=== PATIENT | male | born 1955 | race Two or more races ===

== ENCOUNTER 2018-12-07 08:40 | Outpatient (CLI) | payer MEDICARE, MEDICAID ==
[~2018-12-07 08:40] MED LIST: ACET500C43 PO; BIMA2.5D5 EACHEYE; BRIM5DRO2 EACHEYE; GEMF600T5 PO; SIMV10TA6 PO
[2018-12-07] MEDS ORDERED: CALC1TAB2 PO (20:31)
[2018-12-07] MEDS ORDERED: SITA1TAB6 PO (20:31)
[2018-12-07] MEDS ORDERED: MECL-102 PO (20:31)
[2018-12-07] MEDS ORDERED: CITA10TA17 PO (20:31)
[2018-12-07] MEDS ORDERED: ATOR10TA PO (20:31)
[2018-12-07] MEDS ORDERED: LISI10TA5 PO (20:31)
[2018-12-07] MEDS ORDERED: ASPI-1169 PO (20:31)
[2018-12-07] MEDS ORDERED: FOLI1TAB16 PO (20:31)
== END 2018-12-07 23:59 | disposition home health service (06) ==
LOC: WOU 08:40
PROVIDERS: ATTEND Podiatrist Foot & Ankle Surgery
DX: E11.52 Type 2 diabetes mellitus with diabetic peripheral angiopathy with gangrene (principal); E11.621 Type 2 diabetes mellitus with foot ulcer; I96 Gangrene, not elsewhere classified; L97.522 Non-pressure chronic ulcer of other part of left foot with fat layer exposed; L97.412 Non-pressure chronic ulcer of right heel and midfoot with fat layer exposed; L03.032 Cellulitis of left toe; Z79.84 Long term (current) use of oral hypoglycemic drugs; Z79.82 Long term (current) use of aspirin
CPT/HCPCS: 11042; A6402

== ENCOUNTER 2018-12-07 10:00 | Inpatient (IN) | payer MEDICARE, MEDICAID ==
[~2018-12-07] VITALS: Ht 157.5 cm; Wt 67.1 kg
--- NOTE | 2018-12-07 11:30 | NUR ---
MS RN NOTES ADMITTED 63 YEAR OLD MALE FROM WOUND CLINIC. REPORT RECEIVED FROM LISSA LORENZ. PATIENT SENT BY DR. PEDRAZA. PATIENT AWAKE, ALERT AND ORIENTED X 4, VERBALLY RESPONSIVE AND RESPONDS TO VERBAL AND TACTILE STIMULI. BREATHING EVEN AND UNLABORED. NO ACUTE DISTRESS AT THIS TIME. NO CHANGES IN LOC NOTED. 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 PATIENT REMAINS AMBULATORY AND IS ABLE TO AMBULATE TO THE BATHROOM WITHOUT DIFFICULTY. IV INSERTED ON LEFT AC, g18 WITH GOOD BLOOD RETURN. PATIENT AND CAREGIVER/DTR-IN-LAW ORIENTED TO UNIT, STAFF, PLAN OF CARE AND VERBALIZED UNDERSTANDING. WILL CONTINUE TO MONITOR. BED LOCKED AND IN LOW POSITION. BILATERAL UPPER SIDE RAILS UP AND LOCKED. CALL LIGHT WITHIN EASY REACH
--- NOTE | 2018-12-07 11:45 | NUR ---
MS RN NOTES PATIENT UNDER MEDICAL SUPERVISION OF CHUCKY CORTES NP. MADE AWARE OF PATIENT ARRIVAL. WILL CONTINUE TO MONITOR
[2018-12-07] MEDS ORDERED: FEE PK DOSING 1 MIN EA MC ONE (12:45)
[2018-12-07] MEDS ORDERED: PIPERACILLIN /TAZOBACTAM 3.375 G in IV D5W 50 ML IV ONE (13:00)
[2018-12-07 13:25] LABS: BASOPHILS % (AUTO) 0.5 % (0.0-2.0); EOSINOPHILS % (AUTO) 0.2 % (0.0-6.0); HEMATOCRIT 32 % (39-51); HEMOGLOBIN 10.8 g/dL (13.5-17.5); LYMPHOCYTES # (AUTO) 1.4 /CMM (0.8-4.8); LYMPHOCYTES % (AUTO) 18.8 % (20.0-44.0); MEAN CORPUSCULAR HGB CONC 34 g/dl (31.0-36.0); MEAN CORPUSCULAR VOLUME 89 fL (80-96); MONOCYTES # (AUTO) 0.9 /CMM (0.1-1.30); MONOCYTES % (AUTO) 12.5 % (2.0-12.0); NEUTROPHILS # (AUTO) 5.1 /CMM (1.8-8.9); PLATELET COUNT (AUTO) 194 /CMM (150-450); RED BLOOD CELL COUNT(AUTO) 3.59 MIL/uL (4.5-6.0); WHITE BLOOD COUNT (AUTO) 7.4 K/uL (4.3-11.0)
[2018-12-07 14:00] LABS: ALBUMIN 3.2 g/dL (3.4-5.0); BILIRUBIN,TOTAL 0.5 mg/dL (0.2-1.0); CALCIUM, SERUM 9.1 mg/dL (8.5-10.1); CREATININE 2.1 mg/dL (0.6-1.3); POTASSIUM 4.7 mmol/L (3.5-5.1)
[2018-12-07 14:11] LABS: C-REACTIVE PROTEIN 4.5 mg/dL (0.0-0.9)
[2018-12-07] MEDS ORDERED: VANCOMYCIN 1 GM in IV D5W 250 ML IV ONE (15:00)
[2018-12-07] MEDS ORDERED: DEXTROSE 50%-WATER 50 ML DISP.SYRIN IV PRN (17:00)
[2018-12-07] MEDS ORDERED: *INSULIN REGULAR(HUMULIN R)HUM 100 UNIT/ML VIAL SQ PRN (17:00)
[2018-12-07] MEDS ORDERED: IV NS 0.9% 1,000 ML BAG IV PRN (17:30)
[2018-12-07] MEDS ORDERED: ONDANSETRON HCL/PF 4 MG/2 ML VIAL IV PRN (17:30)
[2018-12-07] MEDS ORDERED: HYDROCODONE/APAP 5/325MG 1 EACH TABLET PO PRN (17:30)
[2018-12-07] MEDS: IV NS 0.9% 1,000 ML IV PRN (17:46)
[2018-12-07] MEDS: BLOOD SUGAR DIAGNOSTIC 1 EACH STRIP VI SCH ×2 (17:46→22:49)
[2018-12-07] MEDS: INSULIN REGULAR, HUMAN 100 UNIT/ML 3 ML VIAL SQ PRN (17:48)
--- NOTE | 2018-12-07 18:53 | NUR ---
MS RN NOTES PATIENT RESTING INSIDE ROOM. AWAKE, ALERT AND ORIENTED, VERBALLY RESPONSIVE AND RESPONDS TO VERBAL AND TACTILE STIMULI. BREATHING EVEN AND UNLABORED. NO CHANGES IN LOC NOTED AT THIS TIME. OFFLOADED BILATERAL FEET WITH PILLOWS. IV REMAINS INTACT AND PATENT. IVF INFUSING WELL. WILL ENDORSE TO INCOMING SHIFT FOR JUAN MANUEL. BED LOCKED AND IN LOW POSITION. BILATERAL UPPER SIDE RAILS UP AND LOCKED. CALL LIGHT WITHIN EASY REAHC
[2018-12-07 20:00] VITALS: BP 141/77
[2018-12-07] MEDS ORDERED: LEVOFLOXACIN (500MG) 500 MG TABLET PO SCH (20:00)
--- NOTE | 2018-12-07 20:00 | NUR ---
WOUND SSIS ARCHITECT INITIAL NOTES RECEIVED REPORT FROM AM NURSE PEARSON AT THE BEDSIDE AND SEEN PT IN BED WATCHING TV AT THIS TIME ,DENIES ANY PAIN OR ANY DISCOMFORT. HE'S ON IVF NS AT 75ML/HR INFUSING ON HIS LEFT AC PATENT AND INTACT. HE'S ALERT ORIENTED KOREAN SPEAKING BUT UNDERSTOOD SOME ALGERIAN. 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 WILL CONTINUE MONITORING.
[2018-12-07] MEDS ORDERED: MECLIZINE HCL 25 MG TABLET PO PRN (20:30)
[2018-12-07] MEDS ORDERED: SITA1TAB6 PO (20:31)
[2018-12-07] MEDS ORDERED: ASPI-1169 PO (20:31)
[2018-12-07] MEDS ORDERED: CITA10TA17 PO (20:31)
[2018-12-07] MEDS ORDERED: CALC1TAB2 PO (20:31)
[2018-12-07] MEDS ORDERED: MECL-102 PO (20:31)
[2018-12-07] MEDS ORDERED: LISI10TA5 PO (20:31)
[2018-12-07] MEDS ORDERED: ATOR10TA PO (20:31)
[2018-12-07] MEDS ORDERED: FOLI1TAB16 PO (20:31)
[2018-12-07] MEDS ORDERED: PIPERACILLIN /TAZOBACTAM 3.375 G in IV D5W 100 ML IV SCH (21:00)
[2018-12-07] MEDS: ATORVASTATIN 10 MG TABLET PO SCH (21:38)
[2018-12-07] MEDS ORDERED: INSULIN REGULAR, HUMAN 100 UNIT/ML 3 ML VIAL ONE (22:32)
[2018-12-07] MEDS ORDERED: LATANOPROST EYE DROP 0.005% 2.5 ML BOTTLE ONE (22:33)
[2018-12-07] MEDS: LATANOPROST EYE DROP 0.005% 2.5 ML BOTTLE OP SCH (22:49)
--- NOTE | 2018-12-07 22:50 | NUR ---
ms servando notes blood sugar checked done 84 no insulin coverage given at this time. no signs of hypo glycemia noted. Ivf still infusing. kept him warm and comfortable at all times. place call light at reach. will continue monitoring.
--- NOTE | 2018-12-08 | NUR ---
PAIN MANAGEMENT NURSE NOTES PT SLEEPING COMFORTABLY IN BED WITH NO SIGNS OF ANY ACUTE DISTRESS NOTED.
--- NOTE | 2018-12-08 03:00 | NUR ---
WOUND DOCUMENTATION NURSE NOTES PT REMAIN SLEEPING WITHOUT ANY DISTRESS NOTED. IVF STILL INFUSING.
[2018-12-08] MEDS: IV NS 0.9% 1,000 ML IV PRN ×2 (06:13→19:43)
[2018-12-08] MEDS: BLOOD SUGAR DIAGNOSTIC 1 EACH STRIP VI SCH ×4 (06:13→21:55)
[2018-12-08] MEDS: INSULIN REGULAR, HUMAN 100 UNIT/ML 3 ML VIAL SQ PRN ×3 (06:16→17:22)
--- NOTE | 2018-12-08 07:15 | NUR ---
WOUND THERAPIST PHYSICAL CLOSING NOTES PT BACK TO REST AFTER MORNING CARE DONE. BLOOD SUGAR ALSO CHECKED 179, 3 UNITS OF INSULIN GIVEN TRESA SQ ORDERED. NO SIGNS OF HYPO/HYPER GLYCEMIA NOTED. STABLE TRESA THE NIGHT AND SLEPT WELL. ALL DUE MEDS GIVEN AND ALL NEEDS MET. KEPT HIM WARM AND COMFORTABLE AT ALL TIMES. PLACE CALL LIGHT AT REACH. IVF NS AT 75ML/HR STILL INFUSING ON HIS LEFT AC PATENT AND INTACT NO REDNESS NOTED. ENDORSE TO AM NURSE FOR CONTINUITY OF CARE.
[2018-12-08 07:34] LABS: BASOPHILS % (AUTO) 0.4 % (0.0-2.0); EOSINOPHILS % (AUTO) 0.6 % (0.0-6.0); HEMATOCRIT 29 % (39-51); HEMOGLOBIN 9.8 g/dL (13.5-17.5); LYMPHOCYTES # (AUTO) 1.3 /CMM (0.8-4.8); LYMPHOCYTES % (AUTO) 22.1 % (20.0-44.0); MEAN CORPUSCULAR HGB CONC 34 g/dl (31.0-36.0); MEAN CORPUSCULAR VOLUME 88 fL (80-96); MONOCYTES # (AUTO) 0.9 /CMM (0.1-1.30); MONOCYTES % (AUTO) 14.9 % (2.0-12.0); NEUTROPHILS # (AUTO) 3.6 /CMM (1.8-8.9); PLATELET COUNT (AUTO) 178 /CMM (150-450); RED BLOOD CELL COUNT(AUTO) 3.25 MIL/uL (4.5-6.0); WHITE BLOOD COUNT (AUTO) 5.8 K/uL (4.3-11.0)
[2018-12-08 07:42] LABS: CALCIUM, SERUM 8.9 mg/dL (8.5-10.1); CREATININE 1.6 mg/dL (0.6-1.3); POTASSIUM 4.5 mmol/L (3.5-5.1)
[2018-12-08] MEDS: LISINOPRIL (10MG) 10 MG TABLET PO SCH (08:26)
[2018-12-08] MEDS: CITALOPRAM HYDROBROMIDE 10 MG TABLET PO SCH (08:27)
[2018-12-08] MEDS: FOLIC ACID 1 MG TABLET PO SCH (08:27)
[2018-12-08] MEDS: ASPIRIN 81 MG TAB.CHEW PO SCH (08:27)
[2018-12-08] MEDS: CALCIUM CARB 600MG /VIT D 1 EACH TABLET PO SCH (08:27)
--- NOTE | 2018-12-08 09:01 | NUR ---
RN OPENING MS NOTES Received patient on room air with no sob or ventilatory distress noted. Patient speaks mainly hungarian. Patient alert awake and oriented. Patient is comfortable lying in bed. IV remains in tact and is infusing well. Call light within reach, safety measures in place.
[2018-12-08] MEDS: TIMOLOL 0.5% SOLN OPHTH 5 ML BOTTLE EACHEYE SCH ×2 (11:22→16:56)
[2018-12-08] MEDS: BRIMONIDINE TARTRATE OPHT SOLN 5 ML BOTTLE EACHEYE SCH ×2 (11:22→16:56)
[2018-12-08] MEDS ORDERED: VANCOMYCIN 1 GM in IV D5W 250 ML IV SCH (15:00)
[2018-12-08] MEDS: LACTOBACILLUS RHAMNOSUS GG 1 EACH CAP.SPRINK PO SCH (16:55)
--- NOTE | 2018-12-08 18:56 | NUR ---
RN MS CLOSING NOTES Patient remains on room air, no sob or ventilatory distress noted. Patient is comfortably lying in bed. Patient's vital signs stable all shift. Patients call light within reach, safety measures in place.
--- NOTE | 2018-12-08 19:30 | NUR ---
WOUND PROCESS TECH INITIAL NOTES RECEIVED REPORT FORM AM NURSE COLT AND SEEN PT IN BED AWAKE AND ALERT DENIES ANY PAIN BUT HE STATES THAT HE FEEL DIZZY . NO N/V NOTED. IVF NS AT 75ML/HR STILL INFUSING ON HIS LEFT AC PATENT AND INTACT. KEPT HIM WARM AND COMFORTABLE AT ALL TIMES. PLACE CALL LIGHT AT REACH AND BED ALARM SET FOR SAFETY. WILL CONTINUE MONITORING.
[2018-12-08 20:00] VITALS: BP 115/48
--- NOTE | 2018-12-08 20:51 | NUR ---
Met with patient and family at bedside. Patient speaks Frisian only, he lives on the first floor apartment with his daughter in law Alessia who is his primary caregiver & IHSS provider. Patient receives 125hrs/month IHSS. He ambulates with a walking stick and requires min assist with adl's. He owns a cane, walker, and wheelchair. He is currently on service with [facility] [place] [phone]. Current dc plan is to return home, family will provide ride. Addendum: 12/08/18 at 2051 by VINICIUS DYE RN Amended: Links added.
[2018-12-08] MEDS: LATANOPROST EYE DROP 0.005% 2.5 ML BOTTLE OP SCH (21:55)
[2018-12-08] MEDS: ATORVASTATIN 10 MG TABLET PO SCH (21:55)
[2018-12-08] MEDS ORDERED: INSULIN GLARGINE, 100 UNIT/ML CARTRIDGE SQ SCH (22:00)
--- NOTE | 2018-12-08 22:00 | NUR ---
TUBE TELLER NOTES ROUTINE MEDS GIVEN AND BLOOD SUGAR CHECKED WELL 171, 16 UNITS OF LANTUS GIVEN AND 3 UNITS OF REGULAR INSULIN. EDUCATE PT REGARDING HIS MEDICATION AND PT UNDERSTOOD WELL. SANDWICH WITH CRANBERRY JUICE SERVED. PT STILL WITH IVF NS AT 75ML/HR. WILL CONTINUE MONITORING. PLACE CALL LIGHT AT REACH.
--- NOTE | 2018-12-09 | NUR ---
WOUND HEALTH TECHNICIAN HEARING NOTES PT ASLEEP AT THIS TIME . BREATHING EVEN AND UNLABORED . IVF STILL INFUSING. WILL CONTINUE MONITORING.
--- NOTE | 2018-12-09 03:00 | NUR ---
WOUND COMPENSATION ASSOCIATE NOTES PT REMAINS ASLEEP WITHOUT ANY DISTRESS NOTED. IVF STILL INFUSING. WILL CONTINUE MONITORING.
[2018-12-09] MEDS: BLOOD SUGAR DIAGNOSTIC 1 EACH STRIP VI SCH ×2 (06:23→13:01)
[2018-12-09] MEDS: INSULIN REGULAR, HUMAN 100 UNIT/ML 3 ML VIAL SQ PRN ×2 (06:24→13:01)
--- NOTE | 2018-12-09 07:26 | NUR ---
WOUND RABBIT BREEDER CLOSINGNOTES PT WOKE UP AND BLOOD SUGAR CHECKED DONE 187, 3 UNITS OF INSULIN GIVEN TRESA SQ ORDERED. NO SIGNS OF HYPER GLYCEMIA NOTED. ALL DUE MEDS GIVEN . SLEPT WELL AND STABLE TRESA THE NIGHT. ALL NEEDS MET. KEPT HIM WARM AND COMFORTABLE AT ALL TIMES. PLACE CALL LIGHT AT REACH. WILL ENDORSE TO AM NURSE FOR CONTINUITY OF CARE.
--- NOTE | 2018-12-09 07:35 | NUR ---
RN MS OPENING NOTES Patient received on room air, no sob or ventilatory distress noted. Patient lying down comfortably and he states that he is not in pain. Vital signs stable, IVF infusing well at 75 ml/hour. Patients call light within reach and safety measures in place.
[2018-12-09 08:00] VITALS: BP 169/72
[2018-12-09] MEDS: CALCIUM CARB 600MG /VIT D 1 EACH TABLET PO SCH (08:17)
[2018-12-09] MEDS: FOLIC ACID 1 MG TABLET PO SCH (08:17)
[2018-12-09] MEDS: ASPIRIN 81 MG TAB.CHEW PO SCH (08:17)
[2018-12-09] MEDS: LACTOBACILLUS RHAMNOSUS GG 1 EACH CAP.SPRINK PO SCH (08:17)
[2018-12-09] MEDS: CITALOPRAM HYDROBROMIDE 10 MG TABLET PO SCH (08:17)
[2018-12-09 08:18] VITALS: BP 169/72
[2018-12-09] MEDS: TIMOLOL 0.5% SOLN OPHTH 5 ML BOTTLE EACHEYE SCH (08:18)
[2018-12-09] MEDS: BRIMONIDINE TARTRATE OPHT SOLN 5 ML BOTTLE EACHEYE SCH (08:18)
[2018-12-09] MEDS: LISINOPRIL (10MG) 10 MG TABLET PO SCH (08:18)
[2018-12-09 08:27] LABS: CALCIUM, SERUM 8.6 mg/dL (8.5-10.1); CREATININE 1.7 mg/dL (0.6-1.3); POTASSIUM 4.4 mmol/L (3.5-5.1)
[2018-12-09] MEDS ORDERED: DAKINS QUARTER STRENGTH (0.125%) 480 ML BOTTLE TOP SCH (09:00)
[2018-12-09] MEDS ORDERED: CADEXOMER IODINE 40 GM TUBE TP SCH (09:00)
--- NOTE | 2018-12-09 14:47 | NUR ---
RN MS NOTES INSTRUCTIONS GIVEN TO PT AND SON REGARDING FOLLOWING UP WITH HIS PRIMARY CARE PHYSICIAN FOR POSSIBLE ANGIOGRAPHY OUT PATIENT, PT ALSO TO FOLLOW UP WITH DR. SAMS, PT VERBALIZED UNDERSTANDING, BELONGINGS ACCOUNTED FOR, ASSISTED TO HOSPITAL LOBBY VIA WHEELCHAIR, LEFT WITH SON IN STABLE CONDITION.
--- NOTE | 2018-12-09 14:47 | NUR ---
KELECHI MS DONNY NOTES Patient was on room air with no sob or ventilatory distress noted when he got discharged. Patient's vital sign was stable and he was in no pain. Patient's wound on his left toe, right klein and heel was taken a photo of and is placed on his chart. Paperwork with patient when he left. Addendum: 12/09/18 at 1453 by ALEXEY KWONG RN Patient was given education about the administration of insulin. Also, checking blood glucose to keep diabetes in control.
== END 2018-12-09 14:00 | disposition home or self-care (01) | DRG 602 ==
LOC: WOUND3 10:31
PROVIDERS: ADMIT Nurse Practitioner Acute Care; ATTEND Nurse Practitioner Acute Care
DX: L03.116 Cellulitis of left lower limb (principal); N17.0 Acute kidney failure with tubular necrosis; L97.419 Non-pressure chronic ulcer of right heel and midfoot with unspecified severity; E11.621 Type 2 diabetes mellitus with foot ulcer; L03.115 Cellulitis of right lower limb; E11.51 Type 2 diabetes mellitus with diabetic peripheral angiopathy without gangrene; E11.65 Type 2 diabetes mellitus with hyperglycemia; E11.22 Type 2 diabetes mellitus with diabetic chronic kidney disease; L97.529 Non-pressure chronic ulcer of other part of left foot with unspecified severity; N18.9 Chronic kidney disease, unspecified; E11.40 Type 2 diabetes mellitus with diabetic neuropathy, unspecified; D63.8 Anemia in other chronic diseases classified elsewhere; E11.42 Type 2 diabetes mellitus with diabetic polyneuropathy; E78.5 Hyperlipidemia, unspecified; H40.9 Unspecified glaucoma; H54.8 Legal blindness, as defined in USA; E11.319 Type 2 diabetes mellitus with unspecified diabetic retinopathy without macular edema; Z79.4 Long term (current) use of insulin
CPT/HCPCS: 36415; 73630-TC; 80048-TC; 80053-TC; 82962-TC; 85025-TC; 85652-TC; 86140-TC; 87081-TC; A6402; A6403; J1815; J2543; J3370; J7030; J7060; J8597

== ENCOUNTER 2018-12-17 10:08 | Outpatient (CLI) | payer MEDICARE, MEDICAID ==
[~2018-12-17 10:08] MED LIST changes: +ASPI-1169 PO; +ATOR10TA PO; +CALC1TAB2 PO; +CITA10TA17 PO; +FOLI1TAB16 PO; +LISI10TA5 PO; +MECL-102 PO
== END 2018-12-17 23:59 | disposition home health service (06) ==
LOC: WOU 10:08
PROVIDERS: ATTEND Podiatrist Foot & Ankle Surgery
DX: E11.621 Type 2 diabetes mellitus with foot ulcer (principal); L97.522 Non-pressure chronic ulcer of other part of left foot with fat layer exposed; L97.412 Non-pressure chronic ulcer of right heel and midfoot with fat layer exposed; E11.52 Type 2 diabetes mellitus with diabetic peripheral angiopathy with gangrene; R60.0 Localized edema; Z79.4 Long term (current) use of insulin; Z79.899 Other long term (current) drug therapy; Z79.82 Long term (current) use of aspirin
CPT/HCPCS: 11042; A6402

== ENCOUNTER 2018-12-24 10:00 | Outpatient (CLI) | payer MEDICARE, MEDICAID | END 2018-12-24 23:59 | disposition home health service (06) | LOC: WOU 10:00 | PROVIDERS: ATTEND Podiatrist Foot & Ankle Surgery | DX: E11.621 Type 2 diabetes mellitus with foot ulcer (principal); L97.412 Non-pressure chronic ulcer of right heel and midfoot with fat layer exposed; L97.522 Non-pressure chronic ulcer of other part of left foot with fat layer exposed; E11.52 Type 2 diabetes mellitus with diabetic peripheral angiopathy with gangrene; Z79.4 Long term (current) use of insulin; Z79.82 Long term (current) use of aspirin | CPT/HCPCS: 11042; A6402 ==

== ENCOUNTER 2018-12-31 10:15 | Outpatient (CLI) | payer MEDICARE, MEDICAID | END 2018-12-31 23:59 | disposition home health service (06) | LOC: WOU 10:15 | PROVIDERS: ATTEND Podiatrist Foot & Ankle Surgery | DX: E11.621 Type 2 diabetes mellitus with foot ulcer (principal); L97.524 Non-pressure chronic ulcer of other part of left foot with necrosis of bone; L97.412 Non-pressure chronic ulcer of right heel and midfoot with fat layer exposed; E11.52 Type 2 diabetes mellitus with diabetic peripheral angiopathy with gangrene; L03.032 Cellulitis of left toe; E11.65 Type 2 diabetes mellitus with hyperglycemia; Z79.4 Long term (current) use of insulin; Z79.82 Long term (current) use of aspirin; Z79.899 Other long term (current) drug therapy | CPT/HCPCS: 11042; 11044; A6402 ==

== ENCOUNTER 2019-01-07 10:17 | Outpatient (CLI) | payer MEDICARE, MEDICAID | END 2019-01-07 23:59 | disposition home health service (06) | LOC: WOU 10:17 | PROVIDERS: ATTEND Podiatrist Foot & Ankle Surgery | DX: E11.621 Type 2 diabetes mellitus with foot ulcer (principal); L97.526 Non-pressure chronic ulcer of other part of left foot with bone involvement without evidence of necrosis; L97.412 Non-pressure chronic ulcer of right heel and midfoot with fat layer exposed; E11.65 Type 2 diabetes mellitus with hyperglycemia; E11.52 Type 2 diabetes mellitus with diabetic peripheral angiopathy with gangrene; L03.032 Cellulitis of left toe; H54.61 Unqualified visual loss, right eye, normal vision left eye; H40.9 Unspecified glaucoma; Z79.4 Long term (current) use of insulin; Z79.899 Other long term (current) drug therapy; Z83.3 Family history of diabetes mellitus | CPT/HCPCS: 11042; A6402 ==

== ENCOUNTER 2019-01-21 10:26 | Outpatient (CLI) | payer MEDICARE, MEDICAID | END 2019-01-21 23:59 | disposition home health service (06) | LOC: WOU 10:26 | PROVIDERS: ATTEND Podiatrist Foot & Ankle Surgery | DX: E11.621 Type 2 diabetes mellitus with foot ulcer (principal); L97.522 Non-pressure chronic ulcer of other part of left foot with fat layer exposed; L97.412 Non-pressure chronic ulcer of right heel and midfoot with fat layer exposed; E11.52 Type 2 diabetes mellitus with diabetic peripheral angiopathy with gangrene; Z79.4 Long term (current) use of insulin; Z79.82 Long term (current) use of aspirin; Z79.899 Other long term (current) drug therapy | CPT/HCPCS: 11042; A6402 ×2 ==

== ENCOUNTER 2019-02-04 09:30 | Outpatient (CLI) | payer MEDICARE, MEDICAID | END 2019-02-04 23:59 | disposition home health service (06) | LOC: WOU 09:30 | PROVIDERS: ATTEND Podiatrist Foot & Ankle Surgery | DX: E11.621 Type 2 diabetes mellitus with foot ulcer (principal); L97.522 Non-pressure chronic ulcer of other part of left foot with fat layer exposed; E11.42 Type 2 diabetes mellitus with diabetic polyneuropathy; L03.032 Cellulitis of left toe; Z79.4 Long term (current) use of insulin | CPT/HCPCS: 11042; A6402 ==

== ENCOUNTER 2019-02-17 09:59 | Outpatient (CLI) | payer MEDICARE, MEDICAID | END 2019-02-17 23:59 | disposition home or self-care (01) | LOC: EDBD 09:59 → MRI 09:59 | PROVIDERS: ATTEND Podiatrist Foot & Ankle Surgery | DX: M86.8X7 Other osteomyelitis, ankle and foot (principal); M19.072 Primary osteoarthritis, left ankle and foot; L97.529 Non-pressure chronic ulcer of other part of left foot with unspecified severity | CPT/HCPCS: 73718-TC ==

== ENCOUNTER 2019-02-18 09:42 | Outpatient (CLI) | payer MEDICARE, MEDICAID | END 2019-02-18 23:59 | disposition home or self-care (01) | LOC: EDBD → WOU 09:42 | PROVIDERS: ATTEND Podiatrist Foot & Ankle Surgery | DX: E11.621 Type 2 diabetes mellitus with foot ulcer (principal); L97.522 Non-pressure chronic ulcer of other part of left foot with fat layer exposed; E11.52 Type 2 diabetes mellitus with diabetic peripheral angiopathy with gangrene; I96 Gangrene, not elsewhere classified; E11.42 Type 2 diabetes mellitus with diabetic polyneuropathy; Z79.4 Long term (current) use of insulin; Z79.899 Other long term (current) drug therapy | CPT/HCPCS: 11042; A6402 ==

== ENCOUNTER 2019-04-08 10:50 | Outpatient (CLI) | payer MEDICARE, MEDICAID | END 2019-04-08 23:59 | disposition home or self-care (01) | LOC: WOU 10:50 | PROVIDERS: ATTEND Podiatrist Foot & Ankle Surgery | DX: E11.621 Type 2 diabetes mellitus with foot ulcer (principal); L97.524 Non-pressure chronic ulcer of other part of left foot with necrosis of bone; L60.3 Nail dystrophy; E11.65 Type 2 diabetes mellitus with hyperglycemia; E11.42 Type 2 diabetes mellitus with diabetic polyneuropathy; E11.51 Type 2 diabetes mellitus with diabetic peripheral angiopathy without gangrene; Z79.4 Long term (current) use of insulin; Z79.899 Other long term (current) drug therapy | CPT/HCPCS: 11044; 82962; A6402 ==

== ENCOUNTER 2020-11-26 11:38 | Inpatient (IN) | payer MEDICARE, OTHER ==
[~2020-11-26] VITALS: Ht 160 cm; Wt 83.1 kg
[~2020-11-26 11:38] MED LIST changes: -GEMF600T5 PO; +GEMF600T90 PO; +LISI10TA29 PO; -LISI10TA5 PO; -MECL-102 PO; +MECL-159 PO; -SIMV10TA6 PO; +SIMV10TA98 PO
[2020-11-26] MEDS ORDERED: PIPERACILLIN /TAZOBACTAM 3.375 G in IV D5W 50 ML IV ONE (12:00)
[2020-11-26] MEDS ORDERED: VANCOMYCIN 1 GM in IV D5W 250 ML IV SCH (12:00)
--- NOTE | 2020-11-26 12:00 | NUR ---
The patient is BIB by her daugter due to being sent by PMD d/t low h/h 7.4, and right foot wound. The patient is placed in ER bed #4. Patient is alert and oriented x3. In room air and denies SOB. Respiration regular and unlabored. The patient is provided with a blanket for comfort. Will continue to monitor.
--- NOTE | 2020-11-26 12:01 | NUR ---
Patient seen my Dr Ji.
--- NOTE | 2020-11-26 12:23 | NUR ---
CALLED PODIATRY WOUND CARE CONSIGNEE
[2020-11-26 12:24] LABS: BASOPHILS # (AUTO) 0.1 /CMM (0.0-0.2); BASOPHILS % (AUTO) 0.4 % (0.0-2.0); EOSINOPHILS % (AUTO) 0.2 % (0.0-6.0); HEMATOCRIT 29 % (39-51); HEMOGLOBIN 9.4 g/dL (13.5-17.5); LYMPHOCYTES # (AUTO) 1.3 /CMM (0.8-4.8); MEAN CORPUSCULAR HGB CONC 32 g/dl (31.0-36.0); MEAN CORPUSCULAR VOLUME 89 fL (80-96); MONOCYTES % (AUTO) 6.2 % (2.0-12.0); NEUTROPHILS # (AUTO) 13.6 /CMM (1.8-8.9); NEUTROPHILS % (AUTO) 85.2 % (43.0-81.0); PLATELET COUNT (AUTO) 539 /CMM (150-450); RED BLOOD CELL COUNT(AUTO) 3.27 MIL/uL (4.5-6.0)
[2020-11-26] MEDS ORDERED: CYAN-51 PO (12:25)
[2020-11-26] MEDS ORDERED: CEFD300C3 PO (12:25)
[2020-11-26] MEDS ORDERED: SITA1TAB6 PO (12:25)
[2020-11-26] MEDS ORDERED: CHOL100062 PO (12:25)
[2020-11-26] MEDS ORDERED: CLOP75TA15 PO (12:25)
[2020-11-26] MEDS ORDERED: MAGN500C16 PO (12:25)
[2020-11-26] MEDS ORDERED: FENO145T21 PO (12:26)
[2020-11-26 12:33] LABS: CALCIUM, SERUM 8.5 mg/dL (8.5-10.1); POTASSIUM 4.3 mmol/L (3.5-5.1)
[2020-11-26 12:40] LABS: CREATININE 9.1 mg/dL (0.6-1.3)
--- NOTE | 2020-11-26 12:54 | NUR ---
PAGED EPIC SURGEON PARTNER FOR PENDING ADMIT
[2020-11-26 12:55] LABS: BILIRUBIN,DIRECT 0.1 mg/dL (0.0-0.2); BILIRUBIN,TOTAL 0.3 mg/dL (0.2-1.0)
[2020-11-26 12:56] LABS: ALBUMIN 1.2 g/dL (3.4-5.0); TOTAL PROTEIN, SERUM 7.6 g/dL (6.4-8.2)
--- NOTE | 2020-11-26 13:49 | NUR ---
NURSING SUP CALLED. PT IN 327 BED 2
--- NOTE | 2020-11-26 13:54 | NUR ---
patient is covid negative per lab.
--- NOTE | 2020-11-26 14:06 | NUR ---
Report given to nurse Arias.
--- NOTE | 2020-11-26 14:47 | NUR ---
Transfered the patient to [facility]. Patient tarnsfered in stable conditon.
[2020-11-26] MEDS ORDERED: IV NS 0.9% 1,000 ML IV PRN (15:00)
[2020-11-26] MEDS ORDERED: ONDANSETRON HCL/PF 4 MG/2 ML VIAL IVP PRN (15:00)
[2020-11-26] MEDS ORDERED: MAG HYDROX/AL HYDROX/SIMETH 30 ML UDC PO PRN (15:00)
[2020-11-26] MEDS ORDERED: ZOLPIDEM TARTRATE 5 MG TABLET PO PRN (15:00)
[2020-11-26] MEDS ORDERED: Z GUARD REMEDY 2 OZ OINT TP PRN (15:00)
[2020-11-26] MEDS ORDERED: HYDROCODONE/APAP 5/325MG TABLET PO PRN (15:00)
[2020-11-26] MEDS ORDERED: MAGNESIUM HYDROXIDE 30 ML UDC PO PRN (15:00)
--- NOTE | 2020-11-26 15:00 | NUR ---
MS/RN NOTE RECEIVED PATIENT FROM ER NURSE. PATIENT VS WNL. NO ACUTE DISTRESS NOTED. NO SOB NOTED. WILL CONTINUE TO MONITOR.
[2020-11-26 16:00] VITALS: BP 169/76
[2020-11-26] MEDS: TIMOLOL 0.5% SOLN OPHTH 5 ML BOTTLE EACHEYE SCH (16:49)
[2020-11-26] MEDS: BRIMONIDINE TARTRATE OPHT SOLN 5 ML BOTTLE EACHEYE SCH (16:49)
--- NOTE | 2020-11-26 18:50 | NUR ---
MS/RN CLOSING NOTE PATIENT IS ASLEEP IN BED, EASILY WOKEN UP. A/0 X3 MALTESE SPEAKING, NO ACUTE DISTRESS NOTED. PATIENT IS ON ROOM AIR, TOLERATING WELL, BREATHING EVEN, NON LABORED, NO SOB NOTED. SAFETY MEASURES IN PLACE, BED LOCKED AND IN LOWEST POSITION, CALL LIGHT WITHIN REACH. ALL NEEDS MET THROUGHOUT THE SHIFT. WILL ENDORSE TO INFORMATION SYSTEMS DIRECTOR, NURSE.
[2020-11-26] MEDS: IV D5/ 0.9% NACL 1,000 ML IV PRN (18:59)
--- NOTE | 2020-11-26 19:35 | NUR ---
MSRN FULLY AWAKE. CROATIAN SPEAKING ONLY. RIGHT FOOT ELEVATED ON PILLOWS. NO DISCOMFORTS MADE. NPO TILL FURTHER ORDERS. PRESENT IVF INFUSING WELL. CLOSELY WATCHED.
[2020-11-26 20:00] VITALS: BP 168/73
[2020-11-26] MEDS: HEPARIN SODIUM, PORCINE 5000 UNITS/1 ML VIAL SQ SCH (21:44)
[2020-11-26] MEDS: PIPERACILLIN /TAZOBACTAM 2.25 G in IV D5W 50 ML IV SCH (21:45)
[2020-11-26] MEDS: ATORVASTATIN 10 MG TABLET PO SCH (21:46)
[2020-11-26] MEDS: LATANOPROST EYE DROP 0.005% 2.5 ML BOTTLE EACHEYE SCH (21:48)
[2020-11-26] MEDS ORDERED: INSULIN GLARGINE, 100 UNIT/ML CARTRIDGE SQ SCH (22:00)
--- NOTE | 2020-11-26 22:00 | NUR ---
MSRN BS 233. LANTUS 8 MG SQ ADMINISTERED. OTHER DUE MEDS GIVEN WITH SIPS OF WATER. OTHERWISE NPO ORDERED, PRESENT IVF D5NS INFUSING WELL. KEPT COMFORTABLE.
[2020-11-26] MEDS: INSULIN GLARGINE, 100 UNIT/ML CARTRIDGE SQ SCH (22:33)
[2020-11-26] MEDS ORDERED: DEXTROSE 50%-WATER 50 ML DISP.SYRIN IV PRN (23:00)
--- NOTE | 2020-11-27 03:00 | NUR ---
MSRN SLEEPING EASILY AWAKENED WHEN CALLED. DENIES ANY DISCOMFORTS. CLOSELY WATCHED
[2020-11-27] MEDS: PIPERACILLIN /TAZOBACTAM 2.25 G in IV D5W 50 ML IV SCH ×3 (05:12→22:36)
[2020-11-27] MEDS: INSULIN REGULAR, HUMAN 100 UNIT/ML 3 ML VIAL SQ PRN ×4 (06:22→23:13)
--- NOTE | 2020-11-27 06:28 | NUR ---
MSRN BLOOD SUGAR 261, 6 UNITS REGULAR INSULIN SQ GIVEN. KEPT NPO TILL FURTHER ORDERS. PRESENT IVF INFUSING WELL.
[2020-11-27] MEDS: BLOOD SUGAR DIAGNOSTIC 1 EACH STRIP IN SCH ×4 (06:31→23:11)
[2020-11-27 06:40] LABS: BASOPHILS # (AUTO) 0.1 /CMM (0.0-0.2); BASOPHILS % (AUTO) 0.6 % (0.0-2.0); EOSINOPHILS % (AUTO) 0.5 % (0.0-6.0); HEMATOCRIT 27 % (39-51); HEMOGLOBIN 8.9 g/dL (13.5-17.5); LYMPHOCYTES # (AUTO) 1.3 /CMM (0.8-4.8); LYMPHOCYTES % (AUTO) 11.5 % (20.0-44.0); MEAN CORPUSCULAR HGB CONC 33 g/dl (31.0-36.0); MEAN CORPUSCULAR VOLUME 88 fL (80-96); MONOCYTES # (AUTO) 0.9 /CMM (0.1-1.30); MONOCYTES % (AUTO) 8.4 % (2.0-12.0); NEUTROPHILS # (AUTO) 8.7 /CMM (1.8-8.9); PLATELET COUNT (AUTO) 522 /CMM (150-450); RED BLOOD CELL COUNT(AUTO) 3.09 MIL/uL (4.5-6.0)
--- NOTE | 2020-11-27 07:45 | NUR ---
MS OPENING NOTES Patient is alert and oriented. On room air saturation of 99%. No c/o pain or discomfort. IV NS/D5 running at 60 cc/hour. Patient on NPO except meds per endorsement. Bed is in lowest and locked position. Call light with in reach. Will continue to monitor.
[2020-11-27 08:00] VITALS: BP 128/64
[2020-11-27 08:09] LABS: CALCIUM, SERUM 8.2 mg/dL (8.5-10.1); MAGNESIUM 2.4 mg/dL (1.8-2.4); PHOSPHORUS 7.1 mg/dL (2.5-4.9); POTASSIUM 4.5 mmol/L (3.5-5.1)
[2020-11-27 08:10] LABS: CREATININE 8.9 mg/dL (0.6-1.3)
[2020-11-27 08:12] VITALS: BP 127/44
[2020-11-27] MEDS: BRIMONIDINE TARTRATE OPHT SOLN 5 ML BOTTLE EACHEYE SCH ×2 (08:58→17:38)
[2020-11-27] MEDS: TIMOLOL 0.5% SOLN OPHTH 5 ML BOTTLE EACHEYE SCH ×2 (08:58→17:38)
[2020-11-27] MEDS: PANTOPRAZOLE 40 MG TABLET.DR PO SCH (08:59)
[2020-11-27] MEDS: FENOFIBRATE NANOCRYS (145 MG) 145 MG TABLET PO SCH (08:59)
[2020-11-27] MEDS: CHOLECALCIFEROL 1,000 UNIT TABLET (VIT D3) PO SCH (08:59)
[2020-11-27] MEDS: CYANOCOBALAMIN 500 MCG TABLET PO SCH (09:00)
[2020-11-27] MEDS: DAKINS QUARTER STRENGTH (0.125%) 480 ML BOTTLE TOP SCH (09:00)
[2020-11-27] MEDS: CLOPIDOGREL BISULFATE 75 MG TABLET PO SCH (09:00)
[2020-11-27] MEDS ORDERED: LISINOPRIL (10MG) 10 MG TABLET PO SCH (09:00)
[2020-11-27] MEDS: HEPARIN SODIUM, PORCINE 5000 UNITS/1 ML VIAL SQ SCH ×2 (09:01→22:38)
--- NOTE | 2020-11-27 11:30 | NUR ---
SPOKE TO MD REGARDING DIET AND PER MD , SHE WILL FOLLOW UP WITH DR COTE DUE TO POSSIBILITY OF HD CATH PLACEMENT. PATIENT CONTINUES TO BE ON NPO. MD AWARE THAT PATIENT RECEIVED HIS MORNING MEDICATIONS WITH SMALL SIP OF WATER PO.
[2020-11-27] MEDS: IV D5/ 0.9% NACL 1,000 ML IV PRN (15:18)
[2020-11-27 16:25] VITALS: BP 144/50
--- NOTE | 2020-11-27 19:47 | NUR ---
MS CLOSING NOTES Patient is alert and oriented. On room air saturation of 94%. No c/o pain or discomfort.IV NS/D5 running at 60 cc/hour. Bed is in lowest and locked position. Wound care provided during shift to right foot. Patient's diet changed to renal GREGORY per MD Ewing orders from NPO. Bed is in lowest and locked position.Call light with in reach. Endorsed to next shift for follow up.
[2020-11-27 20:00] VITALS: BP 116/55
--- NOTE | 2020-11-27 20:17 | NUR ---
RN NOTES PATIENT IS A/OX4. NO RESPIRATORY DISTRESS. ON ROOM AIR, O2 SAT 100%. WITH LEFT AC #18 RUNNING D5NS@ 60CC/HR, NO S/S OF ANY INFILTRATION. DENIES ANY PAIN OR DISCOMFORT AT THIS TIME. BED LOCKED AND IN LOWEST POSITION. CALL LIGHT WITHIN REACH. WILL CONTINUE TO MONITOR.
[2020-11-27 20:45] VITALS: BP 116/55
[2020-11-27] MEDS: LATANOPROST EYE DROP 0.005% 2.5 ML BOTTLE EACHEYE SCH (22:39)
[2020-11-27] MEDS: ATORVASTATIN 10 MG TABLET PO SCH (22:39)
[2020-11-27] MEDS: INSULIN GLARGINE, 100 UNIT/ML CARTRIDGE SQ SCH (23:11)
[2020-11-28 00:40] LABS: BILIRUBIN,URINE NEGATIVE (NEGATIVE); COLOR,URINE YELLOW (YELLOW); LEUKOCYTE ESTERASE ,URINE NEGATIVE (NEGATIVE); NITRITE, URINE NEGATIVE (NEGATIVE); PROTEIN,URINE >=300 mg/dl (NEGATIVE); UGLUCOSE 500 MG/DL mg/dL (NEGATIVE); UROBILINOGEN,URINE 0.2 EU/dL (0.2)
[2020-11-28 00:52] LABS: CREATININE, URINE 70.8 MG/DL (30.0-125.0); URINE TOTAL PROTEIN 552.2 mg/dL (0-11.9)
[2020-11-28 00:54] LABS: BACTERIA,URINE Few /HPF (None Seen); SQUAMOUS EPITHELIAL CELL,UR Rare /HPF (None Seen)
[2020-11-28] MEDS: PIPERACILLIN /TAZOBACTAM 2.25 G in IV D5W 50 ML IV SCH (04:54)
[2020-11-28 05:40] LABS: EOSINOPHIL,URINE None Seen
[2020-11-28] MEDS: BLOOD SUGAR DIAGNOSTIC 1 EACH STRIP IN SCH ×3 (06:40→17:18)
[2020-11-28] MEDS: INSULIN REGULAR, HUMAN 100 UNIT/ML 3 ML VIAL SQ PRN (06:43)
[2020-11-28 06:54] LABS: BASOPHILS # (AUTO) 0.1 /CMM (0.0-0.2); BASOPHILS % (AUTO) 0.9 % (0.0-2.0); EOSINOPHILS % (AUTO) 0.7 % (0.0-6.0); HEMATOCRIT 23 % (39-51); HEMOGLOBIN 7.7 g/dL (13.5-17.5); LYMPHOCYTES # (AUTO) 1.7 /CMM (0.8-4.8); LYMPHOCYTES % (AUTO) 16.8 % (20.0-44.0); MEAN CORPUSCULAR HGB CONC 33 g/dl (31.0-36.0); MEAN CORPUSCULAR VOLUME 89 fL (80-96); MONOCYTES # (AUTO) 0.9 /CMM (0.1-1.30); NEUTROPHILS # (AUTO) 7.2 /CMM (1.8-8.9); NEUTROPHILS % (AUTO) 72.6 % (43.0-81.0); PLATELET COUNT (AUTO) 486 /CMM (150-450); RED BLOOD CELL COUNT(AUTO) 2.62 MIL/uL (4.5-6.0); WHITE BLOOD COUNT (AUTO) 9.9 K/uL (4.3-11.0)
[2020-11-28 07:08] LABS: PTH, INTACT 163 pg/mL (15-65)
[2020-11-28 07:11] LABS: CALCIUM, SERUM 7.6 mg/dL (8.5-10.1); MAGNESIUM 2.1 mg/dL (1.8-2.4); PHOSPHORUS 6.7 mg/dL (2.5-4.9)
[2020-11-28 07:12] LABS: CREATININE 9.3 mg/dL (0.6-1.3)
--- NOTE | 2020-11-28 07:29 | NUR ---
RN NOTE PATIENT IS A/OX4. NO RESPIRATORY DISTRESS. ON ROOM AIR, O2 SAT 100%. WITH LEFT AC #18 RUNNING D5NS@ 60CC/HR, NO S/S OF ANY INFILTRATION. DENIES ANY PAIN OR DISCOMFORT AT THIS TIME. ALL DUE MEDS GIVEN ORDERED AND TOLERATED WELL. NEEDS ATTENDED PROMPTLY. BED LOCKED AND IN LOWEST POSITION. CALL LIGHT WITHIN REACH. WILL ENDORSE TO ONCOMING SHIFT.
--- NOTE | 2020-11-28 07:54 | NUR ---
WOUND CARE CONSULT: PT PRESENTS WITH DRY BLACK NECROTIC TISSUE TO RT FOOT, PRESENT ON ADMISSION. NO DRAINAGE NOTED. RESOLVING EDEMA NOTED TO BOTH LOWER LEGS AND SCAR NOTED TO LEFT ANKLE. PT ASSISTS WITH TURNING AND REPOSITIONING IN BED AND IS CONTINENT AT THIS TIME. PT FOLLOWED BY VASCULAR MD AND DPM FOR FOOT. RECOMMENDATIONS MADE FOR SKIN PROTECTION. DISCUSSED WITH NURSING STAFF. DEFER TO SURGICAL TEAMS CURRENTLY ON CASE FOR WOUND TREATMENT PLAN. MD IN AGREEMENT WITH PLAN OF CARE.
--- NOTE | 2020-11-28 07:57 | NUR ---
MS RN OPENING NOTES: RECEIVED PATIENT IN BED, AWAKE, WALLISIAN SPEAKING, A/O X4. PATIENT ON ROOM AIR; BREATHING EVEN AND UNLABORED AT THIS TIME. NO COMPLAINS OF PAIN. LAC IV ACCESS PRESENT AND INTACT INFUSING D5NS @ 60 MLS/HR. SAFETY PRECAUTIONS IN PLACE; BED IN LOW POSITION AND LOCKED, RAILS UP X2, CALL LIGHT WITHIN REACH. WILL CONTINUE TO MONITOR PATIENT.
[2020-11-28 08:00] VITALS: BP 105/44
[2020-11-28] MEDS: CHOLECALCIFEROL 1,000 UNIT TABLET (VIT D3) PO SCH (08:57)
[2020-11-28] MEDS: FENOFIBRATE NANOCRYS (145 MG) 145 MG TABLET PO SCH (08:58)
[2020-11-28] MEDS: CYANOCOBALAMIN 500 MCG TABLET PO SCH (08:58)
[2020-11-28] MEDS: PANTOPRAZOLE 40 MG TABLET.DR PO SCH (08:58)
[2020-11-28] MEDS: CLOPIDOGREL BISULFATE 75 MG TABLET PO SCH (08:58)
[2020-11-28] MEDS: DAKINS QUARTER STRENGTH (0.125%) 480 ML BOTTLE TOP SCH (08:59)
[2020-11-28] MEDS: HEPARIN SODIUM, PORCINE 5000 UNITS/1 ML VIAL SQ SCH ×2 (09:00→21:00)
[2020-11-28] MEDS: TIMOLOL 0.5% SOLN OPHTH 5 ML BOTTLE EACHEYE SCH ×2 (09:02→16:45)
[2020-11-28] MEDS: BRIMONIDINE TARTRATE OPHT SOLN 5 ML BOTTLE EACHEYE SCH ×2 (09:03→16:46)
[2020-11-28 12:06] LABS: *SPE A/G RATIO 0.3 (0.7-1.7); *SPE ALBUMIN 1.4 g/dL (2.9-4.4); *SPE ALPHA-1-GLOBULIN 0.4 g/dL (0.0-0.4); *SPE ALPHA-2-GLOBULIN 1.1 g/dL (0.4-1.0); *SPE BETA GLOBULIN 1.1 g/dL (0.7-1.3); *SPE GLOBULIN, TOTAL 4.2 g/dL (2.2-3.9); *SPE M-SPIKE Not Observed g/dL (Not Observed); *SPEGAMMA GLOBULIN 1.7 g/dL (0.4-1.8)
[2020-11-28] MEDS: IV D5/ 0.9% NACL 1,000 ML IV PRN (14:07)
[2020-11-28] MEDS: METRONIDAZOLE 500MG/ NS 100ML 500 MG in PREMIX 1 EA IV SCH ×2 (14:08→21:47)
[2020-11-28] MEDS: CEFEPIME 1 GM in IV D5W 50 ML IV SCH (15:13)
[2020-11-28 16:00] VITALS: BP 142/53
[2020-11-28 20:00] VITALS: BP 144/57
--- NOTE | 2020-11-28 20:29 | NUR ---
RN NOTES PATIENT RECEIVED RESTING IN BED, A/OX4. DENIES ANY PAIN, NO RESPIRATORY DISTRESS. ON ROOM AIR, O2 SAT 100%. LEFT AC #18 INFUSING D5NS@ 60CC/HR, SITE CLEAN AND DRY, NO SIGNS OF INFILTRATION. PATIENT REPOSITIONED IN BED, DRESSING TO RLE INTACT, NO DRAINAGE NOTED. BED LOCKED AND IN LOWEST POSITION. CALL LIGHT WITHIN REACH. WILL CONTINUE TO MONITOR CLOSELY.
[2020-11-28] MEDS: LINEZOLID RTU BAG 600 MG in PREMIX 1 EA IV SCH (21:00)
[2020-11-28] MEDS: LATANOPROST EYE DROP 0.005% 2.5 ML BOTTLE EACHEYE SCH (21:48)
[2020-11-28] MEDS: ATORVASTATIN 10 MG TABLET PO SCH (21:48)
[2020-11-28] MEDS: INSULIN GLARGINE, 100 UNIT/ML CARTRIDGE SQ SCH (21:56)
--- NOTE | 2020-11-28 21:57 | NUR ---
PATIENT'S HEPARIN HELD DUE TO LOW H/H 7.04/12, NO SIGNS OF ANY OVERT BLEEDING. PT REFUSED REGULAR INSULIN. LANTUS GIVEN, BLOOD GLUCOSE 144. WILL MONITOR CLOSELY FOR SIGNS OF HYPO/HYPER GLYCEMIA.
[2020-11-29] MEDS: METRONIDAZOLE 500MG/ NS 100ML 500 MG in PREMIX 1 EA IV SCH ×3 (05:20→20:42)
[2020-11-29] MEDS: BLOOD SUGAR DIAGNOSTIC 1 EACH STRIP IN SCH ×5 (05:50→23:57)
[2020-11-29] MEDS: INSULIN REGULAR, HUMAN 100 UNIT/ML 3 ML VIAL SQ PRN ×4 (05:53→23:58)
[2020-11-29 06:44] LABS: BASOPHILS # (AUTO) 0.1 /CMM (0.0-0.2); BASOPHILS % (AUTO) 0.8 % (0.0-2.0); EOSINOPHILS % (AUTO) 0.5 % (0.0-6.0); HEMATOCRIT 28 % (39-51); LYMPHOCYTES # (AUTO) 1.6 /CMM (0.8-4.8); LYMPHOCYTES % (AUTO) 14.1 % (20.0-44.0); MEAN CORPUSCULAR HGB CONC 33 g/dl (31.0-36.0); MEAN CORPUSCULAR VOLUME 88 fL (80-96); MONOCYTES # (AUTO) 0.9 /CMM (0.1-1.30); MONOCYTES % (AUTO) 7.9 % (2.0-12.0); NEUTROPHILS # (AUTO) 8.7 /CMM (1.8-8.9); NEUTROPHILS % (AUTO) 76.7 % (43.0-81.0); PLATELET COUNT (AUTO) 577 /CMM (150-450); RED BLOOD CELL COUNT(AUTO) 3.12 MIL/uL (4.5-6.0); WHITE BLOOD COUNT (AUTO) 11.4 K/uL (4.3-11.0)
[2020-11-29 07:09] LABS: CALCIUM, SERUM 7.6 mg/dL (8.5-10.1); PHOSPHORUS 7.1 mg/dL (2.5-4.9); POTASSIUM 3.6 mmol/L (3.5-5.1)
[2020-11-29 07:14] LABS: CREATININE 9.1 mg/dL (0.6-1.3)
[2020-11-29 08:00] VITALS: BP 120/46
--- NOTE | 2020-11-29 08:00 | NUR ---
MS RN OPENING NOTES: RECEIVED PATIENT RESTING IN BED, EASILY AROUSABLE. A/O X4. PATIENT ON ROOM AIR; BREATHING EVEN AND UNLABORED AT THIS TIME. NO PAIN NOTED. LAC IV ACCESS PRESENT AND INTACT. SAFETY PRECAUTIONS IN PLACE; BED IN LOW POSITION AND LOCKED, RAILS UP X2, CALL LIGHT WITHIN REACH. WILL CONTINUE TO MONITOR.
[2020-11-29] MEDS: PANTOPRAZOLE 40 MG TABLET.DR PO SCH (08:58)
[2020-11-29] MEDS: CYANOCOBALAMIN 500 MCG TABLET PO SCH (08:59)
[2020-11-29] MEDS: CHOLECALCIFEROL 1,000 UNIT TABLET (VIT D3) PO SCH (08:59)
[2020-11-29] MEDS: FENOFIBRATE NANOCRYS (145 MG) 145 MG TABLET PO SCH (09:00)
[2020-11-29] MEDS: CLOPIDOGREL BISULFATE 75 MG TABLET PO SCH (09:00)
[2020-11-29] MEDS: HEPARIN SODIUM, PORCINE 5000 UNITS/1 ML VIAL SQ SCH ×2 (09:09→21:08)
[2020-11-29] MEDS: LINEZOLID RTU BAG 600 MG in PREMIX 1 EA IV SCH ×2 (09:11→21:57)
[2020-11-29] MEDS: TIMOLOL 0.5% SOLN OPHTH 5 ML BOTTLE EACHEYE SCH ×2 (09:12→16:51)
[2020-11-29] MEDS: BRIMONIDINE TARTRATE OPHT SOLN 5 ML BOTTLE EACHEYE SCH ×2 (09:13→16:51)
[2020-11-29] MEDS: DAKINS QUARTER STRENGTH (0.125%) 480 ML BOTTLE TOP SCH (09:15)
[2020-11-29] MEDS: CEFEPIME 1 GM in IV D5W 50 ML IV SCH (13:16)
[2020-11-29] MEDS: IV D5/ 0.9% NACL 1,000 ML IV PRN (14:37)
[2020-11-29 16:00] VITALS: BP 120/54
--- NOTE | 2020-11-29 18:45 | NUR ---
MS RN CLOSING NOTES: PATIENT IS RESTING IN BED. A/O X3. NO PAIN OR SIGNS OF DISTRESS NOTED. LEFT AC IV #20 RUNNING D5NS @ 60ML/HR. BOWEL MOVEMENT X1. PT SPOKE WITH PSYCHIATRIST IN AM REGARDING DEPRESSION - PT TO START ANTIDEPRESSANT MEDICATION TONIGHT. BED IN LOWEST AND LOCKED POSITION. CALL LIGHT WITHIN REACH. WILL ENDORSE TO SETTER HELPER NURSE.
--- NOTE | 2020-11-29 19:30 | NUR ---
MS RN OPENING NOTE RECEIVED PATIENT IN BED. A/OX4. TOLERATING ROOM AIR. RESPIRATIONS ARE EVEN AND UNLABORED. NO S/S SOB NOTED. NO C/O PAIN NOTED. IN NO APPARENT DISTRESS. IV ACCESS IN LAC RUNNING D5NS@60ML/HR. BED IS LOW AND LOCKED, SIDE RIALS UP X3, CALL LIGHT WITHIN REACH. WILL CONTINUE TO MONITOR THROUGHOUT SHIFT.
[2020-11-29 20:00] VITALS: BP 144/52
[2020-11-29] MEDS: ATORVASTATIN 10 MG TABLET PO SCH (21:06)
[2020-11-29] MEDS: MIRTAZAPINE 15 MG TABLET PO SCH (21:06)
[2020-11-29] MEDS: LATANOPROST EYE DROP 0.005% 2.5 ML BOTTLE EACHEYE SCH (21:06)
[2020-11-29] MEDS: INSULIN GLARGINE, 100 UNIT/ML CARTRIDGE SQ SCH (21:19)
[2020-11-30] MEDS: BLOOD SUGAR DIAGNOSTIC 1 EACH STRIP IN SCH ×3 (05:48→17:52)
[2020-11-30] MEDS: METRONIDAZOLE 500MG/ NS 100ML 500 MG in PREMIX 1 EA IV SCH ×3 (05:48→20:42)
[2020-11-30] MEDS: INSULIN REGULAR, HUMAN 100 UNIT/ML 3 ML VIAL SQ PRN ×3 (06:00→17:54)
[2020-11-30 06:42] LABS: BASOPHILS # (AUTO) 0.1 /CMM (0.0-0.2); BASOPHILS % (AUTO) 0.6 % (0.0-2.0); EOSINOPHILS % (AUTO) 0.6 % (0.0-6.0); HEMATOCRIT 28 % (39-51); HEMOGLOBIN 9.2 g/dL (13.5-17.5); LYMPHOCYTES # (AUTO) 1.8 /CMM (0.8-4.8); LYMPHOCYTES % (AUTO) 16.5 % (20.0-44.0); MEAN CORPUSCULAR HGB CONC 33 g/dl (31.0-36.0); MEAN CORPUSCULAR VOLUME 89 fL (80-96); MONOCYTES # (AUTO) 1.1 /CMM (0.1-1.30); MONOCYTES % (AUTO) 10.4 % (2.0-12.0); NEUTROPHILS # (AUTO) 7.7 /CMM (1.8-8.9); NEUTROPHILS % (AUTO) 71.9 % (43.0-81.0); PLATELET COUNT (AUTO) 587 /CMM (150-450); RED BLOOD CELL COUNT(AUTO) 3.12 MIL/uL (4.5-6.0); WHITE BLOOD COUNT (AUTO) 10.7 K/uL (4.3-11.0)
--- NOTE | 2020-11-30 06:58 | NUR ---
MS RN CLOSING NOTE PATIENT RESTING IN BED. A/OX4. TOLERATING ROOM AIR. NO RESP DISTRESS. NO C/O PAIN. NO DISTRESS. IV ACCESS MAINTAINED IN LAC RUNNING D5NS@60ML/HR. BED REMAINS LOW AND LOCKED, SIDE RIALS UP X3, CALL LIGHT WITHIN REACH. WILL ENDORSE TO ONCOMING SHIFT.
[2020-11-30 07:04] LABS: CALCIUM, SERUM 8.3 mg/dL (8.5-10.1); MAGNESIUM 2.1 mg/dL (1.8-2.4); PHOSPHORUS 7.1 mg/dL (2.5-4.9); POTASSIUM 3.9 mmol/L (3.5-5.1)
[2020-11-30 07:09] LABS: CREATININE 9.1 mg/dL (0.6-1.3)
--- NOTE | 2020-11-30 08:08 | NUR ---
MS RN OPENING NOTE RECEIVED PATIENT RESTING IN BED. AWAKE, A/OX4. TOLERATING ROOM AIR. RESPIRATIONS ARE EVEN AND UNLABORED. NO S/S SOB NOTED. NO PAIN NOTED. NO DISTRESS NOTED. IV ACCESS IN LEFT AC RUNNING D5NS @60ML/HR. BED IS LOW AND LOCKED, SIDE RIALS UP X3, CALL LIGHT WITHIN REACH. WILL CONTINUE TO MONITOR.
[2020-11-30] MEDS: CLOPIDOGREL BISULFATE 75 MG TABLET PO SCH (08:22)
[2020-11-30] MEDS: CYANOCOBALAMIN 500 MCG TABLET PO SCH (08:22)
[2020-11-30] MEDS: TIMOLOL 0.5% SOLN OPHTH 5 ML BOTTLE EACHEYE SCH ×2 (08:23→16:29)
[2020-11-30] MEDS: FENOFIBRATE NANOCRYS (145 MG) 145 MG TABLET PO SCH (08:23)
[2020-11-30] MEDS: BRIMONIDINE TARTRATE OPHT SOLN 5 ML BOTTLE EACHEYE SCH ×2 (08:23→16:29)
[2020-11-30] MEDS: CHOLECALCIFEROL 1,000 UNIT TABLET (VIT D3) PO SCH (08:23)
[2020-11-30] MEDS: LINEZOLID RTU BAG 600 MG in PREMIX 1 EA IV SCH ×2 (08:23→21:25)
[2020-11-30] MEDS: PANTOPRAZOLE 40 MG TABLET.DR PO SCH (08:23)
[2020-11-30] MEDS: HEPARIN SODIUM, PORCINE 5000 UNITS/1 ML VIAL SQ SCH ×2 (08:24→20:46)
[2020-11-30] MEDS: DAKINS QUARTER STRENGTH (0.125%) 480 ML BOTTLE TOP SCH (08:28)
[2020-11-30 08:34] VITALS: BP 167/60
--- NOTE | 2020-11-30 09:50 | NUR ---
WOUND CARE: WOUND CARE ORDERS CLARIFIED WITH DR SAMS AND DISCUSSED WITH NURSING STAFF.
[2020-11-30] MEDS ORDERED: Magnesium 1GM/D5W 100ML PREMIX 100 ML IV SCH (10:00)
[2020-11-30] MEDS ORDERED: VANCOMYCIN 1 GM in IV D5W 250ml IV SCH (13:00)
--- NOTE | 2020-11-30 13:18 | NUR ---
RN NOTES PATIENT WAS PICKED UP BY DIESEL INSTRUCTOR VIA WHEELCHAIR FOR MRI PROCEDURE.
[2020-11-30] MEDS: CEFEPIME 1 GM in IV D5W 50 ML IV SCH (14:44)
[2020-11-30 15:55] VITALS: BP 158/76
--- NOTE | 2020-11-30 18:10 | NUR ---
MS RN CLOSING NOTES: PATIENT IS RESTING IN BED. A/O X3. NO PAIN OR SIGNS OF DISTRESS NOTED. LEFT AC IV #20 RUNNING D5NS @ 60ML/HR. BOWEL MOVEMENT X2 THIS SHIFT. MRI DONE THIS SHIFT. FAMILY CALLED AND ASKED TO SPEAK WITH UROGYNECOLOGY PHYSICIAN REGARDING KIDNEY FUNCTION - DOES NOT WANT PT TO GET DIALYSIS. MD AWARE OF REQUEST. BED IN LOWEST AND LOCKED POSITION. CALL LIGHT WITHIN REACH. WILL ENDORSE TO RADIO FREQUENCY DESIGN ENGINEER NURSE.
--- NOTE | 2020-11-30 19:10 | NUR ---
RN NOTES: RECEIVED AWAKE ON BED, A/OX4,SINGAPOREAN SPEAKING ONLY, ORIENTED TO UNIT AND STAFF, CONTINENT BOTH B/B, RIGHT FOOT ULCER KEPT ELEVATED, DRESSING DRY AND INTACT, LAC G#18 PATENT, WITH IVF OF D5NS AT 60 ML/HR ON GOING VIA INFUSION PUMP, NON LABORED BREATHING BREATHING SPONTANEOUSLY IN ROOM AIR, NO PAIN OR DISCOMFORT, FALL,SAFETY AND ASPIRATION PRECAUTION OBSERVED, BED LOW AND LOCKED, CALL LIGHT KEPT WITH EASY REACH.
[2020-11-30 20:00] VITALS: BP 156/60
[2020-11-30] MEDS: IV D5/ 0.9% NACL 1,000 ML IV PRN (20:52)
--- NOTE | 2020-11-30 21:03 | NUR ---
RN NOTES: IVF CONSUMED, STARTED NEW BOTTLE OF D5NS AT 60 ML/HR VIA INFUSION PUMP, DUE IV/ATB AND ANTICOAGULANT GIVEN.
[2020-11-30] MEDS: MIRTAZAPINE 15 MG TABLET PO SCH (21:25)
[2020-11-30] MEDS: ATORVASTATIN 10 MG TABLET PO SCH (21:26)
[2020-11-30] MEDS: LATANOPROST EYE DROP 0.005% 2.5 ML BOTTLE EACHEYE SCH (21:58)
[2020-11-30] MEDS: INSULIN GLARGINE, 100 UNIT/ML CARTRIDGE SQ SCH (22:00)
[2020-11-30] MEDS ORDERED: CEFTRIAXONE 1 G VIAL ONE (22:30)
[2020-11-30] MEDS: CEFTRIAXONE 1 G in IV D5W 50 ML IV SCH (22:31)
--- NOTE | 2020-11-30 22:31 | NUR ---
RN NOTES: DUE FOR ROCEPHINE 1 GRAM, NO STOCK IN HIS MEDICATION BOX, CN/RN NOTIFIED, CN PULLED OUT MEDICATION IN THE OMNICELL, UNABLE TO SCAN, MANUALLY ENTERED THE BAR CODE.IV ANTIBIOTIC GIVEN.
[2020-12-01] MEDS: BLOOD SUGAR DIAGNOSTIC 1 EACH STRIP IN SCH ×5 (00:16→23:21)
[2020-12-01] MEDS: INSULIN REGULAR, HUMAN 100 UNIT/ML 3 ML VIAL SQ PRN ×4 (00:17→23:13)
--- NOTE | 2020-12-01 00:33 | NUR ---
RN NOTES: 0000 BLOOD SUGAR CHECKED-200, INSULIN GIVEN PER SCALE, WILL CONTINUE TO MONITOR HYPER/HYPOGLYCEMIA. ASLEEP IN BETWEEN.
[2020-12-01] MEDS: METRONIDAZOLE 500MG/ NS 100ML 500 MG in PREMIX 1 EA IV SCH ×3 (04:35→22:00)
[2020-12-01 06:33] LABS: BASOPHILS # (AUTO) 0.1 /CMM (0.0-0.2); BASOPHILS % (AUTO) 0.7 % (0.0-2.0); EOSINOPHILS % (AUTO) 0.8 % (0.0-6.0); HEMATOCRIT 26 % (39-51); HEMOGLOBIN 8.6 g/dL (13.5-17.5); LYMPHOCYTES # (AUTO) 1.7 /CMM (0.8-4.8); MEAN CORPUSCULAR HGB CONC 34 g/dl (31.0-36.0); MEAN CORPUSCULAR VOLUME 87 fL (80-96); MONOCYTES # (AUTO) 1.1 /CMM (0.1-1.30); MONOCYTES % (AUTO) 9.6 % (2.0-12.0); NEUTROPHILS # (AUTO) 8.6 /CMM (1.8-8.9); NEUTROPHILS % (AUTO) 73.9 % (43.0-81.0); PLATELET COUNT (AUTO) 536 /CMM (150-450); RED BLOOD CELL COUNT(AUTO) 2.94 MIL/uL (4.5-6.0); WHITE BLOOD COUNT (AUTO) 11.6 K/uL (4.3-11.0)
[2020-12-01 06:46] LABS: CALCIUM, SERUM 7.8 mg/dL (8.5-10.1); MAGNESIUM 1.9 mg/dL (1.8-2.4); PHOSPHORUS 6.9 mg/dL (2.5-4.9)
[2020-12-01 06:53] LABS: CREATININE 8.8 mg/dL (0.6-1.3)
--- NOTE | 2020-12-01 07:25 | NUR ---
MS NR OPENING NOTE RECEIVED PATIENT IN BED. A/O X 4. ON ROOM AIR, TOLERATING WELL. NO SOB NOTED. IN NO APPARENT DISTRESS. IV ACCESS ON L AC #18, INTACT. SAFETY MEASURES MAINTAINED. BED IN LOWEST POSITION, BRAKES LOCKED, SIDE RAILS UP X2. CALL LIGHT WITHIN REACH. WILL CONTINUE PLAN OF CARE.
--- NOTE | 2020-12-01 07:52 | NUR ---
RN NOTES: ABLE TO SLEEP AND REST, NO COMPLAINTS IN THE NIGHT, IVF CONTINUE,BLOOD SUGAR-136, INSULIN GIVEN PER SCALE, DAUGHTER CALLED IN THE MORNING AND WOULD LIKE TO SPEAK WITH SUEDING AND BUFFING MACHINE OPERATOR,ENDORSED FOR CONTINUITY OF CARE.
[2020-12-01 08:00] VITALS: BP 174/73
[2020-12-01] MEDS: CHOLECALCIFEROL 1,000 UNIT TABLET (VIT D3) PO SCH (08:57)
[2020-12-01] MEDS: CYANOCOBALAMIN 500 MCG TABLET PO SCH (08:57)
[2020-12-01] MEDS: CLOPIDOGREL BISULFATE 75 MG TABLET PO SCH (08:57)
[2020-12-01] MEDS: PANTOPRAZOLE 40 MG TABLET.DR PO SCH (08:58)
[2020-12-01] MEDS: FENOFIBRATE NANOCRYS (145 MG) 145 MG TABLET PO SCH (08:58)
[2020-12-01] MEDS: TIMOLOL 0.5% SOLN OPHTH 5 ML BOTTLE EACHEYE SCH ×2 (08:59→16:07)
[2020-12-01] MEDS: BRIMONIDINE TARTRATE OPHT SOLN 5 ML BOTTLE EACHEYE SCH ×2 (08:59→16:07)
[2020-12-01] MEDS: HEPARIN SODIUM, PORCINE 5000 UNITS/1 ML VIAL SQ SCH ×2 (09:00→21:38)
--- NOTE | 2020-12-01 11:38 | NUR ---
MS RN NOTE BS OF 79. NO INSULIN COVERAGE. GAVE OJ.
[2020-12-01] MEDS ORDERED: EPOETIN ALFA (10,000 UNIT) 10,000 UNIT/ML VIAL SQ ONE (15:00)
[2020-12-01 16:00] VITALS: BP 143/86
[2020-12-01] MEDS: IV D5/ 0.9% NACL 1,000 ML IV PRN (16:05)
[2020-12-01] MEDS: SEVELAMER CARBONATE 800 MG POWD.PACK GT SCH (18:02)
--- NOTE | 2020-12-01 18:37 | NUR ---
MS NR CLOSING NOTE PATIENT RESTING IN BED. A/O X 4. ON ROOM AIR, TOLERATING WELL. NO SOB NOTED. NO S/S OF RESPIRATORY DISTRESS. PATIENT HAS BEEN MORE COOPERATIVE WITH THE TREATMENT. NOTED INCREASED OF APPETITE. IV ACCESS ON L AC #18, INTACT AND PATENT, D5NS RUNNING @ 60 ML/HR. ALL NEEDS HAVE BEEN MET. WOUND TX ORDERED. ROUTINE MEDS WERE GIVEN ORDERED. SAFETY MEASURES MAINTAINED. BED IN LOWEST POSITION, BRAKES LOCKED, SIDE RAILS UP X2. CALL LIGHT WITHIN REACH. WILL ENDORSE PLAN OF CARE TO ONCOMING SHIFT.
[2020-12-01 20:00] VITALS: BP 105/60
--- NOTE | 2020-12-01 20:12 | NUR ---
MS RN OPENING NOTES PATIENT IN BED, A/OX4, ABLE TO MAKE NEEDS KNOWN. ON ROOM AIR, TOLERATING WELL WITH NO SOB. DENIES PAIN OR DISCOMFORT AT THIS TIME. LAC IV #18G; INFUSING D5 1/2 NS @ 60ML/HR PATENT AND INTACT. SAFETY PRECAUTIONS IN PLACE: BED IN LOWEST LOCKED POSITION; SIDERAILS UPX2; CALL LIGHT WITHIN REACH. BED ALARMS ON. PATIENT MEDICALLY STABLE.
[2020-12-01] MEDS: ATORVASTATIN 10 MG TABLET PO SCH (21:35)
[2020-12-01] MEDS: LATANOPROST EYE DROP 0.005% 2.5 ML BOTTLE EACHEYE SCH (21:36)
[2020-12-01] MEDS: CEFTRIAXONE 1 G in IV D5W 50 ML IV SCH ×2 (21:42→23:12)
[2020-12-01] MEDS: MIRTAZAPINE 15 MG TABLET PO SCH (22:17)
[2020-12-01] MEDS: INSULIN GLARGINE, 100 UNIT/ML CARTRIDGE SQ SCH (23:18)
[2020-12-02] MEDS: METRONIDAZOLE 500MG/ NS 100ML 500 MG in PREMIX 1 EA IV SCH ×3 (06:14→21:09)
[2020-12-02] MEDS: BLOOD SUGAR DIAGNOSTIC 1 EACH STRIP IN SCH ×3 (06:15→16:49)
[2020-12-02] MEDS: INSULIN REGULAR, HUMAN 100 UNIT/ML 3 ML VIAL SQ PRN ×3 (06:32→16:47)
[2020-12-02] MEDS: PANTOPRAZOLE 40 MG TABLET.DR PO SCH (06:34)
[2020-12-02 06:36] LABS: BASOPHILS # (AUTO) 0.1 /CMM (0.0-0.2); BASOPHILS % (AUTO) 0.4 % (0.0-2.0); EOSINOPHILS % (AUTO) 0.4 % (0.0-6.0); HEMATOCRIT 26 % (39-51); HEMOGLOBIN 8.4 g/dL (13.5-17.5); LYMPHOCYTES # (AUTO) 1.8 /CMM (0.8-4.8); LYMPHOCYTES % (AUTO) 15.6 % (20.0-44.0); MEAN CORPUSCULAR HGB CONC 33 g/dl (31.0-36.0); MEAN CORPUSCULAR VOLUME 89 fL (80-96); NEUTROPHILS # (AUTO) 8.6 /CMM (1.8-8.9); NEUTROPHILS % (AUTO) 74.6 % (43.0-81.0); PLATELET COUNT (AUTO) 499 /CMM (150-450); RED BLOOD CELL COUNT(AUTO) 2.87 MIL/uL (4.5-6.0); WHITE BLOOD COUNT (AUTO) 11.5 K/uL (4.3-11.0)
--- NOTE | 2020-12-02 06:59 | NUR ---
MS RN CLOSING NOTES PATIENT IN BED, A/OX4, ABLE TO MAKE NEEDS KNOWN. ON ROOM AIR, TOLERATING WELL WITH NO SOB. DENIES PAIN OR DISCOMFORT AT THIS TIME. LAC IV #18G; INFUSING D5 1/2 NS @ 60ML/HR PATENT AND INTACT. SAFETY PRECAUTIONS IN PLACE: BED IN LOWEST LOCKED POSITION; SIDERAILS UPX2; CALL LIGHT WITHIN REACH. BED ALARMS ON. PATIENT MEDICALLY STABLE.
--- NOTE | 2020-12-02 07:40 | NUR ---
MS/RN Opening note Patient received from shift engineer. Sleeping soundly at this time, appears comfortable, in no pain or distress. Heplock to left AC flushing well with normal saline, no signs of infiltration seen. For surgery tomorrow with Dr Welch for angiogram. No orders as of this time for consent. Safety measures in place, call light within reach. Will continue to monitor and ensure safety.
[2020-12-02 07:55] VITALS: BP 151/63
[2020-12-02 08:00] VITALS: BP 151/63
[2020-12-02 08:15] LABS: CALCIUM, SERUM 7.9 mg/dL (8.5-10.1); MAGNESIUM 1.8 mg/dL (1.8-2.4); PHOSPHORUS 6.6 mg/dL (2.5-4.9); POTASSIUM 3.9 mmol/L (3.5-5.1)
[2020-12-02] MEDS: FENOFIBRATE NANOCRYS (145 MG) 145 MG TABLET PO SCH (08:17)
[2020-12-02] MEDS: CHOLECALCIFEROL 1,000 UNIT TABLET (VIT D3) PO SCH (08:18)
[2020-12-02] MEDS: CLOPIDOGREL BISULFATE 75 MG TABLET PO SCH (08:18)
[2020-12-02] MEDS: CYANOCOBALAMIN 500 MCG TABLET PO SCH (08:18)
[2020-12-02] MEDS: SEVELAMER CARBONATE 800 MG POWD.PACK GT SCH ×3 (08:18→16:45)
[2020-12-02 08:25] LABS: CREATININE 8.7 mg/dL (0.6-1.3)
[2020-12-02] MEDS: HEPARIN SODIUM, PORCINE 5000 UNITS/1 ML VIAL SQ SCH ×2 (08:25→21:16)
[2020-12-02] MEDS: BRIMONIDINE TARTRATE OPHT SOLN 5 ML BOTTLE EACHEYE SCH ×2 (08:27→16:46)
[2020-12-02] MEDS: TIMOLOL 0.5% SOLN OPHTH 5 ML BOTTLE EACHEYE SCH ×2 (08:27→16:46)
--- NOTE | 2020-12-02 10:08 | NUR ---
MS/RN S/B Dr Parker Seen by Dr Parker - consent to be obtained for temporary hemodialysis catheter to be placed and for hemodialysis. Daughter Alessia called, consent witnessed by two RN''s and placed in front of chart.
--- NOTE | 2020-12-02 11:00 | NUR ---
MS/RN S/B Vanessa Sharpe Seen by SCRAP HOOKER - patient to be NPO from midnight for angiogram tomorrow with Dr Welch.
[2020-12-02] MEDS: IV D5/ 0.9% NACL 1,000 ML IV PRN (12:10)
--- NOTE | 2020-12-02 13:05 | NUR ---
MS/RN S/B Ra Baez Seen by Ra Baez - temporary permcath pplaced in right groin for hemodialysis. Catheter may be used now.
[2020-12-02 16:00] VITALS: BP 150/58
--- NOTE | 2020-12-02 18:35 | NUR ---
MS/RN New orders Telephone order from Dr Welch - consent patient for aortogram with bilateral lower extremity runoff, possible stent placement and tunneled HD catheter placement.
--- NOTE | 2020-12-02 19:30 | NUR ---
MS/RN OPENING NOTES RECEIVED PATIENT RESTING IN BED. PATIENT IS ALERT AND ORIENTED X 4. PATIENTS BREATHING IS EVEN AND UNLABORED. PATIENT SHOWS NO SIGNS OF SOB OR RESPIRATORY DISTRESS. PATIENT STATES NO PAIN AT THIS TIME. IV ACCESS LEFT AC INTACT FLUSHING WELL RUNNING S5NS AT 60 CC/HR. SAFETY MEASURES ARE IN PLACE, BED IS LOCKED AND PLACED IN THE LOW POSITION, SIDE RAILS UP X 2, CALL LIGHT IS WITHIN REACH. WILL CONTINUE TO MONITOR THROUGH OUT SHIFT.
[2020-12-02 20:00] VITALS: BP 137/70
[2020-12-02] MEDS: MIRTAZAPINE 15 MG TABLET PO SCH (21:14)
[2020-12-02] MEDS: ATORVASTATIN 10 MG TABLET PO SCH (21:14)
[2020-12-02] MEDS: LATANOPROST EYE DROP 0.005% 2.5 ML BOTTLE EACHEYE SCH (21:18)
[2020-12-02] MEDS: CEFTRIAXONE 1 G in IV D5W 50 ML IV SCH (22:25)
[2020-12-02] MEDS: INSULIN GLARGINE, 100 UNIT/ML CARTRIDGE SQ SCH (22:35)
[2020-12-03] VITALS (18 sets, daily range): BP systolic 93–187; BP diastolic 35–78
[2020-12-03] MEDS: BLOOD SUGAR DIAGNOSTIC 1 EACH STRIP IN SCH ×5 (00:52→21:48)
[2020-12-03] MEDS: METRONIDAZOLE 500MG/ NS 100ML 500 MG in PREMIX 1 EA IV SCH ×3 (04:42→20:58)
[2020-12-03] MEDS: IV D5/ 0.9% NACL 1,000 ML IV PRN ×2 (04:48→15:42)
[2020-12-03 06:45] LABS: BASOPHILS # (AUTO) 0.1 /CMM (0.0-0.2); BASOPHILS % (AUTO) 1.1 % (0.0-2.0); EOSINOPHILS % (AUTO) 0.6 % (0.0-6.0); HEMATOCRIT 22 % (39-51); HEMOGLOBIN 7.3 g/dL (13.5-17.5); LYMPHOCYTES # (AUTO) 1.7 /CMM (0.8-4.8); LYMPHOCYTES % (AUTO) 18.8 % (20.0-44.0); MEAN CORPUSCULAR HGB CONC 34 g/dl (31.0-36.0); MEAN CORPUSCULAR VOLUME 88 fL (80-96); MONOCYTES % (AUTO) 11.2 % (2.0-12.0); NEUTROPHILS # (AUTO) 6.4 /CMM (1.8-8.9); NEUTROPHILS % (AUTO) 68.3 % (43.0-81.0); PLATELET COUNT (AUTO) 440 /CMM (150-450); RED BLOOD CELL COUNT(AUTO) 2.46 MIL/uL (4.5-6.0); WHITE BLOOD COUNT (AUTO) 9.3 K/uL (4.3-11.0)
--- NOTE | 2020-12-03 06:45 | NUR ---
MS/RN CLOSING NOTES PATIENT RESTING IN BED. PATIENT IS ALERT AND ORIENTED X 4. PATIENTS BREATHING IS EVEN AND UNLABORED. PATIENT SHOWS NO SIGNS OF SOB OR RESPIRATORY DISTRESS. PATIENT STATES NO PAIN AT THIS TIME. IV ACCESS LEFT AC INTACT FLUSHING WELL RUNNING D5NS AT 60 CC/HR. PATIENT NPO S/P MIDNIGHT. ALL NEEDS HAVE BEEN MET DURING SHIFT. SAFETY MEASURES ARE IN PLACE, BED IS LOCKED AND PLACED IN THE LOW POSITION, SIDE RAILS UP X 2, CALL LIGHT IS WITHIN REACH. WILL CONTINUE TO MONITOR THROUGH OUT SHIFT.
[2020-12-03 07:01] LABS: CALCIUM, SERUM 7.4 mg/dL (8.5-10.1); CREATININE 7.3 mg/dL (0.6-1.3); MAGNESIUM 1.7 mg/dL (1.8-2.4); PHOSPHORUS 5.3 mg/dL (2.5-4.9); POTASSIUM 3.7 mmol/L (3.5-5.1)
--- NOTE | 2020-12-03 07:06 | NUR ---
WILDLIFE ECOLOGY PROFESSOR OPENING NOTE RECEIVED PT AWAKE IN BED AT THIS TIME. AOX3. GABONESE SPEAKING. NO SOB NOTED, NO S/O ANY ACUTE DISTRESS NOTED, NO C/O PAIN AT THIS TIME. IV ACCESS NOTED IN LAC G#18, INTACT, PATENT AND FLUSHING WELL. PT NOTED WITH RIGHT GROIN HD CATH, BRUIT AUSCULTATED, THRILL FELT. ASPIRATION, FALL AND SAFETY PRECAUTIONS IN PLACE AND MAINTAINED AT ALL TIME. BED IN LOWEST LOCKED POSITION, CALL LIGHT AND TABLE WITHIN REACH, HOB ELEVATED, SIDE RAILS UP. WILL CONTINUE TO MONITOR
[2020-12-03] MEDS: SEVELAMER CARBONATE 800 MG POWD.PACK GT SCH ×3 (08:47→18:00)
[2020-12-03] MEDS: FENOFIBRATE NANOCRYS (145 MG) 145 MG TABLET PO SCH (08:47)
[2020-12-03] MEDS: CYANOCOBALAMIN 500 MCG TABLET PO SCH (08:48)
[2020-12-03] MEDS: PANTOPRAZOLE 40 MG TABLET.DR PO SCH (08:49)
[2020-12-03] MEDS: CHOLECALCIFEROL 1,000 UNIT TABLET (VIT D3) PO SCH (08:49)
[2020-12-03] MEDS: CLOPIDOGREL BISULFATE 75 MG TABLET PO SCH (08:49)
[2020-12-03] MEDS: TIMOLOL 0.5% SOLN OPHTH 5 ML BOTTLE EACHEYE SCH ×2 (08:56→18:06)
[2020-12-03] MEDS: BRIMONIDINE TARTRATE OPHT SOLN 5 ML BOTTLE EACHEYE SCH ×2 (08:57→18:07)
[2020-12-03] MEDS: HEPARIN SODIUM, PORCINE 5000 UNITS/1 ML VIAL SQ SCH ×2 (09:00→21:00)
[2020-12-03] MEDS ORDERED: IODIXANOL 150 ML IV ONE (11:12)
[2020-12-03] MEDS ORDERED: LIDOCAINE HCL/PF 1% 30 ML SDV ONE (11:13)
[2020-12-03] MEDS ORDERED: IV NS 0.9% 1,000 ML ONE (11:14)
[2020-12-03] MEDS ORDERED: MIDAZOLAM HCL 2 MG/2ML VIAL ONE (11:17)
[2020-12-03] MEDS ORDERED: FENTANYL PF 100MCG/2ML AMPUL ONE (11:17)
[2020-12-03] MEDS ORDERED: IODIXANOL 320MG/ML 0 ML IV ONE (12:18)
[2020-12-03] MEDS ORDERED: HEPARIN SODIUM, PORCINE 1,000 UNIT/ML VIAL ONE (12:19)
[2020-12-03] MEDS ORDERED: HEPARIN SODIUM, PORCINE 5000 UNITS/1 ML VIAL ONE (12:19)
[2020-12-03] MEDS ORDERED: CEFAZOLIN 1 GM VIAL ONE (12:27)
[2020-12-03] MEDS ORDERED: SECONDARY IV SET 1 EA INFUS.SET MC ONE (12:30)
--- NOTE | 2020-12-03 13:38 | NUR ---
PT ARRIVED IN ICU FROM ABATTOIR MANAGER FOLLOWING A POPLITEAL BALLOONING. RIGHT PEDAL PULSE WEAK WITH DOPPLER. PT SLEEPY BUT AWAKENS WITHOUT DIFFICULTY, OX4. PT ON BEDREST UNTIL 151. Addendum: 12/03/20 at 1856 by PARI QUACH RN LEFT GROIN CATH SITE SOFT, DRESSING CLEAN, DRY AND INTACT
[2020-12-03] MEDS ORDERED: HYDROCODONE/APAP 5/325MG TABLET PO PRN (14:30)
[2020-12-03 15:08] LABS: BASOPHILS # (AUTO) 0.1 /CMM (0.0-0.2); BASOPHILS % (AUTO) 0.9 % (0.0-2.0); EOSINOPHILS % (AUTO) 0.3 % (0.0-6.0); HEMATOCRIT 24 % (39-51); HEMOGLOBIN 7.8 g/dL (13.5-17.5); LYMPHOCYTES # (AUTO) 1.9 /CMM (0.8-4.8); LYMPHOCYTES % (AUTO) 14.6 % (20.0-44.0); MEAN CORPUSCULAR HGB CONC 33 g/dl (31.0-36.0); MEAN CORPUSCULAR VOLUME 88 fL (80-96); MONOCYTES # (AUTO) 1.6 /CMM (0.1-1.30); MONOCYTES % (AUTO) 11.9 % (2.0-12.0); NEUTROPHILS # (AUTO) 9.5 /CMM (1.8-8.9); NEUTROPHILS % (AUTO) 72.3 % (43.0-81.0); PLATELET COUNT (AUTO) 463 /CMM (150-450); RED BLOOD CELL COUNT(AUTO) 2.72 MIL/uL (4.5-6.0); WHITE BLOOD COUNT (AUTO) 13.2 K/uL (4.3-11.0)
--- NOTE | 2020-12-03 15:27 | NUR ---
PT'S BELONGINGS, MEDICATIONS AND BEDSIDE REPORT GIVEN TO KELECHI ENGLISH @ICU FOR JUAN MANUEL.
[2020-12-03] MEDS: ASPIRIN 81 MG TAB.CHEW PO SCH (15:41)
[2020-12-03 15:54] LABS: BILIRUBIN,TOTAL 0.2 mg/dL (0.2-1.0); CALCIUM, SERUM 8.1 mg/dL (8.5-10.1); POTASSIUM 3.9 mmol/L (3.5-5.1); TOTAL PROTEIN, SERUM 6.3 g/dL (6.4-8.2)
[2020-12-03 15:57] LABS: CREATININE 7.5 mg/dL (0.6-1.3)
[2020-12-03 15:59] LABS: ALBUMIN 0.9 g/dL (3.4-5.0)
[2020-12-03 16:49] LABS: EOSINOPHILS % (MANUAL) 3 % (0-4); LYMPHOCYTES % (MANUAL) 10 % (16-48); MONOCYTES % (MANUAL) 15 % (0-11.0); NEUTROPHILS % (MANUAL) 72 (42-76)
[2020-12-03] MEDS ORDERED: DEXTROSE 50%-WATER 50 ML DISP.SYRIN IV PRN (17:30)
--- NOTE | 2020-12-03 18:15 | NUR ---
PT'S BLOOD GLUCOSE WAS 57 AT 1752, PT GIVEN D50 AND PATIENT DRANK GRAPE JUICE. FOLLOW UP GLUCOSE WAS 156.
--- NOTE | 2020-12-03 18:58 | NUR ---
END OF SHIFT NOTE: PT WAS OFF BEDREST AT 1515. PER PREVIOUS NOTE PT'S BLOOD GLUCOSE WAS LOW, PT DOES NOT WANT TO EAT DINNER. RN ENCOURGED PT TO DRINK GRAPE JUICE AND EAT HIS DUTCH FOOD CAKE, PT COMPLIED. RIGHT PEDAL PULSE WEAK PER DOPPLER. CONSENT FOR RIGHT FOOT DEBRIDEMENT DONE AND ON CHART. PT CHECKED ON HOURLY AND PRN BY NURSING STAFF.
[2020-12-03] MEDS: MIRTAZAPINE 15 MG TABLET PO SCH (21:01)
[2020-12-03] MEDS: ATORVASTATIN 10 MG TABLET PO SCH (21:01)
--- NOTE | 2020-12-03 21:05 | NUR ---
HEPARIN HELD DUE TO PATIENT GOING FOR DEBRIDEMENT TOMORROW AT 0730
[2020-12-03] MEDS: LATANOPROST EYE DROP 0.005% 2.5 ML BOTTLE EACHEYE SCH (21:41)
[2020-12-03] MEDS: INSULIN GLARGINE, 100 UNIT/ML CARTRIDGE SQ SCH (21:48)
[2020-12-03] MEDS: CEFTRIAXONE 1 G in IV D5W 50 ML IV SCH (21:57)
--- NOTE | 2020-12-03 22:24 | NUR ---
NOTIFIED IGNITER ASSEMBLER ANGELA SARKAR ABOUT PATIENTS ELEVATD SBP BETWEEN 170-190. MELLO ORDERED HYDRALAZINE 10MG IVP Q6HR FOR SBP >150
[2020-12-03] MEDS ORDERED: hydrALAZINE HCL IV 20 MG VIAL IV PRN (22:30)
[2020-12-03] MEDS: INSULIN REGULAR, HUMAN 100 UNIT/ML 3 ML VIAL SQ PRN (23:35)
--- NOTE | 2020-12-03 23:42 | NUR ---
MELLO ORDER TO HOLD LANTUS AND GIVE HUMULIN 4UNITS. AWARE OF PROCEDURE TOMORROW AND HOW PATIENT WILL BE NPO AT 0000. OK TO GIVE HUMULIN SINCE PATIENT IS ON D5 1/2NS.
[2020-12-04] VITALS (22 sets, daily range): BP systolic 92–145; BP diastolic 38–73
[2020-12-04 04:23] LABS: BASOPHILS # (AUTO) 0.1 /CMM (0.0-0.2); BASOPHILS % (AUTO) 0.9 % (0.0-2.0); EOSINOPHILS % (AUTO) 0.5 % (0.0-6.0); HEMATOCRIT 22 % (39-51); HEMOGLOBIN 7.5 g/dL (13.5-17.5); LYMPHOCYTES # (AUTO) 1.5 /CMM (0.8-4.8); LYMPHOCYTES % (AUTO) 17.3 % (20.0-44.0); MEAN CORPUSCULAR HGB CONC 34 g/dl (31.0-36.0); MEAN CORPUSCULAR VOLUME 89 fL (80-96); MONOCYTES # (AUTO) 1.4 /CMM (0.1-1.30); MONOCYTES % (AUTO) 15.9 % (2.0-12.0); NEUTROPHILS # (AUTO) 5.8 /CMM (1.8-8.9); NEUTROPHILS % (AUTO) 65.4 % (43.0-81.0); PLATELET COUNT (AUTO) 383 /CMM (150-450); RED BLOOD CELL COUNT(AUTO) 2.52 MIL/uL (4.5-6.0); WHITE BLOOD COUNT (AUTO) 8.9 K/uL (4.3-11.0)
[2020-12-04 04:41] LABS: CALCIUM, SERUM 7.5 mg/dL (8.5-10.1); MAGNESIUM 1.7 mg/dL (1.8-2.4)
[2020-12-04 04:48] LABS: CREATININE 7.6 mg/dL (0.6-1.3)
[2020-12-04] MEDS: METRONIDAZOLE 500MG/ NS 100ML 500 MG in PREMIX 1 EA IV SCH ×3 (05:17→21:08)
[2020-12-04] MEDS: INSULIN REGULAR, HUMAN 100 UNIT/ML 3 ML VIAL SQ PRN ×2 (06:40→23:04)
[2020-12-04] MEDS: BLOOD SUGAR DIAGNOSTIC 1 EACH STRIP IN SCH ×4 (06:43→23:03)
[2020-12-04] MEDS ORDERED: BUPIVACAINE 0.5 % PF 150 MG/30 ML VIAL ONE (06:46)
[2020-12-04] MEDS ORDERED: LIDOCAINE 1% INJ 50 ML MDV IJ ONE (06:46)
[2020-12-04] MEDS ORDERED: ANESTHESIA TRAY IN PYXIS 1 EA TRAY MC ONE (06:46)
[2020-12-04] MEDS ORDERED: BACITRACIN 50000 UNITS/VIAL ONE (07:00)
[2020-12-04] MEDS ORDERED: VANCOMYCIN 1 GM VIAL ONE (07:00)
--- NOTE | 2020-12-04 07:15 | NUR ---
BODY MAKER MACHINE SETTER NOTES REPORT RECEIVED FROM BRYAN LORENZ , PT WAS TRANSFERRED TO OR FOR WOUND DEBRIDEMENT , UNABLE TO ASSESS ,
[2020-12-04] MEDS: PANTOPRAZOLE 40 MG TABLET.DR PO SCH (07:30)
[2020-12-04] MEDS: SEVELAMER CARBONATE 800 MG POWD.PACK GT SCH ×3 (08:00→17:12)
[2020-12-04] MEDS ORDERED: CLOPIDOGREL BISULFATE 75 MG TABLET PO SCH (09:00)
[2020-12-04] MEDS: CLOPIDOGREL BISULFATE 75 MG TABLET PO SCH (09:00)
[2020-12-04] MEDS: ASPIRIN 81 MG TAB.CHEW PO SCH (09:00)
[2020-12-04] MEDS: CYANOCOBALAMIN 500 MCG TABLET PO SCH (09:00)
[2020-12-04] MEDS: CHOLECALCIFEROL 1,000 UNIT TABLET (VIT D3) PO SCH (09:00)
[2020-12-04] MEDS: FENOFIBRATE NANOCRYS (145 MG) 145 MG TABLET PO SCH (09:00)
[2020-12-04] MEDS: BRIMONIDINE TARTRATE OPHT SOLN 5 ML BOTTLE EACHEYE SCH ×2 (09:00→17:12)
[2020-12-04] MEDS: TIMOLOL 0.5% SOLN OPHTH 5 ML BOTTLE EACHEYE SCH ×2 (09:00→17:12)
--- NOTE | 2020-12-04 09:00 | NUR ---
SLASHER MACHINE OPERATOR NOTES DR LLANES AT BEDSIDE , NOTIFIED PT IS AT OR FOR RIGHT FOOT DEBRIDEMENT , NOTIFIED REGARDING LABS AND MAG OF 1.7 , PER MD HE WILL TAKE A LOOK AT IT .
--- NOTE | 2020-12-04 09:22 | NUR ---
CNA LTC NOTES RECEIVED PATIENT S/P RIGHT FOOD DEBRDIEMENT FROM OR , POST OP ORDERS CARRIED OUT , ATTACHED PT TO MONITOR , SR 85 ON BEDSIDE MONITOR , VSS , AFEBRILE , AOX3 BUT DROWSY , RIGHT FOOD DRESSING CLEAN DRY AND INTACT ELEVATED WITH 3 PILLOWS ORDERED , IV OF L AC # 8 PATENT AND INTACT WITH D5 1/2 NS @ 60ML/HR , ALL NEEDS ATTENDED , WILL CONTINUE TO MONITOR ,.
--- NOTE | 2020-12-04 10:19 | NUR ---
WOUND CARE: POSTOP ORDERS CLARIFIED AND DISCUSSED WITH NURSING STAFF. ALL SKIN PROTECTION MEASURES IN PLACE. DPM/MD IN AGREEMENT WITH PLAN OF CARE.
[2020-12-04] MEDS: IV D5/ 0.9% NACL 1,000 ML IV PRN (11:57)
--- NOTE | 2020-12-04 16:45 | NUR ---
NUCLEAR EQUIPMENT OPERATOR NOTES SEEN AND EVALUATED BY ORBITREAD OPERATOR CARLOS , DISCUSSED LABS , PT S/P RIGHT FOOT DEBRIDEMENT , STABLE AT THIS TIME ,AFEBRILE , DRESSINGS CLEAN DRY AND INTACT , NOTIFIED THAT DR LLANES IS AWARE REGARDING MAG OF 1.7 , AND F/U REGARDING PSYCH CONSULT PT IS WITHDRAWN WITH POOR APPETITE ORBITREAD OPERATOR AWARE .
[2020-12-04] MEDS: LINEZOLID RTU BAG 600 MG in PREMIX 1 EA IV SCH ×2 (17:36→22:30)
--- NOTE | 2020-12-04 17:45 | NUR ---
ASPHALT ROLLER OPERATOR NOTES PT STABLE S/P HD 1 L OUT NOTED WITH STRIKE THRU BLEEDING AT RIGHT FOOT , DR HAYDEN NOTIFIED , PER MD JUST RE INFORCE DRESSING WITH KERLIX OR CASSI WRAP .
--- NOTE | 2020-12-04 18:00 | NUR ---
DRUG SAFETY SPECIALIST NOTES RIGHT FOOT DRESSING REINFORCED WITH CASSI WRAP AND KERLIX , ELEVATED WITH 3 PILLOWS ORDERED , WILL CONTINUE TO MONITOR
--- NOTE | 2020-12-04 19:08 | NUR ---
APPAREL SALES ASSOCIATE NOTES PATIENT STABLE AT THIS TIME , AOX3-4 SAMI SPEAKING NOT IN ACUTE DISTRESS , DENIES SOB AND DISCOMFORT AT THIS TI,E , , SR 75 ON BEDSIDE MONITOR , RIGHT FOOD DRESSING CLEAN DRY AND INTACT ELEVATED WITH 3 PILLOWS ORDERED , IV OF R HAND # 20 PATENT AND INTACT WITH D5 NS @ 60ML/HR AND NS @ TKO, ALL NEEDS ATTENDED , REPORT GIVEN TO JEREMIE FOR CONTINUITY OF CARE
--- NOTE | 2020-12-04 19:19 | NUR ---
DIRECTOR [place] OPENING NOTES: Rec'd pt in bed, A&Ox4, Kinyarwanda speaking. On room air O2 sat WNL. No resp distress noted at this time. SR on tele monitor. IV site on right hand #20 patent and flushed w/ D5NS infusing at 60ml/hr. Right groin Isidoro HD cath noted. Urinal at bedside. Right leg elevated w/ dressing intact. Safety measures in place. With orders to downgrade to telemetry, awaiting bed. Will continue to monitor.
--- NOTE | 2020-12-04 20:38 | NUR ---
COUNTERINTELLIGENCE/HUMINT SPECIALIST NOTE: Pt transferred to 304-1 via acls protocols in stable condition. Bedside report given to KELECHI Rg.
--- NOTE | 2020-12-04 20:59 | NUR ---
MS/TELE/RN RECEIVE PATIENT AT ABOUT 2030 FROM ICU BY BED. PATIENT WAS AWAKE, ALERT, ORIENTED, COMFORTABLE, NO C/O PAIN AT THIS TIME, NO SIGNS OF DISTRESS NOTED, PLACED CALL LIGHT IN REACH. WILL MONITOR.
[2020-12-04] MEDS: LATANOPROST EYE DROP 0.005% 2.5 ML BOTTLE EACHEYE SCH (23:02)
[2020-12-04] MEDS: ATORVASTATIN 10 MG TABLET PO SCH (23:02)
[2020-12-04] MEDS: INSULIN GLARGINE, 100 UNIT/ML CARTRIDGE SQ SCH (23:05)
[2020-12-05] VITALS (12 sets, daily range): BP systolic 98–145; BP diastolic 40–75
[2020-12-05] MEDS: CEFTRIAXONE 1 G in IV D5W 50 ML IV SCH ×2 (00:25→21:43)
--- NOTE | 2020-12-05 01:18 | NUR ---
MS/TELE/RN PATIENT IS SLEEPING AT THIS TIME, APPEAR COMFORTABLE NO SIGNS OF DISTRESS NOTED, CALL LIGHT IN REACH. WILL CONTINUE TO MONITOR.
[2020-12-05] MEDS: METRONIDAZOLE 500MG/ NS 100ML 500 MG in PREMIX 1 EA IV SCH (05:08)
[2020-12-05] MEDS: ACETAMINOPHEN 325 MG TABLET PO PRN (06:07)
--- NOTE | 2020-12-05 06:09 | NUR ---
MS/TELE/RN TEMP 100.4, TYLENOL 650 MG PO WAS GIVEN ORDERED, WILL MONITOR. ALL NEEDS ATTENDED AT THIS TIME, WILL CONTINUE TO MONITOR.
[2020-12-05] MEDS: INSULIN REGULAR, HUMAN 100 UNIT/ML 3 ML VIAL SQ PRN ×4 (06:33→21:46)
[2020-12-05] MEDS: BLOOD SUGAR DIAGNOSTIC 1 EACH STRIP IN SCH ×4 (06:37→21:44)
[2020-12-05 06:58] LABS: CREATININE 5.9 mg/dL (0.6-1.3); MAGNESIUM 1.6 mg/dL (1.8-2.4); PHOSPHORUS 4.6 mg/dL (2.5-4.9); POTASSIUM 3.9 mmol/L (3.5-5.1)
--- NOTE | 2020-12-05 07:20 | NUR ---
EDUCATION SITE MANAGER NOTES PATIENT IN BED ALERT ORIENTED X 4. NO ACUTE DISTRESS NOTED. BREATHING UNLABORED.DENIED ANY PAIN. IV ACCESS PATENT AND INTACT, NO REDNESS, NO SWELLING NOTED. DIALYSIS ACCESS INTACT WITH DRESSING. SAFETY MEASURES IN PLACE. CALL LIGHT WITHIN REACH. WILL CONTINUE TO MONITOR ACCORDINGLY
[2020-12-05] MEDS: PANTOPRAZOLE 40 MG TABLET.DR PO SCH (07:45)
[2020-12-05] MEDS: SEVELAMER CARBONATE 800 MG POWD.PACK GT SCH ×3 (08:32→18:17)
[2020-12-05] MEDS: FENOFIBRATE NANOCRYS (145 MG) 145 MG TABLET PO SCH (08:33)
[2020-12-05] MEDS: CHOLECALCIFEROL 1,000 UNIT TABLET (VIT D3) PO SCH (08:33)
[2020-12-05] MEDS: ASPIRIN 81 MG TAB.CHEW PO SCH (08:33)
[2020-12-05] MEDS: CYANOCOBALAMIN 500 MCG TABLET PO SCH (08:34)
[2020-12-05] MEDS: CLOPIDOGREL BISULFATE 75 MG TABLET PO SCH (08:34)
[2020-12-05] MEDS: TIMOLOL 0.5% SOLN OPHTH 5 ML BOTTLE EACHEYE SCH ×2 (08:40→17:52)
[2020-12-05] MEDS: BRIMONIDINE TARTRATE OPHT SOLN 5 ML BOTTLE EACHEYE SCH ×2 (08:41→17:52)
[2020-12-05] MEDS: IV D5/ 0.9% NACL 1,000 ML IV PRN ×2 (08:54→21:43)
[2020-12-05] MEDS: LINEZOLID RTU BAG 600 MG in PREMIX 1 EA IV SCH (08:55)
[2020-12-05 11:52] LABS: BASOPHILS # (AUTO) 0.1 /CMM (0.0-0.2); BASOPHILS % (AUTO) 0.7 % (0.0-2.0); EOSINOPHILS % (AUTO) 0.2 % (0.0-6.0); LYMPHOCYTES # (AUTO) 1.6 /CMM (0.8-4.8); LYMPHOCYTES % (AUTO) 17.7 % (20.0-44.0); MEAN CORPUSCULAR HGB CONC 33 g/dl (31.0-36.0); MEAN CORPUSCULAR VOLUME 89 fL (80-96); MONOCYTES # (AUTO) 1.4 /CMM (0.1-1.30); MONOCYTES % (AUTO) 15.2 % (2.0-12.0); NEUTROPHILS # (AUTO) 6.1 /CMM (1.8-8.9); NEUTROPHILS % (AUTO) 66.2 % (43.0-81.0); PLATELET COUNT (AUTO) 314 /CMM (150-450); WHITE BLOOD COUNT (AUTO) 9.2 K/uL (4.3-11.0)
[2020-12-05 11:53] LABS: RED BLOOD CELL COUNT(AUTO) 1.87 MIL/uL (4.5-6.0)
[2020-12-05 11:55] LABS: HEMATOCRIT 17 % (39-51); HEMOGLOBIN 5.5 g/dL (13.5-17.5)
--- NOTE | 2020-12-05 12:02 | NUR ---
PROJECT ANALYST NOTES RECEIVED CRITICAL LABORATORY RESULT HGB 5.5/ HCT 17 RELAYED TO DAKOTA GONZALEZ TOOL GRINDING TECHNICIAN, WITH NEW ORDER FOR 2 PRC , ORDER CLARIFIED AND READBACK WITH MD, NOTED AND CARRIED OUT. NO BLEEDING NOTED. VITAL SIGNS STABLE
--- NOTE | 2020-12-05 12:51 | NUR ---
SAP BOBJ DEVELOPER NOTES CLARIFIED WITH DAKOTA GONZALEZ NP REGARDING BLOOD TRANSFUSION WITH ORDER TRANSFUSION with HD, ORDER CLARIFIED AND READ BACK DAKOTA SHINE, NOTED AND CARRIED OUT
[2020-12-05] MEDS: METRONIDAZOLE 500 MG TABLET PO SCH ×2 (13:19→22:15)
[2020-12-05 13:33] LABS: BAND % (MANUAL) 1 % (0.0-5.0); LYMPHOCYTES % (MANUAL) 18 % (16-48); MONOCYTES % (MANUAL) 13 % (0-11.0); NEUTROPHILS % (MANUAL) 68 (42-76)
--- NOTE | 2020-12-05 14:15 | NUR ---
PUMP PRESS OPERATOR NOTES PATIENT SEEN AND EVALUATED BY DR WRIGHT , DRESSING CHANGED BY MD . PATIENT TOLERATED WELL.
--- NOTE | 2020-12-05 15:48 | NUR ---
COMPONENT OVERHAUL OPERATOR NOTES BLOOD TRANSFUSION STARTED , VITAL SIGNS STABLE. WILL CONTINUE TO MONITOR .
--- NOTE | 2020-12-05 16:18 | NUR ---
EPILEPSY PHYSICIAN NOTES BLOOD TRANSFUSION ON GOING , VITAL SIGNS REMAIN STABLE.NO ADVERSE REACTION OF BLOOD TRANSFUSION NOTED. WILL CONTINUE TO MONITOR .
--- NOTE | 2020-12-05 16:30 | NUR ---
ENVIRONMENTAL SERVICES ATTENDANT NOTES BLOOD TRANSFUSION ENDED GEIN WITH DIALYSIS , VITAL SIGNS REMAIN STABLE.NO ADVERSE REACTION OF BLOOD TRANSFUSION NOTED. WILL CONTINUE TO MONITOR .
--- NOTE | 2020-12-05 16:45 | NUR ---
ELEMENTARY CLASSROOM TEACHER NOTES 2ND UNIT BLOOD TRANSFUSION STARTED WITH DIALYSIS , VITAL SIGNS STABLE. WILL CONTINUE TO MONITOR .
--- NOTE | 2020-12-05 17:00 | NUR ---
ASBESTOS CEMENT SHEET SUPERVISOR NOTES BLOOD TRANSFUSION ON GOING , VITAL SIGNS STABLE. NO ADVERSE REACTION OF BLOOD TRANSFUSION NOTED. WILL CONTINUE TO MONITOR .
--- NOTE | 2020-12-05 17:30 | NUR ---
PROOF TECHNICIAN HELPER NOTES BLOOD TRANSFUSION ENDED Given WITH DIALYSIS , VITAL SIGNS REMAIN STABLE.NO ADVERSE REACTION OF BLOOD TRANSFUSION NOTED. WILL CONTINUE TO MONITOR .
--- NOTE | 2020-12-05 19:00 | NUR ---
GROUNDHAND NOTES PATIENT IN BED ALERT ORIENTED X 4. NO ACUTE DISTRESS NOTED. BREATHING UNLABORED.DENIED ANY PAIN. IV ACCESS PATENT AND INTACT, NO REDNESS, NO SWELLING NOTED. DIALYSIS ACCESS INTACT WITH DRESSING. SAFETY MEASURES IN PLACE. CALL LIGHT WITHIN REACH. WILL ENDORSE TO NIGHT NURSE FOR CONTINUITY OF CARE.
[2020-12-05] MEDS: LINEZOLID 600 MG TABLET PO SCH (21:43)
[2020-12-05] MEDS: ATORVASTATIN 10 MG TABLET PO SCH (21:43)
[2020-12-05] MEDS: LATANOPROST EYE DROP 0.005% 2.5 ML BOTTLE EACHEYE SCH (21:44)
[2020-12-05] MEDS: INSULIN GLARGINE, 100 UNIT/ML CARTRIDGE SQ SCH (21:47)
[2020-12-06] VITALS: BP 156/69
[2020-12-06 04:00] VITALS: BP 159/73
[2020-12-06] MEDS: METRONIDAZOLE 500 MG TABLET PO SCH ×3 (06:08→21:33)
[2020-12-06] MEDS: BLOOD SUGAR DIAGNOSTIC 1 EACH STRIP IN SCH ×4 (06:30→21:33)
[2020-12-06] MEDS: INSULIN REGULAR, HUMAN 100 UNIT/ML 3 ML VIAL SQ PRN ×2 (06:32→21:44)
--- NOTE | 2020-12-06 06:38 | NUR ---
MS/TELE/RN PATIENT IS AWAKE, C/O GAS PAIN, MAALOX 30 MLS PO WAS GIVEN ORDERED, NO DISTRESS NOTED, IVF INFUSING, ALL NEEDS ATTENDED AT THIS TIME, WILL CONTINUE TO MONITOR.
[2020-12-06 08:00] VITALS: BP 128/62
--- NOTE | 2020-12-06 08:04 | NUR ---
MS/RN OPENING NOTE RECEIVED PATIENT FROM PRODUCTION POSTING CLERK NURSE. PATIENT IS ASLEEP IN BED, EASILY WOKEN UP. A/O X4, YI SPEAKING. NO ACUTE DISTRESS NOTED. PATIENT ON ROOM AIR TOLERATING WELL, NO SOB NOTED, BREATHING EVEN NON LABORED. SAFETY MEASURE IN PLACE, BED LOCKED AND IN LOWEST POSITION, CALL LIGHT WITHIN REACH. WILL CONTINUE TO MONITOR AND ENSURE SAFETY.
[2020-12-06] MEDS: ASPIRIN 81 MG TAB.CHEW PO SCH (08:50)
[2020-12-06] MEDS: LINEZOLID 600 MG TABLET PO SCH ×2 (08:50→21:33)
[2020-12-06] MEDS: SEVELAMER CARBONATE 800 MG POWD.PACK GT SCH ×3 (08:50→17:49)
[2020-12-06] MEDS: PANTOPRAZOLE 40 MG TABLET.DR PO SCH (08:50)
[2020-12-06] MEDS: FENOFIBRATE NANOCRYS (145 MG) 145 MG TABLET PO SCH (08:50)
[2020-12-06] MEDS: CLOPIDOGREL BISULFATE 75 MG TABLET PO SCH (08:51)
[2020-12-06] MEDS: CHOLECALCIFEROL 1,000 UNIT TABLET (VIT D3) PO SCH (08:51)
[2020-12-06] MEDS: FLUCONAZOLE (100 MG) 100 MG TABLET PO SCH (08:51)
[2020-12-06] MEDS: CYANOCOBALAMIN 500 MCG TABLET PO SCH (08:51)
[2020-12-06] MEDS: MINERAL OIL/PETROLATUM,WHITE 120 GM JAR TP SCH (08:59)
[2020-12-06] MEDS: THERAHONEY GEL 1.5 OZ TUBE TP SCH (08:59)
[2020-12-06] MEDS: BRIMONIDINE TARTRATE OPHT SOLN 5 ML BOTTLE EACHEYE SCH ×2 (09:21→16:29)
[2020-12-06] MEDS: TIMOLOL 0.5% SOLN OPHTH 5 ML BOTTLE EACHEYE SCH ×2 (09:22→16:29)
[2020-12-06 11:49] LABS: BASOPHILS # (AUTO) 0.1 /CMM (0.0-0.2); BASOPHILS % (AUTO) 0.7 % (0.0-2.0); EOSINOPHILS % (AUTO) 0.3 % (0.0-6.0); HEMATOCRIT 25 % (39-51); HEMOGLOBIN 8.4 g/dL (13.5-17.5); LYMPHOCYTES # (AUTO) 1.2 /CMM (0.8-4.8); LYMPHOCYTES % (AUTO) 10.6 % (20.0-44.0); MEAN CORPUSCULAR HGB CONC 34 g/dl (31.0-36.0); MEAN CORPUSCULAR VOLUME 86 fL (80-96); MONOCYTES # (AUTO) 1.7 /CMM (0.1-1.30); MONOCYTES % (AUTO) 15.5 % (2.0-12.0); NEUTROPHILS # (AUTO) 8.2 /CMM (1.8-8.9); NEUTROPHILS % (AUTO) 72.9 % (43.0-81.0); PLATELET COUNT (AUTO) 248 /CMM (150-450); WHITE BLOOD COUNT (AUTO) 11.3 K/uL (4.3-11.0)
[2020-12-06 12:19] LABS: CALCIUM, SERUM 7.6 mg/dL (8.5-10.1); CREATININE 4.6 mg/dL (0.6-1.3); POTASSIUM 3.5 mmol/L (3.5-5.1)
[2020-12-06 12:44] LABS: BAND % (MANUAL) 1 % (0.0-5.0); EOSINOPHILS % (MANUAL) 1 % (0-4); LYMPHOCYTES % (MANUAL) 7 % (16-48); MONOCYTES % (MANUAL) 11 % (0-11.0); NEUTROPHILS % (MANUAL) 80 (42-76)
[2020-12-06] MEDS: IV D5/ 0.9% NACL 1,000 ML IV PRN (14:02)
[2020-12-06 16:00] VITALS: BP 133/54
--- NOTE | 2020-12-06 19:07 | NUR ---
MS/RN CLOSING NOTE PATIENT IS ASLEEP IN BED, EASILY WOKEN UP. A/O X4, GIBRALTARIAN SPEAKING. NO ACUTE DISTRESS NOTED. PATIENT ON ROOM AIR TOLERATING WELL, NO SOB NOTED, BREATHING EVEN NON LABORED. SAFETY MEASURE IN PLACE, BED LOCKED AND IN LOWEST POSITION, CALL LIGHT WITHIN REACH. ALL NEEDS MET THROUGHOUT THE SHIFT. RIGHT FOOT DRESSING WAS CHANGED. WILL ENDORSE TO SECURITY SPECIALIST NURSE.
--- NOTE | 2020-12-06 19:58 | NUR ---
MS RN OPENING NOTES PATIENT A/OX4 ABLE TO MAKE NEEDS KNOWN. ON ROOM AIR TOLERATING WELL WITH NO SOB. DENIES PAIN OR DISCOMFORT AT THIS TIME. HD CATH TO RIGHT GROIN, INTACT; DRESSING C/D/I. RIGHT WRIST IV #20G INFUSING D5NS @ 60ML/HR; PATENT AND INTACT. DRESSING ON RIGHT FOOT KEPT CLEAN. ALL SAFETY MEASURES IN PLACE: BED IN LOWEST LOCKED POSITION, SIDE RAILS UPX2, CALL LIGHT WITHIN EASY REACH, BED ALARMS ON. PATIENT MEDICALLY STABLE AT THIS TIME.
[2020-12-06 20:00] VITALS: BP 166/54
[2020-12-06] MEDS: ATORVASTATIN 10 MG TABLET PO SCH (21:33)
[2020-12-06] MEDS: LATANOPROST EYE DROP 0.005% 2.5 ML BOTTLE EACHEYE SCH (21:34)
[2020-12-06] MEDS: INSULIN GLARGINE, 100 UNIT/ML CARTRIDGE SQ SCH (21:36)
[2020-12-06] MEDS: CEFTRIAXONE 1 G in IV D5W 50 ML IV SCH (21:45)
[2020-12-07] MEDS: METRONIDAZOLE 500 MG TABLET PO SCH ×3 (05:09→21:49)
--- NOTE | 2020-12-07 06:32 | NUR ---
MS RN CLOSING NOTES PATIENT A/OX4 ABLE TO MAKE NEEDS KNOWN. ON ROOM AIR TOLERATING WELL WITH NO SOB. DENIES PAIN OR DISCOMFORT AT THIS TIME. HD CATH TO RIGHT GROIN, INTACT; DRESSING C/D/I. RIGHT WRIST IV #20G INFUSING D5NS @ 60ML/HR; PATENT AND INTACT. DRESSING ON RIGHT FOOT KEPT CLEAN. ALL SAFETY MEASURES IN PLACE: BED IN LOWEST LOCKED POSITION, SIDE RAILS UPX2, CALL LIGHT WITHIN EASY REACH, BED ALARMS ON. PATIENT MEDICALLY STABLE AT THIS TIME. WILL ENDORSE JUAN MANUEL TO ONCOMING MORNING RN
[2020-12-07] MEDS: PANTOPRAZOLE 40 MG TABLET.DR PO SCH (07:19)
--- NOTE | 2020-12-07 07:27 | NUR ---
MS RN OPENING NOTES RECEIVED PATIENT AWAKE IN BED IN NO ACUTE SIGNS OF DISTRESS. A/OX4. VIETNAMESE SPEAKING, DENIES PAIN OR ANY DISCOMFORTS AT THIS TIME. ON ROOM AIR, BREATHING EVEN AND UNLABORED. HD CATH ON RIGHT GROIN IN PLACE WITH DRESSING C/D/I. IV ACCESS ON RIGHT WRIST #20G INTACT WITH IVF OF D5NS @ 60ML/HR INFUSING WELL, NO S/S OF INFILTRATION NOTED. DRESSING ON RIGHT FOOT C/D/I. ALL SAFETY MEASURES IN PLACE: BED IN LOWEST LOCKED POSITION, SIDE RAILS UPX2, CALL LIGHT WITHIN EASY REACH AND BED ALARM ON. WILL CONTINUE TO MONITOR PT ACCORDINGLY.
[2020-12-07] MEDS: BLOOD SUGAR DIAGNOSTIC 1 EACH STRIP IN SCH ×4 (07:34→21:39)
[2020-12-07] MEDS: INSULIN REGULAR, HUMAN 100 UNIT/ML 3 ML VIAL SQ PRN ×4 (07:34→21:41)
[2020-12-07] MEDS: IV D5/ 0.9% NACL 1,000 ML IV PRN (07:37)
[2020-12-07 08:11] VITALS: BP 152/64
[2020-12-07] MEDS: CYANOCOBALAMIN 500 MCG TABLET PO SCH (08:48)
[2020-12-07] MEDS: ASPIRIN 81 MG TAB.CHEW PO SCH (08:48)
[2020-12-07] MEDS: CHOLECALCIFEROL 1,000 UNIT TABLET (VIT D3) PO SCH (08:48)
[2020-12-07] MEDS: FLUCONAZOLE (100 MG) 100 MG TABLET PO SCH (08:49)
[2020-12-07] MEDS: FENOFIBRATE NANOCRYS (145 MG) 145 MG TABLET PO SCH (08:49)
[2020-12-07] MEDS: LINEZOLID 600 MG TABLET PO SCH ×2 (08:49→21:49)
[2020-12-07] MEDS: CLOPIDOGREL BISULFATE 75 MG TABLET PO SCH (08:49)
[2020-12-07] MEDS: SEVELAMER CARBONATE 800 MG POWD.PACK GT SCH ×3 (08:50→17:24)
[2020-12-07] MEDS: TIMOLOL 0.5% SOLN OPHTH 5 ML BOTTLE EACHEYE SCH ×2 (08:51→17:25)
[2020-12-07] MEDS: MINERAL OIL/PETROLATUM,WHITE 120 GM JAR TP SCH (08:51)
[2020-12-07] MEDS: BRIMONIDINE TARTRATE OPHT SOLN 5 ML BOTTLE EACHEYE SCH ×2 (08:52→17:25)
--- NOTE | 2020-12-07 08:52 | NUR ---
RN NOTES PT FOR RIGHT FOOT DEBRIDEMENT. EXPLAINED PROCEDURE TO PT AND VERBALIZED UNDERSTANDING. CONSENT SIGNED BY PT AND FILED IN HIS CHART.
[2020-12-07 08:55] LABS: BASOPHILS # (AUTO) 0.2 /CMM (0.0-0.2); BASOPHILS % (AUTO) 1.3 % (0.0-2.0); EOSINOPHILS % (AUTO) 0.2 % (0.0-6.0); HEMATOCRIT 29 % (39-51); HEMOGLOBIN 9.3 g/dL (13.5-17.5); LYMPHOCYTES # (AUTO) 1.4 /CMM (0.8-4.8); LYMPHOCYTES % (AUTO) 11.7 % (20.0-44.0); MEAN CORPUSCULAR HGB CONC 33 g/dl (31.0-36.0); MEAN CORPUSCULAR VOLUME 88 fL (80-96); MONOCYTES # (AUTO) 1.5 /CMM (0.1-1.30); MONOCYTES % (AUTO) 12.8 % (2.0-12.0); NEUTROPHILS # (AUTO) 8.8 /CMM (1.8-8.9); PLATELET COUNT (AUTO) 273 /CMM (150-450); RED BLOOD CELL COUNT(AUTO) 3.26 MIL/uL (4.5-6.0); WHITE BLOOD COUNT (AUTO) 11.9 K/uL (4.3-11.0)
[2020-12-07 09:04] LABS: CALCIUM, SERUM 7.8 mg/dL (8.5-10.1); CREATININE 5.2 mg/dL (0.6-1.3); POTASSIUM 4.1 mmol/L (3.5-5.1)
--- NOTE | 2020-12-07 09:37 | NUR ---
RN NOTES PT S/P RIGHT FOOT WOUNDS DEBRIDEMENT BY DR ALLEN. COLLECTED 2 SPECIMEN FOR CULTURES. PHOTOS TAKEN AND FILED IN PT'S CHART. WILL CONTINUE TO MONITOR.
[2020-12-07] MEDS: THERAHONEY GEL 1.5 OZ TUBE TP SCH (09:44)
[2020-12-07 11:51] LABS: LYMPHOCYTES % (MANUAL) 15 % (16-48); MONOCYTES % (MANUAL) 8 % (0-11.0); NEUTROPHILS % (MANUAL) 77 (42-76)
[2020-12-07 15:48] VITALS: BP 145/50
--- NOTE | 2020-12-07 15:49 | NUR ---
RN NOTES PT JUST HEMODIALYSIS DONE VIA RIGHT FEMORAL HD CATHETER, TOLERATED PROCEDURE WELL WITH 1,500ML OUTPUT. S/P HD VS NOTED: BP 145/50, P 85, R 18 AND T 97.9F. WILL CONTINUE TO MONITOR PT.
[2020-12-07] MEDS: LACTOBACILLUS RHAMNOSUS GG 1 EACH CAP.SPRINK PO SCH (17:24)
--- NOTE | 2020-12-07 18:32 | NUR ---
MS RN CLOSING NOTES PATIENT IN BED AWAKE AT THIS TIME. A/OX4. JORDANIAN SPEAKING. TOLERATING ROOM AIR WITH NO SOB NOTED DURING SHIFT. HD CATH ON RIGHT GROIN IN PLACE WITH DRESSING C/D/I, S/P HD TODAY, NO DELAYED ILL EFFECTS NOTED. IV ACCESS ON RIGHT WRIST #20G INTACT WITH IVF OF D5NS @ 60ML/HR INFUSING WELL, NO S/S OF INFILTRATION NOTED. DRESSING ON RIGHT FOOT C/D/I. ALL NEEDS AND CARE ATTENDED WELL. ALL SAFETY MEASURES KEPT IN PLACE: BED IN LOWEST LOCKED POSITION, SIDE RAILS UP X2, CALL LIGHT WITHIN EASY REACH AND BED ALARM ON. WILL ENDORSE JUAN MANUEL TO PRE PAROLE COUNSELING AIDE NURSE
--- NOTE | 2020-12-07 19:31 | NUR ---
MS RN OPENING NOTES PATIENT A/OX4 ABLE TO MAKE NEEDS KNOWN. ON ROOM AIR TOLERATING WELL WITH NO SOB. DENIES PAIN OR DISCOMFORT AT THIS TIME. HD CATH TO RIGHT GROIN, INTACT; DRESSING C/D/I. RIGHT WRIST IV #20G INFUSING D5NS @ 60ML/HR; PATENT AND INTACT. DRESSING ON RIGHT FOOT KEPT C/D/I. ALL SAFETY MEASURES IN PLACE: BED IN LOWEST LOCKED POSITION, SIDE RAILS UPX2, CALL LIGHT WITHIN EASY REACH, BED ALARMS ON. PATIENT MEDICALLY STABLE AT THIS TIME.
[2020-12-07 20:00] VITALS: BP 125/70
[2020-12-07] MEDS: INSULIN GLARGINE, 100 UNIT/ML CARTRIDGE SQ SCH (21:42)
[2020-12-07] MEDS: ACETAMINOPHEN 325 MG TABLET PO PRN (21:49)
[2020-12-07] MEDS: ATORVASTATIN 10 MG TABLET PO SCH (21:49)
[2020-12-07] MEDS: CEFTRIAXONE 1 G in IV D5W 50 ML IV SCH (21:50)
--- NOTE | 2020-12-07 21:50 | NUR ---
MS LORENZ NOTES - TEMP PATIENT NOTED WITH TEMP OF 100.6 F. SKIN WARM AND DRY TO TOUCH, NO CHILLS, PATIENT DENIES PAIN. ADMINISTERED ACETAMINOPHEN 650MG ORDERED. WILL CONTINUE TO ASSESS FOR TEMP. Addendum: 12/07/20 at 2321 by MICHELLE JIN RN COOLING INTERVENTIONS APPLIED
[2020-12-07] MEDS: LATANOPROST EYE DROP 0.005% 2.5 ML BOTTLE EACHEYE SCH (21:55)
[2020-12-08] MEDS: IV D5/ 0.9% NACL 1,000 ML IV PRN ×2 (01:54→23:45)
[2020-12-08] MEDS: METRONIDAZOLE 500 MG TABLET PO SCH ×3 (05:34→21:24)
[2020-12-08] MEDS: BLOOD SUGAR DIAGNOSTIC 1 EACH STRIP IN SCH ×4 (06:32→22:00)
[2020-12-08] MEDS: PANTOPRAZOLE 40 MG TABLET.DR PO SCH (06:33)
[2020-12-08] MEDS: INSULIN REGULAR, HUMAN 100 UNIT/ML 3 ML VIAL SQ PRN ×3 (06:33→23:04)
[2020-12-08 08:00] VITALS: BP 158/66
[2020-12-08] MEDS: CHOLECALCIFEROL 1,000 UNIT TABLET (VIT D3) PO SCH (09:49)
[2020-12-08] MEDS: ASPIRIN 81 MG TAB.CHEW PO SCH (09:49)
[2020-12-08] MEDS: CLOPIDOGREL BISULFATE 75 MG TABLET PO SCH (09:49)
[2020-12-08] MEDS: FENOFIBRATE NANOCRYS (145 MG) 145 MG TABLET PO SCH (09:49)
[2020-12-08] MEDS: CYANOCOBALAMIN 500 MCG TABLET PO SCH (09:50)
[2020-12-08] MEDS: LACTOBACILLUS RHAMNOSUS GG 1 EACH CAP.SPRINK PO SCH ×2 (09:51→17:48)
[2020-12-08] MEDS: SEVELAMER CARBONATE 800 MG POWD.PACK GT SCH ×3 (09:51→17:48)
[2020-12-08] MEDS: LINEZOLID 600 MG TABLET PO SCH ×2 (09:51→21:24)
[2020-12-08] MEDS: BRIMONIDINE TARTRATE OPHT SOLN 5 ML BOTTLE EACHEYE SCH ×2 (09:59→17:48)
[2020-12-08] MEDS: TIMOLOL 0.5% SOLN OPHTH 5 ML BOTTLE EACHEYE SCH ×2 (09:59→17:47)
[2020-12-08] MEDS: THERAHONEY GEL 1.5 OZ TUBE TP SCH (10:02)
[2020-12-08] MEDS: MINERAL OIL/PETROLATUM,WHITE 120 GM JAR TP SCH (10:02)
[2020-12-08 16:00] VITALS: BP 146/58
--- NOTE | 2020-12-08 19:25 | NUR ---
MS RN: CONTINUITY OF CARE Patient in bed, awake, A/O x3. Right foot wound with CASSI wrap, no c/o pain. IVF infusing. Stable oxygen saturation on room air. Fall precaution maintained.
--- NOTE | 2020-12-08 19:37 | NUR ---
PT IN BED RESTING, NO ACUTE DISTRESS AT THIS TIME, VSS. SAFETY MEASURES MAINTAINED, CALL LIGHT WITHIN REACH, WILL ENDORSE TO ONCOMING NURSE.
[2020-12-08 20:00] VITALS: BP 148/65
[2020-12-08] MEDS: CEFTRIAXONE 1 G in IV D5W 50 ML IV SCH (21:19)
[2020-12-08] MEDS: ATORVASTATIN 10 MG TABLET PO SCH (21:24)
[2020-12-08] MEDS: LATANOPROST EYE DROP 0.005% 2.5 ML BOTTLE EACHEYE SCH (23:01)
[2020-12-08] MEDS: INSULIN GLARGINE, 100 UNIT/ML CARTRIDGE SQ SCH (23:05)
[2020-12-09] MEDS: METRONIDAZOLE 500 MG TABLET PO SCH ×3 (05:19→22:10)
--- NOTE | 2020-12-09 05:43 | NUR ---
MS RN: END OF SHIFT REPORT Right foot wound with CASSI wrap, able to move right foot, denies pain. IVF infusing, on IV Rocephin, afebrile. Right groin HD cath, no bleeding. Fall precaution maintained. Plan for Perma cath placement with Dr. Welch, awaiting schedule. Will endorse to oncoming RN.
[2020-12-09] MEDS: BLOOD SUGAR DIAGNOSTIC 1 EACH STRIP IN SCH ×4 (06:36→22:08)
[2020-12-09] MEDS: INSULIN REGULAR, HUMAN 100 UNIT/ML 3 ML VIAL SQ PRN ×4 (06:37→22:14)
--- NOTE | 2020-12-09 07:48 | NUR ---
MS RN OPENING NOTES RECEIVED PT ON BED AAOX3, ASLEEP BUT EASILY AROUSABLE, MOROCC[place]/SWEDISH SPEAKING. RESPIRATION EVEN AND NON LABORED WITH NO ACUTE RESPIRATORY DISTRESS. ABD SOFT AND NON DISTENDED WITH ACTIVE BOWEL SOUNDS, LBM 3/21. SKIN WARM TO TOUCH AND DRY, RIGHT FOOT S/O DEBRIDEMENT DRESSING CLEAN AND INTACT, OFFLOAD. PT DENIES PAIN AND DISCOMFORT AT THIS TIME. IV SITE AT RIGHT HAND, NO S.SX OF INFILTRATION, PATENT IN FLUSHING WITH D5NS @ 60 ML/HR, WITH RIGHT INGUINAL HD CATH IN PLACE. BED IN LOW LOCKED POSITION, CALL LIGHT WITHIN REACHED, SRX2 UP FOR SAFETY, WILL CONT TO MONITOR CARE
[2020-12-09 08:00] VITALS: BP 123/80
--- NOTE | 2020-12-09 08:27 | NUR ---
M/S RN NOTES CHAPERONED DR. PEDRAZA FOR RIGHT FOOT DEBRIDEMENT. INFORMED CONSENT SIGNED BY PT. PROCEDURE TOLERATED WELL. WILL CONT TO MONITOR
[2020-12-09] MEDS: CHOLECALCIFEROL 1,000 UNIT TABLET (VIT D3) PO SCH (08:44)
[2020-12-09] MEDS: SEVELAMER CARBONATE 800 MG POWD.PACK GT SCH ×3 (08:44→17:42)
[2020-12-09] MEDS: CLOPIDOGREL BISULFATE 75 MG TABLET PO SCH (08:45)
[2020-12-09] MEDS: LINEZOLID 600 MG TABLET PO SCH ×2 (08:45→22:06)
[2020-12-09] MEDS: ASPIRIN 81 MG TAB.CHEW PO SCH (08:45)
[2020-12-09] MEDS: LACTOBACILLUS RHAMNOSUS GG 1 EACH CAP.SPRINK PO SCH ×2 (08:45→16:12)
[2020-12-09] MEDS: FENOFIBRATE NANOCRYS (145 MG) 145 MG TABLET PO SCH (08:45)
[2020-12-09] MEDS: CYANOCOBALAMIN 500 MCG TABLET PO SCH (08:46)
[2020-12-09] MEDS: TIMOLOL 0.5% SOLN OPHTH 5 ML BOTTLE EACHEYE SCH ×2 (08:46→16:18)
[2020-12-09] MEDS: PANTOPRAZOLE 40 MG TABLET.DR PO SCH (08:46)
[2020-12-09] MEDS: MINERAL OIL/PETROLATUM,WHITE 120 GM JAR TP SCH (08:47)
[2020-12-09] MEDS: THERAHONEY GEL 1.5 OZ TUBE TP SCH (08:47)
[2020-12-09] MEDS: BRIMONIDINE TARTRATE OPHT SOLN 5 ML BOTTLE EACHEYE SCH ×2 (08:50→16:18)
[2020-12-09 16:00] VITALS: BP 133/74
[2020-12-09 16:40] LABS: CALCIUM, SERUM 7.4 mg/dL (8.5-10.1); CREATININE 4.8 mg/dL (0.6-1.3); POTASSIUM 4.1 mmol/L (3.5-5.1)
[2020-12-09] MEDS: IV D5/ 0.9% NACL 1,000 ML IV PRN (16:52)
--- NOTE | 2020-12-09 18:49 | NUR ---
M/S RN CLOSING NOTES PT AAOX3-4 PASHTO SPEAKING, NO C/O SOB. DENIES PAIN AND DISCOMFORT. ABLE TO URINATE TODAY VIA URINAL, YELLOW OUTPUT. NO BM. ATE WITH THE PERCENTAGE OF 50-60% OF MEAL. SKIN WARM TO TOUCH AND DRY. RIGHT FOOT DRESSING CLEAN AND INTACT, OFFLOAD. IV SITE RIGHT AC #22, NEW INSERT, PATENT WITH D5NS #60 ML/HR RUNNING. ALL CONCERNS ATTENDED. CALL LIGHT WITHIN REACHED. HD TODAY (EVENING), ENDORSED CARE TO NEXT SHIFT
--- NOTE | 2020-12-09 19:15 | NUR ---
MS RN: CONTINUITY OF CARE Patient is awake, dialysis on progress. Right foot wound with CASSI wrap, able to move right foot, denies pain. Fall precaution maintained.
[2020-12-09 20:00] VITALS: BP 148/42
--- NOTE | 2020-12-09 21:53 | NUR ---
MS RN: Dialysis treatment done, patient tolerated well. 1500ml fluid drainage per KELECHI Rodriguez.
[2020-12-09] MEDS: ATORVASTATIN 10 MG TABLET PO SCH (22:06)
[2020-12-09] MEDS: LATANOPROST EYE DROP 0.005% 2.5 ML BOTTLE EACHEYE SCH (22:10)
[2020-12-09] MEDS: INSULIN GLARGINE, 100 UNIT/ML CARTRIDGE SQ SCH (22:14)
[2020-12-09] MEDS: CEFTRIAXONE 1 G in IV D5W 50 ML IV SCH (22:27)
[2020-12-10] MEDS: METRONIDAZOLE 500 MG TABLET PO SCH ×3 (05:00→22:06)
[2020-12-10] MEDS: BLOOD SUGAR DIAGNOSTIC 1 EACH STRIP IN SCH ×4 (05:43→22:06)
[2020-12-10] MEDS: INSULIN REGULAR, HUMAN 100 UNIT/ML 3 ML VIAL SQ PRN ×4 (05:45→22:11)
[2020-12-10 05:50] LABS: BASOPHILS # (AUTO) 0.1 /CMM (0.0-0.2); BASOPHILS % (AUTO) 1.4 % (0.0-2.0); EOSINOPHILS % (AUTO) 1.4 % (0.0-6.0); HEMATOCRIT 22 % (39-51); HEMOGLOBIN 7.4 g/dL (13.5-17.5); LYMPHOCYTES # (AUTO) 1.4 /CMM (0.8-4.8); LYMPHOCYTES % (AUTO) 19.3 % (20.0-44.0); MEAN CORPUSCULAR HGB CONC 33 g/dl (31.0-36.0); MEAN CORPUSCULAR VOLUME 90 fL (80-96); MONOCYTES # (AUTO) 0.9 /CMM (0.1-1.30); MONOCYTES % (AUTO) 13.1 % (2.0-12.0); NEUTROPHILS # (AUTO) 4.6 /CMM (1.8-8.9); NEUTROPHILS % (AUTO) 64.8 % (43.0-81.0); PLATELET COUNT (AUTO) 249 /CMM (150-450)
--- NOTE | 2020-12-10 06:13 | NUR ---
MS RN: END OF SHIFT REPORT Right foot wound with CASSI wrap, able to move right foot, denies pain. IVF infusing, on IV Rocephin, afebrile. NPO since MN. Plan for Perma cath placement today with Dr. Welch. Patient consented procedure. Will endorse to oncoming RN.
[2020-12-10 06:14] LABS: CALCIUM, SERUM 7.6 mg/dL (8.5-10.1); CREATININE 3.8 mg/dL (0.6-1.3); POTASSIUM 4.1 mmol/L (3.5-5.1)
--- NOTE | 2020-12-10 07:20 | NUR ---
MS RN NOTES RECEIVED PATIENT IN BED. A/O X3. KHMER SPEAKING. ON ROOM AIR, TOLERATING WELL. NO SOB NOTED. NO S/S OF RESPIRATORY DISTRESS. REMAINS ON NPO FOR PERMACATH DIALYSIS ACCESS DEVICE, CONSENTS SIGNED. IV ACCESS ON R UA #20 G, D5NS RUNNING @60 ML/HR AND R FEMORAL CORNEL CATH. SAFETY MEASURES MAINTAINED. BED IN LOWEST POSITION, BRAKES LOCKED. SIDE RAILS UP X2. CALL LIGHT WITHIN REACH. WILL CONTINUE PLAN OF CARE.
[2020-12-10] MEDS: PANTOPRAZOLE 40 MG TABLET.DR PO SCH (07:30)
[2020-12-10] MEDS ORDERED: ANESTHESIA TRAY IN PYXIS 1 EA TRAY MC ONE (07:57)
[2020-12-10] MEDS: SEVELAMER CARBONATE 800 MG POWD.PACK GT SCH ×3 (08:00→17:02)
[2020-12-10 08:16] VITALS: BP 156/76
[2020-12-10] MEDS: FENOFIBRATE NANOCRYS (145 MG) 145 MG TABLET PO SCH (08:17)
[2020-12-10] MEDS: CHOLECALCIFEROL 1,000 UNIT TABLET (VIT D3) PO SCH (08:17)
[2020-12-10] MEDS: CLOPIDOGREL BISULFATE 75 MG TABLET PO SCH (08:17)
[2020-12-10] MEDS: LACTOBACILLUS RHAMNOSUS GG 1 EACH CAP.SPRINK PO SCH ×2 (08:17→16:52)
[2020-12-10] MEDS: ASPIRIN 81 MG TAB.CHEW PO SCH (08:17)
[2020-12-10] MEDS: CYANOCOBALAMIN 500 MCG TABLET PO SCH (08:17)
[2020-12-10] MEDS: LINEZOLID 600 MG TABLET PO SCH ×2 (08:17→22:06)
[2020-12-10] MEDS: MINERAL OIL/PETROLATUM,WHITE 120 GM JAR TP SCH (08:18)
[2020-12-10] MEDS: THERAHONEY GEL 1.5 OZ TUBE TP SCH (08:18)
[2020-12-10] MEDS: BRIMONIDINE TARTRATE OPHT SOLN 5 ML BOTTLE EACHEYE SCH ×2 (08:23→16:49)
[2020-12-10] MEDS: TIMOLOL 0.5% SOLN OPHTH 5 ML BOTTLE EACHEYE SCH ×2 (08:23→16:50)
--- NOTE | 2020-12-10 09:45 | NUR ---
MS RN NOTE PATIENT WAS BROUGHT DOWN TO THE OR FOR PERMACATH DIALYSIS ACCESS DEVICE.
[2020-12-10] MEDS ORDERED: LIDOCAINE HCL/MPF 1% 30 ML VIAL IJ ONE (10:06)
[2020-12-10] MEDS ORDERED: HEPARIN SODIUM, PORCINE 1,000 UNIT/ML VIAL ONE ×2 (10:06→10:07)
--- NOTE | 2020-12-10 12:19 | NUR ---
MS RN NOTE PATIENT WAS BACK FROM THE SURGERY. VS BP 124/48 [place] 78 RR [address] JAZMIN Dumont IJ PERMACATH IS READY TO USE. R FEMORAL CORNEL CATH WAS REMOVED, MONITOR BLEEDING Q15 FOR 1 HR. NO IV OR DRAWING OF BLOOD ON THE LEFT ARM AND RESUME DIET ORDERED.
[2020-12-10] MEDS ORDERED: SEVELAMER CARBONATE 800 MG POWD.PACK ONE (12:42)
[2020-12-10] MEDS: IV D5/ 0.9% NACL 1,000 ML IV PRN (12:49)
[2020-12-10] MEDS: NEPRO VAN 237 ML CAN PO SCH ×2 (14:53→16:50)
[2020-12-10 16:07] VITALS: BP 114/71
--- NOTE | 2020-12-10 18:07 | NUR ---
MS RN CLOSING NOTE PATIENT RESTING IN BED. A/O X3. ON ROOM AIR, TOLERATING WELL. NO SOB NOTED. IN NO APPARENT DISTRESS. IV ACCESS ON R UA #20 G, D5NS RUNNING @60 ML/HR AND R IJ PERMA CATH, INTACT. ALL NEEDS HAVE BEEN MET. ROUTINE MEDS WERE GIVEN ORDERED. INSULIN COVERAGE GIVEN PER PROTOCOL. SAFETY MEASURES MAINTAINED. BED IN LOWEST POSITION, BRAKES LOCKED. SIDE RAILS UP X2. CALL LIGHT WITHIN REACH. WILL ENDORSE CONTINUITY OF CARE TO ONCOMING SHIFT.
[2020-12-10 20:00] VITALS: BP 123/58
[2020-12-10] MEDS: ATORVASTATIN 10 MG TABLET PO SCH (22:05)
[2020-12-10] MEDS: LATANOPROST EYE DROP 0.005% 2.5 ML BOTTLE EACHEYE SCH (22:06)
[2020-12-10] MEDS: CEFTRIAXONE 1 G in IV D5W 50 ML IV SCH (22:07)
[2020-12-10] MEDS: INSULIN GLARGINE, 100 UNIT/ML CARTRIDGE SQ SCH (22:12)
[2020-12-11] MEDS: METRONIDAZOLE 500 MG TABLET PO SCH ×3 (04:31→22:45)
[2020-12-11] MEDS: IV D5/ 0.9% NACL 1,000 ML IV PRN ×2 (04:48→22:48)
--- NOTE | 2020-12-11 05:04 | NUR ---
DAUGHTER NASEEM CALLED; REQUESTING CALL BACK FROM MD GUSMAN UPDATED ON PATIENTS CONDITION. SHE ALSO SPOKE WITH PATIENT VIA PHONE. SHE REPORTS THAT PATIENT IS UPSET BY BEING AT HOSPITAL AND BOTH HIM AND NASEEM FEEL LIKE HE WOULD LIKE TO GET DISCHARGED TODAY OR SOON. NASEEM PHONE [phone] IS REQUESTING PHONE CALL FROM TODAY TO SPEAK WITH HIM.
[2020-12-11 05:45] LABS: BASOPHILS % (AUTO) 0.5 % (0.0-2.0); EOSINOPHILS % (AUTO) 1.3 % (0.0-6.0); LYMPHOCYTES # (AUTO) 1.2 /CMM (0.8-4.8); LYMPHOCYTES % (AUTO) 18.7 % (20.0-44.0); MEAN CORPUSCULAR HGB CONC 33 g/dl (31.0-36.0); MEAN CORPUSCULAR VOLUME 90 fL (80-96); MONOCYTES # (AUTO) 0.9 /CMM (0.1-1.30); MONOCYTES % (AUTO) 13.7 % (2.0-12.0); NEUTROPHILS # (AUTO) 4.3 /CMM (1.8-8.9); NEUTROPHILS % (AUTO) 65.8 % (43.0-81.0); PLATELET COUNT (AUTO) 240 /CMM (150-450); RED BLOOD CELL COUNT(AUTO) 2.25 MIL/uL (4.5-6.0); WHITE BLOOD COUNT (AUTO) 6.6 K/uL (4.3-11.0)
[2020-12-11 06:06] LABS: HEMATOCRIT 20 % (39-51); HEMOGLOBIN 6.7 g/dL (13.5-17.5)
--- NOTE | 2020-12-11 06:41 | NUR ---
CHUCKY CALLED BACK INFORMED OF HGB 6.7 NEW ORDERS RECIEVED.
[2020-12-11 06:48] LABS: CALCIUM, SERUM 7.2 mg/dL (8.5-10.1); CREATININE 4.4 mg/dL (0.6-1.3)
--- NOTE | 2020-12-11 07:25 | NUR ---
MS RN OPENING NOTE RECEIVED PATIENT IN BED. A/O X3. ROMANIAN SPEAKING. ON ROOM AIR, TOLERATING WELL. NO SOB NOTED. IN NO APPARENT DISTRESS. DENIES ANY PAIN OR DISCOMFORT AT THIS TIME. IV ACCESS ON R UA #20 G, INTACT, D5NS RUNNING @60 ML/HR. R IJ PERMACATH C/D/I. SAFETY MEASURES MAINTAINED. BED IN LOWEST POSITION, BRAKES LOCKED. SIDE RAILS UP X2. CALL LIGHT WITHIN REACH. WILL CONTINUE PLAN OF CARE.
[2020-12-11] MEDS: PANTOPRAZOLE 40 MG TABLET.DR PO SCH (07:30)
[2020-12-11] MEDS: BLOOD SUGAR DIAGNOSTIC 1 EACH STRIP IN SCH ×4 (07:46→23:02)
[2020-12-11 08:00] VITALS: BP 128/64
[2020-12-11] MEDS: SEVELAMER CARBONATE 800 MG POWD.PACK GT SCH ×3 (08:00→18:00)
[2020-12-11] MEDS: BRIMONIDINE TARTRATE OPHT SOLN 5 ML BOTTLE EACHEYE SCH ×2 (08:08→16:30)
[2020-12-11] MEDS: THERAHONEY GEL 1.5 OZ TUBE TP SCH (08:08)
[2020-12-11] MEDS: TIMOLOL 0.5% SOLN OPHTH 5 ML BOTTLE EACHEYE SCH ×2 (08:08→16:30)
[2020-12-11] MEDS: NEPRO VAN 237 ML CAN PO SCH ×2 (08:08→16:30)
[2020-12-11] MEDS: MINERAL OIL/PETROLATUM,WHITE 120 GM JAR TP SCH (08:08)
[2020-12-11] MEDS: ASPIRIN 81 MG TAB.CHEW PO SCH (08:19)
[2020-12-11] MEDS: FENOFIBRATE NANOCRYS (145 MG) 145 MG TABLET PO SCH (08:20)
[2020-12-11] MEDS: LINEZOLID 600 MG TABLET PO SCH ×2 (08:20→22:45)
[2020-12-11] MEDS: CLOPIDOGREL BISULFATE 75 MG TABLET PO SCH (08:20)
[2020-12-11] MEDS: CYANOCOBALAMIN 500 MCG TABLET PO SCH (08:20)
[2020-12-11] MEDS: CHOLECALCIFEROL 1,000 UNIT TABLET (VIT D3) PO SCH (08:20)
[2020-12-11] MEDS: LACTOBACILLUS RHAMNOSUS GG 1 EACH CAP.SPRINK PO SCH ×2 (08:21→16:29)
--- NOTE | 2020-12-11 08:22 | NUR ---
MS RN NOTE PATIENT REFUSED PO MEDICATIONS. EXPLAINED ALL RISKS AND BENEFITS. MEDS RETURNED TO [facility].
[2020-12-11 10:17] LABS: EOSINOPHILS % (MANUAL) 2 % (0-4); LYMPHOCYTES % (MANUAL) 13 % (16-48); MONOCYTES % (MANUAL) 14 % (0-11.0); NEUTROPHILS % (MANUAL) 71 (42-76)
[2020-12-11] MEDS: ACETAMINOPHEN 325 MG TABLET PO PRN (11:49)
--- NOTE | 2020-12-11 11:49 | NUR ---
MS RN NOTE RECHECKED TEMP 99.4. TYLENOL GIVEN. WILL CONTINUE TO MONITOR.
--- NOTE | 2020-12-11 12:02 | NUR ---
RN NOTE BS OF 104. NO INSULIN COVERAGE.
[2020-12-11 16:00] VITALS: BP 123/82
--- NOTE | 2020-12-11 18:45 | NUR ---
MS RN NOTE POST HEMODIALYSIS, 1 L OUT. VS BP 128/61 MA 72 RR 12 TEMP 98.1. NO COMPLICATIONS OF HD. 1 PRBC TRANSFUSED.
--- NOTE | 2020-12-11 18:49 | NUR ---
MS RN CLOSING NOTE PATIENT RESTING IN BED. A/O X3. ON ROOM AIR, TOLERATING WELL. NO SOB NOTED. IN NO APPARENT DISTRESS. DENIES ANY PAIN OR DISCOMFORT AT THIS TIME. IV ACCESS ON R UA #20 G, INTACT AND PATENT, D5NS RUNNING @60 ML/HR. R IJ PERMACATH C/D/I. ALL NEEDS HAVE BEEN MET. ROUTINE MEDS WERE GIVEN ORDERED. SAFETY MEASURES MAINTAINED. BED IN LOWEST POSITION, BRAKES LOCKED. SIDE RAILS UP X2. CALL LIGHT WITHIN REACH. WILL ENDORSE CONTINUITY OF CARE TO ONCOMING SHIFT.
--- NOTE | 2020-12-11 20:00 | NUR ---
MS RN OPENING NOTE PATIENT IN BED. A/O X3. ON ROOM AIR, DENIES SOB . IN NO APPARENT DISTRESS. DENIES PAIN OR DISCOMFORT AT THIS TIME. IV ACCESS ON RFA #20 G, INTACT AND PATENT, D5NS RUNNING @60 ML/HR. RCW PERMACATH C/D/I. SAFETY MEASURES IN PLACE. BED IN LOWEST POSITION, BRAKES LOCKED. SIDE RAILS UP X2. CALL LIGHT WITHIN REACH. VERBALIZED UNDERSTANDING TO CALL FOR ASSISTANCE IF NEEDED. WILL CONT TO MONITOR.
[2020-12-11 20:22] VITALS: BP 122/56
[2020-12-11] MEDS ORDERED: ATORVASTATIN 40 MG TABLET PO SCH (22:00)
[2020-12-11] MEDS: INSULIN REGULAR, HUMAN 100 UNIT/ML 3 ML VIAL SQ PRN (22:46)
[2020-12-11] MEDS: LATANOPROST EYE DROP 0.005% 2.5 ML BOTTLE EACHEYE SCH (22:48)
[2020-12-11] MEDS: INSULIN GLARGINE, 100 UNIT/ML CARTRIDGE SQ SCH (22:48)
[2020-12-11] MEDS: CEFTRIAXONE 1 G in IV D5W 50 ML IV SCH (22:48)
[2020-12-12] MEDS: METRONIDAZOLE 500 MG TABLET PO SCH ×2 (04:30→14:17)
[2020-12-12 06:08] LABS: BASOPHILS # (AUTO) 0.1 /CMM (0.0-0.2); BASOPHILS % (AUTO) 1.4 % (0.0-2.0); EOSINOPHILS % (AUTO) 2.2 % (0.0-6.0); HEMATOCRIT 24 % (39-51); HEMOGLOBIN 7.9 g/dL (13.5-17.5); LYMPHOCYTES # (AUTO) 1.2 /CMM (0.8-4.8); LYMPHOCYTES % (AUTO) 20.1 % (20.0-44.0); MEAN CORPUSCULAR HGB CONC 34 g/dl (31.0-36.0); MEAN CORPUSCULAR VOLUME 89 fL (80-96); MONOCYTES # (AUTO) 0.8 /CMM (0.1-1.30); MONOCYTES % (AUTO) 14.4 % (2.0-12.0); NEUTROPHILS # (AUTO) 3.6 /CMM (1.8-8.9); NEUTROPHILS % (AUTO) 61.9 % (43.0-81.0); PLATELET COUNT (AUTO) 181 /CMM (150-450); RED BLOOD CELL COUNT(AUTO) 2.65 MIL/uL (4.5-6.0); WHITE BLOOD COUNT (AUTO) 5.8 K/uL (4.3-11.0)
[2020-12-12 06:49] LABS: CALCIUM, SERUM 7.6 mg/dL (8.5-10.1); CREATININE 3.9 mg/dL (0.6-1.3); MAGNESIUM 1.8 mg/dL (1.8-2.4); PHOSPHORUS 2.8 mg/dL (2.5-4.9); POTASSIUM 3.9 mmol/L (3.5-5.1)
[2020-12-12 08:00] VITALS: BP 157/73
[2020-12-12] MEDS: NEPRO VAN 237 ML CAN PO SCH ×2 (08:00→17:47)
--- NOTE | 2020-12-12 08:00 | NUR ---
received pt. in am.alert and oriented [id number] kyrgyz speaking.no complaints.rt. foot dressing with moderate amt. dried sannguinous drainage,feet elevated.swelling in dario. arms as well as both feet.mostly med compliant.
[2020-12-12] MEDS: BLOOD SUGAR DIAGNOSTIC 1 EACH STRIP IN SCH ×3 (08:40→17:47)
[2020-12-12] MEDS: FENOFIBRATE NANOCRYS (145 MG) 145 MG TABLET PO SCH (09:00)
[2020-12-12] MEDS: LINEZOLID 600 MG TABLET PO SCH (09:00)
[2020-12-12] MEDS: CHOLECALCIFEROL 1,000 UNIT TABLET (VIT D3) PO SCH (09:00)
[2020-12-12] MEDS: LACTOBACILLUS RHAMNOSUS GG 1 EACH CAP.SPRINK PO SCH ×2 (09:01→17:46)
[2020-12-12] MEDS: CLOPIDOGREL BISULFATE 75 MG TABLET PO SCH (09:01)
[2020-12-12] MEDS: CYANOCOBALAMIN 500 MCG TABLET PO SCH (09:01)
[2020-12-12] MEDS: ASPIRIN 81 MG TAB.CHEW PO SCH (09:02)
[2020-12-12] MEDS: BRIMONIDINE TARTRATE OPHT SOLN 5 ML BOTTLE EACHEYE SCH ×2 (09:04→17:47)
[2020-12-12] MEDS: TIMOLOL 0.5% SOLN OPHTH 5 ML BOTTLE EACHEYE SCH ×2 (09:04→17:47)
[2020-12-12] MEDS: SEVELAMER CARBONATE 800 MG POWD.PACK GT SCH ×3 (09:09→17:42)
[2020-12-12] MEDS: PANTOPRAZOLE 40 MG TABLET.DR PO SCH (09:09)
[2020-12-12] MEDS: MINERAL OIL/PETROLATUM,WHITE 120 GM JAR TP SCH (09:28)
[2020-12-12] MEDS: THERAHONEY GEL 1.5 OZ TUBE TP SCH (09:28)
[2020-12-12] MEDS ORDERED: SEVE0.8P GT (14:56)
[2020-12-12] MEDS ORDERED: TIMO5DRO18 EACHEYE (14:56)
[2020-12-12] MEDS ORDERED: MINE454C11 TP (15:16)
--- NOTE | 2020-12-12 15:30 | NUR ---
dr. arias in and rn noted new drsg on rt. foot with small amt. watery sanguinous drainage on it. because md already chg. dressing no discharge photo.
[2020-12-12 16:00] VITALS: BP 166/71
[2020-12-12] MEDS ORDERED: CEFTRIAXONE 1 G in IV D5W 50 ML IV SCH (16:00)
--- NOTE | 2020-12-12 17:30 | NUR ---
rn in to rm and checking rt. foot dressing,now with large amt. sanguinous thicker consistency drainage.hugo lucero contaced and states he will be here shortly.medical charge entry specialist as well in to rm. to check pt. status.dressing chg. down to foot and noted sm. area of leakage.full dressing replaced.kenton wrap as well applied.
--- NOTE | 2020-12-12 18:00 | NUR ---
dr. arias here and complete chg of foot dressing.now with bulkier wrap to foot. rn contacted dtr.in law who is waiting for dc of pt. downstairs. spoke with dtr. in law.all papers signed,hep lock removed.sent home with supplies as well as dc papers.instructions to family member by rn as well as rn field case manager.taken to lobby via w/c accompanied by senior business consultant.
== END 2020-12-12 19:00 | disposition home health service (06) | DRG 252 ==
LOC: ER 11:45 → MED 14:17 → ICU 12-03 13:15 → TELE 12-04 20:30 → MED 12-06 14:43
PROVIDERS: ADMIT Nurse Practitioner Family; ATTEND Nurse Practitioner Family
PROC: B410YZZ Fluoroscopy of Abdominal Aorta using Other Contrast (ICD-10-PCS; principal; 2020-12-02)
PROC: 06HM33Z Insertion of Infusion Device into Right Femoral Vein, Percutaneous Approach (ICD-10-PCS; 2020-12-02)
PROC: B41FYZZ Fluoroscopy of Right Lower Extremity Arteries using Other Contrast (ICD-10-PCS; 2020-12-02)
PROC: 5A1D70Z Performance of Urinary Filtration, Intermittent, Less than 6 Hours Per Day (ICD-10-PCS; 2020-12-02)
PROC: 047M3ZZ Dilation of Right Popliteal Artery, Percutaneous Approach (ICD-10-PCS; 2020-12-03)
PROC: 0KBV0ZZ Excision of Right Foot Muscle, Open Approach (ICD-10-PCS; 2020-12-04)
PROC: 30233N1 Transfusion of Nonautologous Red Blood Cells into Peripheral Vein, Percutaneous Approach (ICD-10-PCS; 2020-12-05)
PROC: 0KBV0ZZ Excision of Right Foot Muscle, Open Approach (ICD-10-PCS; 2020-12-07)
PROC: 0KBV0ZZ Excision of Right Foot Muscle, Open Approach (ICD-10-PCS; 2020-12-09)
PROC: 0KBV0ZZ Excision of Right Foot Muscle, Open Approach (ICD-10-PCS; 2020-12-10)
PROC: 0JH63XZ Insertion of Tunneled Vascular Access Device into Chest Subcutaneous Tissue and Fascia, Percutaneous Approach (ICD-10-PCS; 2020-12-10)
PROC: 02HV33Z Insertion of Infusion Device into Superior Vena Cava, Percutaneous Approach (ICD-10-PCS; 2020-12-10)
PROC: B518YZA Fluoroscopy of Superior Vena Cava using Other Contrast, Guidance (ICD-10-PCS; 2020-12-10)
DX: E11.52 Type 2 diabetes mellitus with diabetic peripheral angiopathy with gangrene (principal); N17.0 Acute kidney failure with tubular necrosis; E87.2 Acidosis; L03.115 Cellulitis of right lower limb; E87.1 Hypo-osmolality and hyponatremia; N18.4 Chronic kidney disease, stage 4 (severe); I96 Gangrene, not elsewhere classified; L97.418 Non-pressure chronic ulcer of right heel and midfoot with other specified severity; L97.518 Non-pressure chronic ulcer of other part of right foot with other specified severity; N25.81 Secondary hyperparathyroidism of renal origin; B37.89 Other sites of candidiasis; E11.621 Type 2 diabetes mellitus with foot ulcer; E11.22 Type 2 diabetes mellitus with diabetic chronic kidney disease; I12.9 Hypertensive chronic kidney disease with stage 1 through stage 4 chronic kidney disease, or unspecified chronic kidney disease; D72.829 Elevated white blood cell count, unspecified; E78.5 Hyperlipidemia, unspecified; E11.65 Type 2 diabetes mellitus with hyperglycemia; E11.319 Type 2 diabetes mellitus with unspecified diabetic retinopathy without macular edema; D64.9 Anemia, unspecified; F32.9 Major depressive disorder, single episode, unspecified; Z79.84 Long term (current) use of oral hypoglycemic drugs; E83.9 Disorder of mineral metabolism, unspecified; M60.9 Myositis, unspecified; H54.61 Unqualified visual loss, right eye, normal vision left eye; Z20.822 Contact with and (suspected) exposure to COVID-19; B95.2 Enterococcus as the cause of diseases classified elsewhere
CPT/HCPCS: 36415; 71045-TC; 73600-TC; 73630-TC; 73718-TC; 75630-TC; 76770-TC; 80048-TC; 80053-TC; 80061-TC; 80076-TC; 81001; 82550-TC; 82570-TC; 82962-TC; 83540-TC; 83605-TC; 83735-TC; 83880; 83970; 84100-TC; 84155; 84155-TC; 84165; 84300-TC; 84484-TC; 85025-TC; 85652-TC; 85730-TC; 86704; 86705; 86706; 86803; 86850-TC; 87040-TC; 87070-TC; 87075-TC; 87081-TC; 87086-TC; 87186-TC; 87340; 90935-TC; 97110-TC; 97112-TC; 97530-TC; A4216; A6209; A6403; C1725; C1750; C1769; C1887; C1894; C9803; G0378; G0500; J0690; J0692; J0696; J0885; J1644; J1815; J2020; J2250; J2543; J2704; J3010; J3370; J3490; J7030; J7040; J7042; J7050; J7060; J7070; P9016-BL; Q9967

== ENCOUNTER 2020-12-14 08:00 | Outpatient (CLI) | payer MEDICARE ==
[~2020-12-14 08:00] MED LIST changes: -ACET500C43 PO; -ASPI-1169 PO; -CALC1TAB2 PO; +CEFD300C3 PO; +CHOL100062 PO; -CITA10TA17 PO; +CLOP75TA15 PO; +CYAN-51 PO; +FENO145T21 PO; -FOLI1TAB16 PO; -GEMF600T90 PO; +MAGN500C16 PO; -MECL-159 PO; +MINE454C11 TP; +SEVE0.8P GT; +SITA1TAB6 PO; +TIMO5DRO18 EACHEYE
[2020-12-14] MEDS ORDERED: LIDOCAINE SOLN 4% 50 ML BOTTLE ONE (08:35)
[2020-12-14] MEDS ORDERED: MUPIROCIN 2% CREAM 15 GM TUBE TP ONE ×2 (09:19)
[2020-12-14] MEDS ORDERED: CLOTRIMAZOLE 1% 15 GM TUBE TP ONE (09:20)
== END 2020-12-14 23:59 | disposition home or self-care (01) ==
LOC: WOU 08:00
PROVIDERS: ATTEND Podiatrist Foot & Ankle Surgery
DX: E11.52 Type 2 diabetes mellitus with diabetic peripheral angiopathy with gangrene (principal); I96 Gangrene, not elsewhere classified; E11.621 Type 2 diabetes mellitus with foot ulcer; L97.414 Non-pressure chronic ulcer of right heel and midfoot with necrosis of bone; L97.418 Non-pressure chronic ulcer of right heel and midfoot with other specified severity; L97.515 Non-pressure chronic ulcer of other part of right foot with muscle involvement without evidence of necrosis; L97.516 Non-pressure chronic ulcer of other part of right foot with bone involvement without evidence of necrosis; L97.518 Non-pressure chronic ulcer of other part of right foot with other specified severity; E11.42 Type 2 diabetes mellitus with diabetic polyneuropathy; Z79.4 Long term (current) use of insulin; Z79.82 Long term (current) use of aspirin
CPT/HCPCS: 11043; 11044; 11046; A6253 ×2

== ENCOUNTER 2020-12-18 09:10 | Outpatient (CLI) | payer MEDICARE ==
[2020-12-18] MEDS ORDERED: LIDOCAINE SOLN 4% 50 ML BOTTLE ONE (09:14)
[2020-12-18] MEDS ORDERED: MUPIROCIN 2% CREAM 15 GM TUBE TP ONE (09:47)
[2020-12-18] MEDS ORDERED: CLOTRIMAZOLE 1% 15 GM TUBE TP ONE (09:48)
== END 2020-12-18 23:59 | disposition home or self-care (01) ==
LOC: WOU 09:10
PROVIDERS: ATTEND Podiatrist Foot & Ankle Surgery
DX: E11.52 Type 2 diabetes mellitus with diabetic peripheral angiopathy with gangrene (principal); I96 Gangrene, not elsewhere classified; E11.621 Type 2 diabetes mellitus with foot ulcer; L97.416 Non-pressure chronic ulcer of right heel and midfoot with bone involvement without evidence of necrosis; L97.515 Non-pressure chronic ulcer of other part of right foot with muscle involvement without evidence of necrosis; E11.42 Type 2 diabetes mellitus with diabetic polyneuropathy; Z79.4 Long term (current) use of insulin; Z79.82 Long term (current) use of aspirin
CPT/HCPCS: 11043; 11046; A6253

== ENCOUNTER 2020-12-19 08:40 | Outpatient (CLI) | payer MEDICARE ==
[2020-12-19] MEDS ORDERED: MUPIROCIN 2% CREAM 15 GM TUBE TP ONE (09:40)
[2020-12-19] MEDS ORDERED: CLOTRIMAZOLE 1% 15 GM TUBE TP ONE (09:41)
== END 2020-12-19 23:59 | disposition home or self-care (01) ==
LOC: WOU 08:40
PROVIDERS: ATTEND Specialist
DX: E11.52 Type 2 diabetes mellitus with diabetic peripheral angiopathy with gangrene (principal); I96 Gangrene, not elsewhere classified; E11.621 Type 2 diabetes mellitus with foot ulcer; L97.416 Non-pressure chronic ulcer of right heel and midfoot with bone involvement without evidence of necrosis; L97.515 Non-pressure chronic ulcer of other part of right foot with muscle involvement without evidence of necrosis; E11.42 Type 2 diabetes mellitus with diabetic polyneuropathy; E11.22 Type 2 diabetes mellitus with diabetic chronic kidney disease; N18.6 End stage renal disease; Z99.2 Dependence on renal dialysis; Z79.4 Long term (current) use of insulin; Z79.82 Long term (current) use of aspirin
CPT/HCPCS: 82962; A6253 ×2; G0463

== ENCOUNTER 2020-12-21 08:55 | Outpatient (CLI) | payer MEDICARE, MEDICAID ==
[2020-12-21] MEDS ORDERED: LIDOCAINE SOLN 4% 50 ML BOTTLE ONE (09:35)
[2020-12-21] MEDS ORDERED: MUPIROCIN 2% CREAM 15 GM TUBE TP ONE (09:35)
[2020-12-21] MEDS ORDERED: CLOTRIMAZOLE 1% 15 GM TUBE TP ONE (09:36)
[2020-12-21] MEDS ORDERED: GENTAMICIN 0.1% CREAM 15 GM TUBE ONE (10:02)
== END 2020-12-21 23:59 | disposition home or self-care (01) ==
LOC: WOU 08:55
PROVIDERS: ATTEND Podiatrist Foot & Ankle Surgery
DX: E11.52 Type 2 diabetes mellitus with diabetic peripheral angiopathy with gangrene (principal); I96 Gangrene, not elsewhere classified; E11.622 Type 2 diabetes mellitus with other skin ulcer; L97.512 Non-pressure chronic ulcer of other part of right foot with fat layer exposed; L97.515 Non-pressure chronic ulcer of other part of right foot with muscle involvement without evidence of necrosis; L97.113 Non-pressure chronic ulcer of right thigh with necrosis of muscle; L97.416 Non-pressure chronic ulcer of right heel and midfoot with bone involvement without evidence of necrosis; E11.42 Type 2 diabetes mellitus with diabetic polyneuropathy; Z79.4 Long term (current) use of insulin; Z79.82 Long term (current) use of aspirin
CPT/HCPCS: 11043; 11046; A6253

== ENCOUNTER 2020-12-25 10:20 | Outpatient (CLI) | payer MEDICARE, MEDICAID ==
[2020-12-25] MEDS ORDERED: MUPIROCIN 2% CREAM 15 GM TUBE TP ONE ×2 (10:24→10:25)
[2020-12-25] MEDS ORDERED: GENTAMICIN 0.1% CREAM 15 GM TUBE ONE ×2 (10:25)
[2020-12-25] MEDS ORDERED: LIDOCAINE SOLN 4% 50 ML BOTTLE ONE (10:27)
[2020-12-25] MEDS ORDERED: DAKINS HALF STRENGTH (0.25%) 480 ML BOTTLE ONE (10:37)
== END 2020-12-25 23:59 | disposition home or self-care (01) ==
LOC: WOU 10:20
PROVIDERS: ATTEND Podiatrist Foot & Ankle Surgery
DX: E11.52 Type 2 diabetes mellitus with diabetic peripheral angiopathy with gangrene (principal); I96 Gangrene, not elsewhere classified; E11.621 Type 2 diabetes mellitus with foot ulcer; L97.416 Non-pressure chronic ulcer of right heel and midfoot with bone involvement without evidence of necrosis; L97.513 Non-pressure chronic ulcer of other part of right foot with necrosis of muscle; L97.515 Non-pressure chronic ulcer of other part of right foot with muscle involvement without evidence of necrosis; L97.516 Non-pressure chronic ulcer of other part of right foot with bone involvement without evidence of necrosis; E11.42 Type 2 diabetes mellitus with diabetic polyneuropathy; Z79.4 Long term (current) use of insulin; Z79.82 Long term (current) use of aspirin
CPT/HCPCS: 11043; 11046; 87070; 87075; A6253

== ENCOUNTER 2020-12-26 08:40 | Outpatient (CLI) | payer MEDICARE, MEDICAID | END 2020-12-26 23:59 | disposition home or self-care (01) | LOC: VASLAB 08:40 | PROVIDERS: ATTEND Internal Medicine | DX: E11.621 Type 2 diabetes mellitus with foot ulcer (principal); L97.519 Non-pressure chronic ulcer of other part of right foot with unspecified severity; E11.22 Type 2 diabetes mellitus with diabetic chronic kidney disease; I12.0 Hypertensive chronic kidney disease with stage 5 chronic kidney disease or end stage renal disease; N18.6 End stage renal disease; Z99.2 Dependence on renal dialysis; Z79.84 Long term (current) use of oral hypoglycemic drugs; E78.5 Hyperlipidemia, unspecified; M79.671 Pain in right foot | CPT/HCPCS: G0463 ==

== ENCOUNTER 2020-12-28 09:00 | Outpatient (CLI) | payer MEDICARE, MEDICAID ==
[2020-12-28] MEDS ORDERED: GENTAMICIN 0.1% CREAM 15 GM TUBE ONE (09:09)
[2020-12-28] MEDS ORDERED: LIDOCAINE SOLN 4% 50 ML BOTTLE ONE (09:09)
[2020-12-28] MEDS ORDERED: MUPIROCIN 2% CREAM 15 GM TUBE TP ONE (09:09)
[2020-12-28] MEDS ORDERED: DAKINS HALF STRENGTH (0.25%) 480 ML BOTTLE ONE (09:10)
== END 2020-12-28 23:59 | disposition home or self-care (01) ==
LOC: WOU 09:00
PROVIDERS: ATTEND Podiatrist Foot & Ankle Surgery
DX: E11.621 Type 2 diabetes mellitus with foot ulcer (principal); L97.416 Non-pressure chronic ulcer of right heel and midfoot with bone involvement without evidence of necrosis; L97.513 Non-pressure chronic ulcer of other part of right foot with necrosis of muscle; L97.512 Non-pressure chronic ulcer of other part of right foot with fat layer exposed; L97.516 Non-pressure chronic ulcer of other part of right foot with bone involvement without evidence of necrosis; L97.515 Non-pressure chronic ulcer of other part of right foot with muscle involvement without evidence of necrosis; E11.52 Type 2 diabetes mellitus with diabetic peripheral angiopathy with gangrene; E11.42 Type 2 diabetes mellitus with diabetic polyneuropathy; E11.22 Type 2 diabetes mellitus with diabetic chronic kidney disease; I96 Gangrene, not elsewhere classified; N18.6 End stage renal disease; Z99.2 Dependence on renal dialysis; Z79.4 Long term (current) use of insulin; Z79.82 Long term (current) use of aspirin
CPT/HCPCS: 11043; 11044; 11046; 11047; A6253

== ENCOUNTER 2021-01-04 08:50 | Outpatient (CLI) | payer MEDICARE, MEDICAID ==
[2021-01-04] MEDS ORDERED: DAKINS HALF STRENGTH (0.25%) 480 ML BOTTLE ONE (08:55)
[2021-01-04] MEDS ORDERED: LIDOCAINE SOLN 4% 50 ML BOTTLE ONE (09:05)
[2021-01-04] MEDS ORDERED: MUPIROCIN 2% CREAM 15 GM TUBE TP ONE ×2 (09:34→09:35)
[2021-01-04] MEDS ORDERED: GENTAMICIN 0.1% CREAM 15 GM TUBE ONE (09:35)
== END 2021-01-04 23:59 | disposition home or self-care (01) ==
LOC: WOU 08:50
PROVIDERS: ATTEND Podiatrist Foot & Ankle Surgery
DX: E11.621 Type 2 diabetes mellitus with foot ulcer (principal); L97.416 Non-pressure chronic ulcer of right heel and midfoot with bone involvement without evidence of necrosis; L97.512 Non-pressure chronic ulcer of other part of right foot with fat layer exposed; L97.515 Non-pressure chronic ulcer of other part of right foot with muscle involvement without evidence of necrosis; L97.516 Non-pressure chronic ulcer of other part of right foot with bone involvement without evidence of necrosis; E11.42 Type 2 diabetes mellitus with diabetic polyneuropathy; E11.52 Type 2 diabetes mellitus with diabetic peripheral angiopathy with gangrene; I96 Gangrene, not elsewhere classified; E11.22 Type 2 diabetes mellitus with diabetic chronic kidney disease; N18.6 End stage renal disease; Z99.2 Dependence on renal dialysis; Z79.4 Long term (current) use of insulin
CPT/HCPCS: 11043; 11046; A6253

== ENCOUNTER 2021-01-18 09:15 | Outpatient (CLI) | payer MEDICARE, MEDICAID ==
[2021-01-18] MEDS ORDERED: LIDOCAINE SOLN 4% 50 ML BOTTLE ONE (09:23)
[2021-01-18] MEDS ORDERED: CLOTRIMAZOLE 1% 15 GM TUBE TP ONE (09:56)
[2021-01-18] MEDS ORDERED: MUPIROCIN 2% CREAM 15 GM TUBE TP ONE (09:57)
[2021-01-18] MEDS ORDERED: GENTAMICIN 0.1% CREAM 15 GM TUBE ONE (09:57)
== END 2021-01-18 23:59 | disposition home or self-care (01) ==
LOC: WOU 09:15
PROVIDERS: ATTEND Podiatrist Foot & Ankle Surgery
DX: E11.621 Type 2 diabetes mellitus with foot ulcer (principal); L97.416 Non-pressure chronic ulcer of right heel and midfoot with bone involvement without evidence of necrosis; L97.512 Non-pressure chronic ulcer of other part of right foot with fat layer exposed; L97.515 Non-pressure chronic ulcer of other part of right foot with muscle involvement without evidence of necrosis; L97.516 Non-pressure chronic ulcer of other part of right foot with bone involvement without evidence of necrosis; E11.42 Type 2 diabetes mellitus with diabetic polyneuropathy; E11.52 Type 2 diabetes mellitus with diabetic peripheral angiopathy with gangrene; I96 Gangrene, not elsewhere classified; Z79.4 Long term (current) use of insulin; Z79.82 Long term (current) use of aspirin
CPT/HCPCS: 11043; 11046; A6253

== ENCOUNTER 2021-01-25 09:25 | Outpatient (CLI) | payer MEDICARE, MEDICAID ==
[2021-01-25] MEDS ORDERED: GENTAMICIN 0.1% CREAM 15 GM TUBE ONE (10:05)
[2021-01-25] MEDS ORDERED: MUPIROCIN 2% CREAM 15 GM TUBE TP ONE (10:05)
== END 2021-01-25 23:59 | disposition home or self-care (01) ==
LOC: WOU 09:25
PROVIDERS: ATTEND Podiatrist Foot & Ankle Surgery
DX: E11.621 Type 2 diabetes mellitus with foot ulcer (principal); L97.416 Non-pressure chronic ulcer of right heel and midfoot with bone involvement without evidence of necrosis; L97.512 Non-pressure chronic ulcer of other part of right foot with fat layer exposed; L97.515 Non-pressure chronic ulcer of other part of right foot with muscle involvement without evidence of necrosis; L97.516 Non-pressure chronic ulcer of other part of right foot with bone involvement without evidence of necrosis; E11.42 Type 2 diabetes mellitus with diabetic polyneuropathy; E11.52 Type 2 diabetes mellitus with diabetic peripheral angiopathy with gangrene; I96 Gangrene, not elsewhere classified; E11.22 Type 2 diabetes mellitus with diabetic chronic kidney disease; N18.6 End stage renal disease; Z99.2 Dependence on renal dialysis; Z79.4 Long term (current) use of insulin
CPT/HCPCS: 11043

== ENCOUNTER 2021-02-01 09:28 | Outpatient (CLI) | payer MEDICARE, MEDICAID | END 2021-02-01 23:59 | disposition home or self-care (01) | LOC: WOU 09:28 | PROVIDERS: ATTEND Podiatrist Foot & Ankle Surgery | DX: E11.621 Type 2 diabetes mellitus with foot ulcer (principal); L97.416 Non-pressure chronic ulcer of right heel and midfoot with bone involvement without evidence of necrosis; L97.512 Non-pressure chronic ulcer of other part of right foot with fat layer exposed; L97.515 Non-pressure chronic ulcer of other part of right foot with muscle involvement without evidence of necrosis; L97.516 Non-pressure chronic ulcer of other part of right foot with bone involvement without evidence of necrosis; E11.42 Type 2 diabetes mellitus with diabetic polyneuropathy; E11.52 Type 2 diabetes mellitus with diabetic peripheral angiopathy with gangrene; I96 Gangrene, not elsewhere classified; Z79.4 Long term (current) use of insulin; Z79.82 Long term (current) use of aspirin | CPT/HCPCS: 11043; 97606-TC ==

== ENCOUNTER 2021-02-08 08:55 | Outpatient (CLI) | payer MEDICARE, MEDICAID ==
[2021-02-08] MEDS ORDERED: CLOTRIMAZOLE 1% 15 GM TUBE TP ONE (12:21)
[2021-02-08] MEDS ORDERED: GENTAMICIN 0.1% CREAM 15 GM TUBE ONE (12:21)
[2021-02-08] MEDS ORDERED: MUPIROCIN 2% CREAM 15 GM TUBE TP ONE (12:22)
[2021-02-08] MEDS ORDERED: BENZOIN COMPOUND TINCT 60 ML BOTTLE ONE (12:22)
== END 2021-02-08 23:59 | disposition home health service (06) ==
LOC: WOU 08:55
PROVIDERS: ATTEND Podiatrist Foot & Ankle Surgery
DX: E11.621 Type 2 diabetes mellitus with foot ulcer (principal); L97.416 Non-pressure chronic ulcer of right heel and midfoot with bone involvement without evidence of necrosis; L97.512 Non-pressure chronic ulcer of other part of right foot with fat layer exposed; L97.515 Non-pressure chronic ulcer of other part of right foot with muscle involvement without evidence of necrosis; L97.516 Non-pressure chronic ulcer of other part of right foot with bone involvement without evidence of necrosis; E11.52 Type 2 diabetes mellitus with diabetic peripheral angiopathy with gangrene; I96 Gangrene, not elsewhere classified; E11.42 Type 2 diabetes mellitus with diabetic polyneuropathy; E11.22 Type 2 diabetes mellitus with diabetic chronic kidney disease; N18.6 End stage renal disease; Z99.2 Dependence on renal dialysis; Z79.4 Long term (current) use of insulin; Z79.82 Long term (current) use of aspirin
CPT/HCPCS: 11043; 97606-TC

== ENCOUNTER 2021-02-15 09:30 | Outpatient (CLI) | payer MEDICARE, MEDICAID ==
[2021-02-15] MEDS ORDERED: MUPIROCIN 2% CREAM 15 GM TUBE TP ONE (10:34)
[2021-02-15] MEDS ORDERED: GENTAMICIN 0.1% CREAM 15 GM TUBE ONE (10:34)
[2021-02-15] MEDS ORDERED: BENZOIN COMPOUND TINCT 60 ML BOTTLE ONE (10:36)
== END 2021-02-15 23:59 | disposition home health service (06) ==
LOC: WOU 09:30
PROVIDERS: ATTEND Podiatrist Foot & Ankle Surgery
DX: E11.621 Type 2 diabetes mellitus with foot ulcer (principal); L97.416 Non-pressure chronic ulcer of right heel and midfoot with bone involvement without evidence of necrosis; L97.512 Non-pressure chronic ulcer of other part of right foot with fat layer exposed; L97.513 Non-pressure chronic ulcer of other part of right foot with necrosis of muscle; L97.516 Non-pressure chronic ulcer of other part of right foot with bone involvement without evidence of necrosis; E11.622 Type 2 diabetes mellitus with other skin ulcer; L97.318 Non-pressure chronic ulcer of right ankle with other specified severity; E11.52 Type 2 diabetes mellitus with diabetic peripheral angiopathy with gangrene; I96 Gangrene, not elsewhere classified; E11.42 Type 2 diabetes mellitus with diabetic polyneuropathy; Z79.4 Long term (current) use of insulin; Z79.82 Long term (current) use of aspirin
CPT/HCPCS: 11043; 97606-TC

== ENCOUNTER 2021-02-22 09:30 | Outpatient (CLI) | payer MEDICARE, MEDICAID ==
[2021-02-22] MEDS ORDERED: METF-440 PO (11:01)
[2021-02-22] MEDS ORDERED: ASPI-1169 PO (11:01)
[2021-02-22] MEDS ORDERED: INSU100C10 SQ (11:01)
[2021-02-22] MEDS ORDERED: CALC1TAB2 PO (11:01)
[2021-02-22] MEDS ORDERED: FOLI0.8T3 PO (11:01)
[2021-02-22] MEDS ORDERED: MECL-159 PO (11:01)
[2021-02-22] MEDS ORDERED: SEVE800T8 PO (11:01)
[2021-02-22] MEDS ORDERED: MUPI22OI2 TP (11:01)
[2021-02-22] MEDS ORDERED: GENT3.5O4 TP (11:01)
[2021-02-22] MEDS ORDERED: LACT1CAP25 PO (11:01)
[2021-02-22] MEDS ORDERED: INSU100V7 SQ (11:01)
[2021-02-22] MEDS ORDERED: GENTAMICIN OINT TP (14:41)
== END 2021-02-22 23:59 | disposition home or self-care (01) ==
LOC: WOU 09:30
PROVIDERS: ATTEND Podiatrist Foot & Ankle Surgery
DX: R41.82 Altered mental status, unspecified (principal); E11.621 Type 2 diabetes mellitus with foot ulcer; L97.414 Non-pressure chronic ulcer of right heel and midfoot with necrosis of bone; L97.514 Non-pressure chronic ulcer of other part of right foot with necrosis of bone; E11.52 Type 2 diabetes mellitus with diabetic peripheral angiopathy with gangrene; I96 Gangrene, not elsewhere classified; E11.42 Type 2 diabetes mellitus with diabetic polyneuropathy; E11.22 Type 2 diabetes mellitus with diabetic chronic kidney disease; N18.6 End stage renal disease; Z99.2 Dependence on renal dialysis; Z79.4 Long term (current) use of insulin; Z79.82 Long term (current) use of aspirin
CPT/HCPCS: G0463

== ENCOUNTER 2021-02-22 09:41 | Inpatient (IN) | payer MEDICARE, OTHER ==
[~2021-02-22] VITALS: Ht 157.5 cm; Wt 64.9 kg
[2021-02-22] VITALS (36 sets, daily range): BP systolic 78–155; BP diastolic 26–58
--- NOTE | 2021-02-22 09:56 | NUR ---
BIB Wound center staff with family Alessia "More altered than usual/weak. Per report the patient has not been eating since yesterday Dialysis M/W/F [id number] from wound clinic". Per family member Alessia, the patient`s last dialysis was today 02/22/21. Attached to the monitor. MD at the bedside. Will continue to monitor the patient.
[2021-02-22] MEDS ORDERED: IV NS 0.9% 1,000 ML BAG IV ONE ×2 (10:00→11:30)
[2021-02-22 10:16] LABS: BASOPHILS # (AUTO) 0.1 /CMM (0.0-0.2); BASOPHILS % (AUTO) 0.3 % (0.0-2.0); HEMATOCRIT 39 % (39-51); HEMOGLOBIN 11.7 g/dL (13.5-17.5); LYMPHOCYTES # (AUTO) 1.4 /CMM (0.8-4.8); LYMPHOCYTES % (AUTO) 4.3 % (20.0-44.0); MEAN CORPUSCULAR HGB CONC 30 g/dl (31.0-36.0); MEAN CORPUSCULAR VOLUME 87 fL (80-96); MONOCYTES # (AUTO) 1.5 /CMM (0.1-1.30); MONOCYTES % (AUTO) 4.5 % (2.0-12.0); NEUTROPHILS # (AUTO) 30.1 /CMM (1.8-8.9); NEUTROPHILS % (AUTO) 90.9 % (43.0-81.0); PLATELET COUNT (AUTO) 218 /CMM (150-450); RED BLOOD CELL COUNT(AUTO) 4.44 MIL/uL (4.5-6.0)
[2021-02-22 10:19] LABS: WHITE BLOOD COUNT (AUTO) 33.1 K/uL (4.3-11.0)
[2021-02-22 10:21] LABS: CALCIUM, SERUM 8.7 mg/dL (8.5-10.1); CARBON DIOXIDE 24 mmol/L (21-32); CHLORIDE 92 mmol/L (98-107); CREATININE 3.7 mg/dL (0.6-1.3); GLUCOSE 346 mg/dL (74-106); POTASSIUM 3.9 mmol/L (3.5-5.1); SODIUM SERUM 129 mmol/L (136-145); UREA NITROGEN, BLOOD 20 mg/dL (7-18)
[2021-02-22] MEDS ORDERED: VANCOMYCIN 0.75 GM in IV D5W 250 ML IV ONE (10:30)
[2021-02-22] MEDS ORDERED: PIPERACILLIN /TAZOBACTAM 3.375 G in IV D5W 50 ML IV ONE (10:30)
[2021-02-22 10:32] LABS: ALANINE AMINOTRANSFERASE 16 U/L (12-78); ALKALINE PHOSPHATASE 576 U/L (46-116); ASPARTATE AMINOTRANSFERASE 27 U/L (15-37); BILIRUBIN,DIRECT 0.5 mg/dL (0.0-0.2); BILIRUBIN,TOTAL 0.7 mg/dL (0.2-1.0); TOTAL PROTEIN, SERUM 6.8 g/dL (6.4-8.2)
[2021-02-22 10:33] LABS: ALBUMIN 1.2 g/dL (3.4-5.0)
--- NOTE | 2021-02-22 10:46 | NUR ---
DR LAZO IS MADE AWARE OF BLOOD PRESSURE OF 88/31.
[2021-02-22 10:59] LABS: BAND % (MANUAL) 9 % (0.0-5.0); LYMPHOCYTES % (MANUAL) 4 % (16-48); MONOCYTES % (MANUAL) 4 % (0-11.0); MYELOCYTES % 1 % (0-0); NEUTROPHILS % (MANUAL) 82 (42-76)
[2021-02-22] MEDS ORDERED: MECL-159 PO (11:01)
[2021-02-22] MEDS ORDERED: GENT3.5O4 TP (11:01)
[2021-02-22] MEDS ORDERED: FOLI0.8T3 PO (11:01)
[2021-02-22] MEDS ORDERED: SEVE800T8 PO (11:01)
[2021-02-22] MEDS ORDERED: LACT1CAP25 PO (11:01)
[2021-02-22] MEDS ORDERED: CALC1TAB2 PO (11:01)
[2021-02-22] MEDS ORDERED: METF-440 PO (11:01)
[2021-02-22] MEDS ORDERED: INSU100C10 SQ (11:01)
[2021-02-22] MEDS ORDERED: INSU100V7 SQ (11:01)
[2021-02-22] MEDS ORDERED: MUPI22OI2 TP (11:01)
[2021-02-22] MEDS ORDERED: ASPI-1169 PO (11:01)
[2021-02-22] MEDS ORDERED: NOREPINEPHRINE 8 MG in IV NS 0.9% 250 ML IV ONE (12:00)
--- NOTE | 2021-02-22 12:12 | NUR ---
WAITING FOR PHARACY TO DELIVER LEVOPHED.
--- NOTE | 2021-02-22 12:45 | NUR ---
started levophed drip per order: at 0.1 mcg/min at the rate of 11.01 ml/hr: the blood pressure is 88/43. will continue to monitor the patient
--- NOTE | 2021-02-22 12:45 | NUR ---
Matthew pablo in EDM - 02/22/21 at 1339 by LSARGSYAN started levophed drip per order: at 0.1 mcg/hr at the rate of 11.01 ml/hr: the blood pressure is 88/43. will continue to monitor the patient
--- NOTE | 2021-02-22 12:57 | NUR ---
LAB CALLED PT COVID RESULT NEGATIVE (-)
[2021-02-22] MEDS ORDERED: ONDANSETRON HCL/PF 4 MG/2 ML VIAL IVP PRN (13:00)
[2021-02-22] MEDS ORDERED: ACETAMINOPHEN 325 MG TABLET PO PRN (13:00)
[2021-02-22] MEDS ORDERED: NOREPINEPHRINE 8 MG in IV NS 0.9% 250 ML IV PRN (13:00)
[2021-02-22] MEDS ORDERED: DEXTROSE 50%-WATER 50 ML DISP.SYRIN IV PRN (13:00)
--- NOTE | 2021-02-22 13:20 | NUR ---
urine collected and sent to the lab
[2021-02-22 13:36] LABS: BILIRUBIN,URINE SMALL (NEGATIVE); COLOR,URINE DARK YELLOW (YELLOW); LEUKOCYTE ESTERASE ,URINE Negative (NEGATIVE); NITRITE, URINE Negative (NEGATIVE); PH,URINE 5.5 (5.0-8.0); PROTEIN,URINE >=300 mg/dl (NEGATIVE); UGLUCOSE 500 MG/DL mg/dL (NEGATIVE); UROBILINOGEN,URINE 0.2 EU/dL (0.2)
--- NOTE | 2021-02-22 13:45 | NUR ---
BED 258 ICU
[2021-02-22 13:47] LABS: BACTERIA,URINE Few /HPF (None Seen); SQUAMOUS EPITHELIAL CELL,UR Few /HPF (None Seen); WBC,URINE 0-2 /HPF (0-3)
--- NOTE | 2021-02-22 13:49 | NUR ---
PATIENT TAKEN TO CT IN STABLE CONDITION.
--- NOTE | 2021-02-22 13:56 | NUR ---
REPORT GIVEN TO NURSE WILMER
--- NOTE | 2021-02-22 13:57 | NUR ---
THE PATIENT IS BACK FROM CT
--- NOTE | 2021-02-22 14:08 | NUR ---
Levophen rate reduced from 0.1 mcg/min to 0.08 mcg/min due to blood pressure of 167/67. will continue to monitor the patient
--- NOTE | 2021-02-22 14:21 | NUR ---
Levophen rate reduced from 0.08 mcg/min to 0.06 mcg/min due to blood pressure of 159/65. will continue to monitor the patient
--- NOTE | 2021-02-22 14:21 | NUR ---
Matthew pablo in ED - 02/22/21 at 1426 by MARIO Levophen rate reduced from 0.1 mcg/min to 0.06 mcg/min due to blood pressure of 159/65. will continue to monitor the patient
--- NOTE | 2021-02-22 14:26 | NUR ---
Levophen rate 0.06 mcg/min and blood pressure is 133/33. the patient is in no apparent distress.
[2021-02-22] MEDS ORDERED: VANCOMYCIN 500 MG in IV D5W 100 ML IV PRN (14:30)
[2021-02-22] MEDS ORDERED: GENTAMICIN OINT TP (14:41)
--- NOTE | 2021-02-22 14:47 | NUR ---
the patient is transfered to icu in stable condition and per adali prolicflavia.
--- NOTE | 2021-02-22 14:50 | NUR ---
RN NOTES RECEIVED PT FROM ER IN ROOM 257, PT IS A/Ox3-4, ON 2L O2 N/C , O2 SAT WNL, ON TELE SR HR IN 80'S , PT RECEIVED ON LEVO AT .06 MCG/KG/MIN, FOR BP SUPPORT, CONTINUE TO TITRATE , R UPPER CHEST HD CATH AN R FEMORAL TLC , SITE CLEAN, DRY AND INTACT, PT HAS WOUND VAC ON HIS R FOOT , WOUND VAC REMOVED PER DR HAYDEN ORDER AND WET TO DRY DRESSING APPLIED , WOUND CONSULT ORDERED, WOUND PHOTO TAKEN AND PLACED IN THE CHART. SR UP x3 , CALL LIGHT WITHIN EASY REACH, BED LOCKED AND IN LOWEST POSITION, CONTINUE TO MONITOR
[2021-02-22] MEDS ORDERED: NOREPINEPHRINE 8 MG in IV NS 0.9% 242 ML IV PRN (16:00)
[2021-02-22] MEDS: ACIDOPHILUS/BULGARICUS 1 EACH TAB.CHEW PO SCH (16:33)
[2021-02-22] MEDS ORDERED: METFORMIN 500 MG TABLET PO SCH ×3 (17:00→22:00)
[2021-02-22] MEDS ORDERED: Medication Not On Formulary EA (Sitagliptin Phos/Metformin Hcl (Janumet 50-1,000 Mg Tabl PO SCH (17:00)
--- NOTE | 2021-02-22 17:00 | NUR ---
RN NOTES PROPRIETARY TRADER NOTIFIED REGARDING PROCALCITONIN = 5.44, NO NEW ORDER GIVEN .
[2021-02-22] MEDS: INSULIN REGULAR, HUMAN 100 UNIT/ML 3 ML VIAL SQ PRN ×2 (17:21→21:51)
[2021-02-22] MEDS: INSULIN LISPRO/ASPART 100 UNIT/ML CARTRIDGE SQ SCH (17:22)
[2021-02-22] MEDS: BLOOD SUGAR DIAGNOSTIC 1 EACH STRIP IN SCH ×2 (17:22→21:52)
[2021-02-22] MEDS ORDERED: PIPERACILLIN /TAZOBACTAM 3.375 G in IV D5W 50 ML IV SCH (18:00)
--- NOTE | 2021-02-22 18:23 | NUR ---
RN NOTES PT BACK ON LEVO AT .02 MCG/KG/MIN FOR BP SUPPORT, PT WAKES UP TO VERBAL STIMULI, LETHARGIC AT TIMES, REMANIS NPO AT THIS TIME, SR UP x3, CALL LIGHT WITHIN EASY REACH, BED LOCKED AND IN LOWEST POSITION, WILL ENDORSE TO PHARMACY SALES ASSISTANT NURSE FOR CONTINUITY OF CARE .
[2021-02-22] MEDS ORDERED: IV NS 0.9% 500 ML IV ONE (19:30)
[2021-02-22] MEDS ORDERED: ALBUMIN 5% 12.5 GM in PREMIX 1 EA IV ONE (20:00)
--- NOTE | 2021-02-22 20:00 | NUR ---
Received patient resting in no acute distress .Respiration even and unlabored with O2 2LNC spo2 98%-100%.vs stable.SR per tele monitoring.Patient on Levophed gtt for BP support and will titrate accordingly.NPO status will monitor blood sugar as ordered.Anuric on HD MWF.Right CW HD cath intact.Right femoral TLC intact flushing well with good blood return.Turned and repositioned.Continue monitoring.
--- NOTE | 2021-02-22 20:00 | NUR ---
VS stable.Levophed gtt titrated off.Will continue to monitor.NAD noted.Turned and repositioned. Addendum: 02/23/21 at 0433 by VINICIUS CHÁVEZ RN 2200 Levophed titrated off.
[2021-02-22] MEDS: IV NS 0.9% 250 ML IV PRN (20:30)
[2021-02-22] MEDS ORDERED: PIPERACILLIN /TAZOBACTAM 2.25 G in IV D5W 50 ML IV SCH (21:00)
[2021-02-22] MEDS: MEROPENEM 500 MG in IV NS 0.9% 50 ML IV SCH (21:15)
[2021-02-22] MEDS: INSULIN GLARGINE, 100 UNIT/ML CARTRIDGE SQ SCH (21:49)
[2021-02-22] MEDS: LINAGLIPTIN 5 MG TABLET PO SCH (21:53)
[2021-02-23] VITALS (41 sets, daily range): BP systolic 102–169; BP diastolic 25–79
--- NOTE | 2021-02-23 04:00 | NUR ---
Incontinent of stool perineal care done.Bed bath done.Wound care done.Turned and repositioned. Patient verbalized comfort.
[2021-02-23 04:53] LABS: BASOPHILS # (AUTO) 0.1 /CMM (0.0-0.2); BASOPHILS % (AUTO) 0.3 % (0.0-2.0); EOSINOPHILS % (AUTO) 0.2 % (0.0-6.0); HEMATOCRIT 33 % (39-51); LYMPHOCYTES # (AUTO) 1.6 /CMM (0.8-4.8); LYMPHOCYTES % (AUTO) 7.5 % (20.0-44.0); MEAN CORPUSCULAR HGB CONC 31 g/dl (31.0-36.0); MEAN CORPUSCULAR VOLUME 86 fL (80-96); MONOCYTES # (AUTO) 1.6 /CMM (0.1-1.30); MONOCYTES % (AUTO) 7.7 % (2.0-12.0); NEUTROPHILS # (AUTO) 17.8 /CMM (1.8-8.9); NEUTROPHILS % (AUTO) 84.3 % (43.0-81.0); PLATELET COUNT (AUTO) 187 /CMM (150-450); RED BLOOD CELL COUNT(AUTO) 3.77 MIL/uL (4.5-6.0); WHITE BLOOD COUNT (AUTO) 21.2 K/uL (4.3-11.0)
[2021-02-23 05:13] LABS: THYROID STIMULATING HORMONE 7.731 uIU/mL (0.358-3.74)
[2021-02-23 05:15] LABS: BILIRUBIN,TOTAL 0.5 mg/dL (0.2-1.0); CREATININE 3.9 mg/dL (0.6-1.3); MAGNESIUM 1.8 mg/dL (1.8-2.4); PHOSPHORUS 3.4 mg/dL (2.5-4.9); POTASSIUM 3.6 mmol/L (3.5-5.1); TOTAL PROTEIN, SERUM 5.9 g/dL (6.4-8.2)
[2021-02-23 05:27] LABS: ALBUMIN 1.3 g/dL (3.4-5.0)
--- NOTE | 2021-02-23 06:30 | NUR ---
Patient resting vs remains stable.SR.Denies any discomfort.For wound consult,Dietary consult and needs Echo.Will endorse to day shift for further care and management.No acute distress noted.Turned and repositioned.
--- NOTE | 2021-02-23 07:06 | NUR ---
RN NOTES RECEIVED PT ON BED, OPENS EYES TO VERBAL STIMULI, DRAWZY , ON 2L O2 N/C , NO SOB NOTED, ON TELE SR HR IN 70'S , KEPT NPO PER MD ORDER, R FEMORAL TLC SITE CLEAN, DRY AND INTACT , DRESSING TO RIGHT FOOT CLEAN DRY AND INTACT, PT OFF LEVO , BP STABLE AT THIS TIME, SR UP x3, CALL LIGHT WITHIN EASY REACH , BED LOCKED AND IN LOWEST POSITION, CONTINUE TO MONITOR .
[2021-02-23] MEDS: BLOOD SUGAR DIAGNOSTIC 1 EACH STRIP IN SCH ×4 (08:17→22:02)
[2021-02-23] MEDS: SEVELAMER CARBONATE 800 MG TABLET PO SCH (08:18)
[2021-02-23] MEDS: MEROPENEM 500 MG in IV NS 0.9% 50 ML IV SCH ×2 (08:18→21:00)
[2021-02-23] MEDS: PANTOPRAZOLE 40 MG VIAL IV SCH (08:18)
[2021-02-23] MEDS: ACIDOPHILUS/BULGARICUS 1 EACH TAB.CHEW PO SCH ×2 (08:18→16:28)
[2021-02-23] MEDS: LISINOPRIL (10MG) 10 MG TABLET PO SCH (08:19)
[2021-02-23] MEDS: MUPIROCIN OINT 2% 22 GM TUBE TP SCH (08:20)
[2021-02-23] MEDS: FOLIC ACID 1 MG TABLET PO SCH (08:20)
[2021-02-23] MEDS: GENTAMICIN 0.1% OINT 15 GM TUBE TP SCH (08:20)
[2021-02-23] MEDS: ASPIRIN 81 MG TAB.CHEW PO SCH (08:20)
[2021-02-23] MEDS: MECLIZINE HCL 25 MG TABLET PO SCH (08:21)
[2021-02-23] MEDS: INSULIN LISPRO/ASPART 100 UNIT/ML CARTRIDGE SQ SCH ×2 (08:21→17:38)
[2021-02-23] MEDS: CALCIUM CARB 600MG /VIT D 1 EACH TABLET PO SCH (08:21)
--- NOTE | 2021-02-23 08:23 | NUR ---
RN NOTES BG =51, REPEAT IS 57, PT IS ALERT AND RESPONDING TO VERBAL STIMULI, FOLLOWS COMMAND , NO SIGN AND SYMPTOMS OF HYPOGLYCEMIA NOTED, APPLE JUICE GIVEN , BLOOD GLUCOSE RECHECK IS 84. CONTINUE TO MONITOR
--- NOTE | 2021-02-23 09:30 | NUR ---
RN NOTES ID (JENNY SHINE ) NOTIFED REGARDING GRAM POSITIVE COCCI IN BLOOD CULTURE RESULTS , NO NEW ORDER GIVEN , CONTINUE TO MONITOR .
--- NOTE | 2021-02-23 12:00 | NUR ---
RN NOTES PT RESTING , NO DISTRESS NOTED , FAMILY AT THE BEDSIDE , CONTINUE TO MONITOR .
--- NOTE | 2021-02-23 16:00 | NUR ---
RN NOTES TELEPHONE CONSENT RECEIVED FROM PT SON FOR R BKA SURGERY IN AM .
[2021-02-23] MEDS: INSULIN REGULAR, HUMAN 100 UNIT/ML 3 ML VIAL SQ PRN (17:04)
--- NOTE | 2021-02-23 17:40 | NUR ---
RN NOTES PT REFUSED TO EAT DINNER , HUMALOG/NOVOLOG 8 UNITS HELD AT THIS TIME .
--- NOTE | 2021-02-23 18:15 | NUR ---
RN NOTES PT RESTING IN BED, NO SIGNIFICANT CHANGES NOTED ON THIS SHIFT, NPO PAST MN FOR BKA SURGERY IN AM, WILL ENDORSE TO [employer] DEMONSTRATOR NURSE FOR CONTINUITY OF CARE .
--- NOTE | 2021-02-23 20:00 | NUR ---
Received patient resting in no acute distress.VS stable.SR per tele monitoring.Denies any discomfort. Maintained on 2LNC O2 spo2 99%-100%.Right upper chest HD cath intact.Right femoral TLC intact with NS infusing at TKO.Turned and repositioned.Patient for R BKA in AM.Consents signed.
[2021-02-23] MEDS: INSULIN GLARGINE, 100 UNIT/ML CARTRIDGE SQ SCH (22:00)
[2021-02-23] MEDS: LINAGLIPTIN 5 MG TABLET PO SCH (22:00)
--- NOTE | 2021-02-23 22:04 | NUR ---
Patient awake offered juice and water but refused.Blood sugar checked 154.Due DM medications not administered.Patient NPO post MN for surgery in am.
[2021-02-24] VITALS (47 sets, daily range): BP systolic 61–154; BP diastolic 33–98
--- NOTE | 2021-02-24 | NUR ---
Patient awake vs remains stable.Bathed and complete linens changed turned and repositioned. NPO post MN instructed for surgery in AM.Verbalized understanding.
[2021-02-24] MEDS: IV NS 0.9% 250 ML IV PRN (02:09)
[2021-02-24 04:43] LABS: BASOPHILS # (AUTO) 0.1 /CMM (0.0-0.2); BASOPHILS % (AUTO) 0.7 % (0.0-2.0); EOSINOPHILS % (AUTO) 0.2 % (0.0-6.0); HEMATOCRIT 35 % (39-51); HEMOGLOBIN 10.9 g/dL (13.5-17.5); LYMPHOCYTES # (AUTO) 1.7 /CMM (0.8-4.8); LYMPHOCYTES % (AUTO) 10.1 % (20.0-44.0); MEAN CORPUSCULAR HGB CONC 31 g/dl (31.0-36.0); MEAN CORPUSCULAR VOLUME 86 fL (80-96); MONOCYTES % (AUTO) 6.1 % (2.0-12.0); NEUTROPHILS # (AUTO) 14.1 /CMM (1.8-8.9); NEUTROPHILS % (AUTO) 82.9 % (43.0-81.0); PLATELET COUNT (AUTO) 191 /CMM (150-450)
[2021-02-24 05:03] LABS: BILIRUBIN,TOTAL 0.4 mg/dL (0.2-1.0); CALCIUM, SERUM 7.9 mg/dL (8.5-10.1); CREATININE 4.4 mg/dL (0.6-1.3); MAGNESIUM 1.9 mg/dL (1.8-2.4); PHOSPHORUS 2.8 mg/dL (2.5-4.9); POTASSIUM 3.8 mmol/L (3.5-5.1); TOTAL PROTEIN, SERUM 6.2 g/dL (6.4-8.2)
[2021-02-24 05:07] LABS: ALBUMIN 1.1 g/dL (3.4-5.0)
--- NOTE | 2021-02-24 05:30 | NUR ---
Patient resting vs stable.No significant change noted during the shift.Pre-op check list initiated. NAD noted.Kept comfortable.Safety maintained.Call light at bedside.
--- NOTE | 2021-02-24 06:30 | NUR ---
Patient AM Labs resulted Albumin 1.1 Meagan DAVEY pagedayana not responded.Will endorse to day shift for further care and management.
--- NOTE | 2021-02-24 07:03 | NUR ---
0645 HD started by [facility] and blood culture with HD collected by same given to lab.
[2021-02-24] MEDS: PANTOPRAZOLE 40 MG VIAL IV SCH (08:30)
[2021-02-24] MEDS: ASPIRIN 81 MG TAB.CHEW PO SCH (08:30)
[2021-02-24] MEDS: MECLIZINE HCL 25 MG TABLET PO SCH (08:30)
[2021-02-24] MEDS: MEROPENEM 500 MG in IV NS 0.9% 50 ML IV SCH ×3 (08:30→20:14)
[2021-02-24] MEDS: ACIDOPHILUS/BULGARICUS 1 EACH TAB.CHEW PO SCH ×2 (08:31→17:16)
[2021-02-24] MEDS: FOLIC ACID 1 MG TABLET PO SCH (08:31)
[2021-02-24] MEDS: CALCIUM CARB 600MG /VIT D 1 EACH TABLET PO SCH (08:31)
[2021-02-24] MEDS: SEVELAMER CARBONATE 800 MG TABLET PO SCH (08:32)
[2021-02-24] MEDS: LISINOPRIL (10MG) 10 MG TABLET PO SCH (08:32)
[2021-02-24] MEDS: INSULIN LISPRO/ASPART 100 UNIT/ML CARTRIDGE SQ SCH ×2 (08:32→17:17)
[2021-02-24] MEDS: GENTAMICIN 0.1% OINT 15 GM TUBE TP SCH (08:33)
[2021-02-24] MEDS: MUPIROCIN OINT 2% 22 GM TUBE TP SCH (08:34)
[2021-02-24] MEDS ORDERED: ANESTHESIA TRAY IN PYXIS 1 EA TRAY MC ONE (08:41)
[2021-02-24] MEDS ORDERED: BACITRACIN 50000 UNITS/VIAL ONE (08:41)
[2021-02-24] MEDS ORDERED: BUPIVACAINE 0.5 % PF 150 MG/30 ML VIAL ONE (08:42)
[2021-02-24] MEDS: BLOOD SUGAR DIAGNOSTIC 1 EACH STRIP IN SCH ×4 (08:44→21:35)
[2021-02-24] MEDS ORDERED: FENTANYL PF 100MCG/2ML AMPUL ONE (08:57)
[2021-02-24] MEDS ORDERED: HYDROMORPHONE INJ 2 MG/ML DISP.SYRIN ONE (08:58)
[2021-02-24] MEDS ORDERED: ROCURONIUM BROMIDE 50 MG/5 ML ONE (09:11)
[2021-02-24] MEDS ORDERED: MORPHINE SULFATE INJ 4 MG/ML DISP.SYRIN IV PRN (12:00)
[2021-02-24] MEDS ORDERED: PHENYLEPHRINE 100 MG in IV NS 0.9% 240 ML IV PRN (12:30)
[2021-02-24] MEDS: IV D5/0.45 NACL W/20 MEQ KCL 1L IV SCH ×2 (13:28→22:04)
[2021-02-24] MEDS: INSULIN REGULAR, HUMAN 100 UNIT/ML 3 ML VIAL SQ PRN ×2 (17:23→21:35)
[2021-02-24] MEDS: HYDROCODONE/APAP 10/325MG TABLET PO PRN ×2 (17:27→21:29)
--- NOTE | 2021-02-24 20:03 | NUR ---
RN NOTE PATIENT ALERT AND ORIENTED X2-3, ABLE TO MAKE NEEDS KNOWN. ON O2 2L VIA NASAL CANNULA, O2 SAT 98%. NO S/S OF DISTRESS. COMPLAINED OF MODERATE PAIN ON RIGHT LOWER EXTREMITY, S/P RIGHT BKA, WILL ADMINISTER DUE PRN MEDS. NON-PHARMACOLOGICAL INTERVENTIONS RENDERED. DRESSING IS DRY AND INTACT. NO S/S OF ANY BLEEDING. NOTED WITH RIGHT CHEST WALL HD AND RIGHT FEMORAL TLC RUNNING IVF. NO S/S OF INFILTRATION. BED LOCKED AND IN LOWEST POSITION. CALL LIGHT WITHIN REACH. ALL NEEDS ANTICIPATED.
[2021-02-24] MEDS: LINAGLIPTIN 5 MG TABLET PO SCH (21:26)
--- NOTE | 2021-02-24 21:35 | NUR ---
PATIENT COMPLAINING MODERATE 5/10 PAIN ON RIGHT BKA, AND REQUESTING FOR NORCO TAB. ADMINISTERED NORCO 5/325 MG ORDERED, WILL REASSESS PAIN LEVEL. BLOOD SUGAR 114, NO INSULIN COVERAGE GIVEN PER MD ORDER. ALL NEEDS ANTICIPATED.
[2021-02-24] MEDS: INSULIN GLARGINE, 100 UNIT/ML CARTRIDGE SQ SCH (21:38)
--- NOTE | 2021-02-24 22:35 | NUR ---
PATIENT STATED WITH RELIEF AFTER ADMINISTRATION OF NORCO. PATIENT RESTING COMFORTABLY.
[2021-02-25] VITALS (24 sets, daily range): BP systolic 75–193; BP diastolic 37–137
[2021-02-25] MEDS: HYDROCODONE/APAP 10/325MG TABLET PO PRN ×3 (02:52→12:22)
--- NOTE | 2021-02-25 02:52 | NUR ---
OFFERED PATIENT TO CLEAN AND ASSIST WITH ADL'S, CHANGE LINENS AND REFUSED. PATIENT REMAINS DRY AT THIS TIME. REQUESTED FOR NORCO 5/325MG FOR 510 RIGHT BKA. ADMINISTERED ORDERED. ALL NEEDS ANTICIPATED.
--- NOTE | 2021-02-25 03:52 | NUR ---
PATIENT PAIN LEVEL 3/10 TOLERABLE PAIN. PATIENT RESTING COMFORTABLY.
[2021-02-25 04:44] LABS: BASOPHILS # (AUTO) 0.1 /CMM (0.0-0.2); BASOPHILS % (AUTO) 0.4 % (0.0-2.0); EOSINOPHILS % (AUTO) 0.3 % (0.0-6.0); HEMATOCRIT 31 % (39-51); HEMOGLOBIN 9.6 g/dL (13.5-17.5); LYMPHOCYTES # (AUTO) 1.5 /CMM (0.8-4.8); LYMPHOCYTES % (AUTO) 8.9 % (20.0-44.0); MEAN CORPUSCULAR HGB CONC 31 g/dl (31.0-36.0); MEAN CORPUSCULAR VOLUME 87 fL (80-96); MONOCYTES # (AUTO) 0.9 /CMM (0.1-1.30); MONOCYTES % (AUTO) 5.3 % (2.0-12.0); NEUTROPHILS % (AUTO) 85.1 % (43.0-81.0); PLATELET COUNT (AUTO) 147 /CMM (150-450); RED BLOOD CELL COUNT(AUTO) 3.51 MIL/uL (4.5-6.0); WHITE BLOOD COUNT (AUTO) 16.5 K/uL (4.3-11.0)
--- NOTE | 2021-02-25 04:59 | NUR ---
OFFERRED PATIENT BED BATH AND TO CHANGE LINENS, STILL STRONGLY REFUSED. PATIENT REMAINS DRY. ALL NEEDS ANTICIPATED.
[2021-02-25 05:22] LABS: ALBUMIN 1.5 g/dL (3.4-5.0); BILIRUBIN,TOTAL 1.5 mg/dL (0.2-1.0); CALCIUM, SERUM 7.6 mg/dL (8.5-10.1); CREATININE 3.6 mg/dL (0.6-1.3); MAGNESIUM 1.7 mg/dL (1.8-2.4); PHOSPHORUS 3.5 mg/dL (2.5-4.9); POTASSIUM 3.8 mmol/L (3.5-5.1); TOTAL PROTEIN, SERUM 5.7 g/dL (6.4-8.2)
--- NOTE | 2021-02-25 06:56 | NUR ---
RN NOTE PATIENT ALERT AND ORIENTED X2-3, ON O2 2L VIA NASAL CANNULA, O2 SAT 98%. NO SIGNS OF RESPIRATORY DISTRESS. S/P BKA DRESSING DRY AND INTACT. NO S/S OF ANY BLEEDING. NOTED WITH RIGHT CHEST WALL HD AND RIGHT FEMORAL TLC RUNNING IVF. NO S/S OF INFILTRATION. OFFERED PATIENT TO CHANGE LINENS AGAIN, STILL STRONGLY REFUSED. PATIENT REMAINS DRY. BED LOCKED AND IN LOWEST POSITION. CALL LIGHT WITHIN REACH. WILL ENDORSE TO AM SHIFT.
[2021-02-25] MEDS: BLOOD SUGAR DIAGNOSTIC 1 EACH STRIP IN SCH ×4 (07:30→22:14)
--- NOTE | 2021-02-25 07:30 | NUR ---
RN OPENING NOTE PT A/O X2-3, ON O2 2L NC, SPO2 SAT 98%. NO SIGNS OF RESPIRATORY DISTRESS OR SOB. S/P BKA DRESSING CLEAN, DRY AND INTACT. NO S/S OF ANY BLEEDING. PT RIGHT CHEST WALL HD AND RIGHT FEMORAL TLC RUNNING D5 1/2 NS KCL 20 MEQ @ 100 ML/HR. NO S/S OF INFILTRATION/INFECTION, RT FEMORAL TLC FLUSHED AND PATENT. PT STATES 4/10 PAIN WHEN CHANGING POSITIONS, NORCO WAS GIVEN AY 0650, PT REFUSES MORPHINE, WILL ADMIN NORCO ORDERED. ALL PT SAFETY PRECAUTIONS IN PLACE. BED LOCKED AND IN LOWEST POSITION. CALL LIGHT WITHIN REACH. SR UP x2. WILL CONT TO MONITOR
[2021-02-25] MEDS: IV D5/0.45 NACL W/20 MEQ KCL 1L IV SCH ×2 (08:30→17:54)
[2021-02-25] MEDS: MEROPENEM 500 MG in IV NS 0.9% 50 ML IV SCH ×2 (08:31→22:14)
[2021-02-25] MEDS: MECLIZINE HCL 25 MG TABLET PO SCH (08:31)
[2021-02-25] MEDS: SEVELAMER CARBONATE 800 MG TABLET PO SCH (08:31)
[2021-02-25] MEDS: FOLIC ACID 1 MG TABLET PO SCH (08:32)
[2021-02-25] MEDS: LISINOPRIL (10MG) 10 MG TABLET PO SCH (08:32)
[2021-02-25] MEDS: ACIDOPHILUS/BULGARICUS 1 EACH TAB.CHEW PO SCH ×2 (08:32→16:45)
[2021-02-25] MEDS: PANTOPRAZOLE 40 MG VIAL IV SCH (08:32)
[2021-02-25] MEDS: ASPIRIN 81 MG TAB.CHEW PO SCH (08:32)
[2021-02-25] MEDS: CALCIUM CARB 600MG /VIT D 1 EACH TABLET PO SCH (08:32)
--- NOTE | 2021-02-25 08:35 | NUR ---
WOUND CARE CONSULT: PT PRESENTS WITH SCARRING TO LEFT HEEL AND SACRUM. PT HAD RT BELOW KNEE AMPUTATION YESTERDAY PER REPORT. SURGICAL DRESSING IS DRY AND INTACT. DEFER TO SURGICAL TEAM AND PODIATRY FOR LOWER EXTREMTIES. RECOMMENDATIONS MADE FOR SKIN PROTECTION. DISCUSSED WITH NURSING STAFF. MD IN AGREEMENT WITH PLAN OF CARE.
--- NOTE | 2021-02-25 08:44 | NUR ---
WOUND CARE ADDITIONAL NOTE: NURSING STAFF CALLED FAMILY MEMBER TO CONFIRM THAT PT'S HOME WOUND VAC UNIT WAS SENT HOME AFTER PT WAS ADMITTED.
[2021-02-25] MEDS: INSULIN LISPRO/ASPART 100 UNIT/ML CARTRIDGE SQ SCH ×2 (09:00→18:30)
[2021-02-25] MEDS ORDERED: Z GUARD REMEDY 2 OZ OINT TP PRN (09:00)
--- NOTE | 2021-02-25 09:15 | NUR ---
RN NOTE PER DR SHAIKH, OKAY TO HOLD INSULIN REGULAR AND LISPRO FOR NOW PT DID NOT EAT ANYTHING AND TENDS TO RUN LOW BG IN RECENT PAST. WILL MONITOR
[2021-02-25] MEDS ORDERED: NEPRO VAN 237 ML CAN PO PRN (12:00)
[2021-02-25] MEDS: INSULIN REGULAR, HUMAN 100 UNIT/ML 3 ML VIAL SQ PRN ×2 (12:18→22:19)
[2021-02-25] MEDS ORDERED: VANCOMYCIN 500 MG in IV D5W 100 ML IV ONE (15:00)
--- NOTE | 2021-02-25 18:10 | NUR ---
RN NOTE PT TRANSFERRED TO [facility], TELE STATUS, IN STABLE CONDITION, BREATHING RA WITH NO S/S OF RESP DISTRESS OR SOB, SPO2 96%. ALL PT SAFETY PRECAUTIONS IN PLACE. PT REPORT GIVEN TO JARRED LORENZ FOR JUAN MANUEL
--- NOTE | 2021-02-25 18:38 | NUR ---
PLANT CONTROL AIDE NOTE PT TRANSFERRED FROM ICU 257, PT A/O X2-3, ON O2 2L NC, SPO2 SAT 96%. NO SIGNS OF RESPIRATORY DISTRESS OR SOB. S/P BKA 02/24, DRESSING CLEAN, DRY AND INTACT. NO S/S OF ANY BLEEDING. PT RIGHT CHEST WALL HD AND RIGHT FEMORAL TLC RUNNING D5 1/2 NS KCL 20 MEQ @ 100 ML/HR. SITE CLEAR. PT STATES 4/10 PAIN WHEN CHANGING POSITIONS, ON PAIN MANAGEMENT, PT REFUSES MORPHINE, RENAL STD DIET. ALL PT SAFETY PRECAUTIONS IN PLACE. BED LOCKED AND IN LOWEST POSITION. CALL LIGHT WITHIN REACH. SR UP x2. WILL CONT TO MONITOR. INSULIN LISPRO 8 UNITS NOT GIVEN DUE TO BLOOD SUGAR GOES DOWN, PATIENT PER ICU NURSE WITH POOR ORAL INTAKE. BLOOD SUGAR HAS BEEN LOW SINCE THIS MORNING.
--- NOTE | 2021-02-25 19:00 | NUR ---
RN NOTES ALL NEEDS MET. PT RESTING COMFORTABLY. WILL ENDORSE TO NEXT SHIFT FOR JUAN MANUEL,
--- NOTE | 2021-02-25 19:10 | NUR ---
RN NOTE CAMBODIAN SPEAKING PT BROUGHT UP AT 1850 FROM ED FOR FALL AND HEADACHE, CURRENTLY SVT HR 153. PT A/Ox3, BREATHING RA SPO2 95%. PT HAS SMALL CUT ON LEFT PARIETAL ASPECT OF HEAD, NOT BLEEDING AT THE MOMENT. PT DENIES PAIN. PT IV ACCESS: LAC, LFA, LT EJ #20, AND RAC, ALL FLUSHED AND PATENT. ALL PT SAFETY PRECAUTIONS IN PLACE, JUAN MANUEL ENDORSED TO ASSISTANT OFFICE MANAGER RN Addendum: 02/26/21 at 0907 by EDER SCHAEFER RN CORRECTION, CHARTED ON WRONG PT
[2021-02-25] MEDS: LINAGLIPTIN 5 MG TABLET PO SCH (22:14)
[2021-02-25] MEDS: INSULIN GLARGINE, 100 UNIT/ML CARTRIDGE SQ SCH (22:20)
[2021-02-26] VITALS: BP 127/65
[2021-02-26] MEDS: IV D5/0.45 NACL W/20 MEQ KCL 1L IV SCH ×2 (03:48→15:12)
[2021-02-26 04:00] VITALS: BP 151/68
--- NOTE | 2021-02-26 06:45 | NUR ---
SOFT TILE SETTER NOTE PT IN BED AWAKE. NO DISTRESS OR DISCOMFORT NOTED. DENIES PAIN. IVF INFUSING WELL, NO S/S OF INFILTRATION NOTED. KEPT HIM DRY AND CLEAN. ALL NEEDS ATTENDED. ON TELE SR HR 90. WILL ENDORSE TO DAY SHIFT NURSE FOR CONTINUE TO CARE.
[2021-02-26] MEDS: PANTOPRAZOLE 40 MG TABLET.DR PO SCH (07:30)
[2021-02-26] MEDS: BLOOD SUGAR DIAGNOSTIC 1 EACH STRIP IN SCH ×4 (07:30→22:08)
--- NOTE | 2021-02-26 07:30 | NUR ---
rn note patient is in bed with hob at semi fowlers position. patient is aox3. on room air with no signs of labored breathing. right femoral tlc is patent and intact. bed is locked in the lowest position, 3 guard rails raised, call godfrey within reach, and all hospital safety precautions are being followed. will continue to monitor throughout shift.
[2021-02-26 08:00] VITALS: BP 144/50
--- NOTE | 2021-02-26 08:00 | NUR ---
rn note patient removed rac iv access.
[2021-02-26] MEDS: LISINOPRIL (10MG) 10 MG TABLET PO SCH (08:55)
[2021-02-26] MEDS: MECLIZINE HCL 25 MG TABLET PO SCH (09:00)
[2021-02-26] MEDS: MEROPENEM 500 MG in IV NS 0.9% 50 ML IV SCH (09:00)
[2021-02-26] MEDS: INSULIN LISPRO/ASPART 100 UNIT/ML CARTRIDGE SQ SCH ×2 (09:00→18:12)
[2021-02-26] MEDS: CALCIUM CARB 600MG /VIT D 1 EACH TABLET PO SCH (09:00)
[2021-02-26] MEDS: SEVELAMER CARBONATE 800 MG TABLET PO SCH (09:00)
[2021-02-26] MEDS: FOLIC ACID 1 MG TABLET PO SCH (09:00)
[2021-02-26] MEDS: ACIDOPHILUS/BULGARICUS 1 EACH TAB.CHEW PO SCH ×2 (09:00→17:00)
[2021-02-26] MEDS: ASPIRIN 81 MG TAB.CHEW PO SCH (09:00)
--- NOTE | 2021-02-26 09:01 | NUR ---
RN NOTE PATIENT IS REFUSING ALL AM MEDS. EXCEPT FOR LISINOPRIL. PATIENT STATING HE WANTS TO SPEAK TO FAMILY. ATTEMPTED TO CONTACT NEXT OF KIN X2 WITH NO ANSWER. EDUCATED PATIENT ON IMPORTANCE OF MEDICATION ADHERENCE. PATIENT STILL REFUSED.
--- NOTE | 2021-02-26 09:04 | NUR ---
RN NOTE NOT ADMINISTERING HUMALOG FOR BLOOD SUGAR OF 82.
[2021-02-26 12:00] VITALS: BP 132/72
--- NOTE | 2021-02-26 13:00 | NUR ---
rn note hold antibiotic until after completion of dialysis per request of dialysis nurse.
[2021-02-26] MEDS: AMPICILLIN 1 GM in IV NS 0.9% 50 ML IV SCH ×3 (13:36→20:58)
[2021-02-26 14:38] LABS: BASOPHILS # (AUTO) 0.1 /CMM (0.0-0.2); BASOPHILS % (AUTO) 0.5 % (0.0-2.0); EOSINOPHILS % (AUTO) 0.7 % (0.0-6.0); HEMATOCRIT 31 % (39-51); HEMOGLOBIN 9.5 g/dL (13.5-17.5); LYMPHOCYTES # (AUTO) 1.3 /CMM (0.8-4.8); MEAN CORPUSCULAR HGB CONC 31 g/dl (31.0-36.0); MEAN CORPUSCULAR VOLUME 88 fL (80-96); MONOCYTES # (AUTO) 0.9 /CMM (0.1-1.30); MONOCYTES % (AUTO) 5.3 % (2.0-12.0); NEUTROPHILS # (AUTO) 13.9 /CMM (1.8-8.9); NEUTROPHILS % (AUTO) 85.5 % (43.0-81.0); PLATELET COUNT (AUTO) 152 /CMM (150-450); RED BLOOD CELL COUNT(AUTO) 3.48 MIL/uL (4.5-6.0); WHITE BLOOD COUNT (AUTO) 16.3 K/uL (4.3-11.0)
[2021-02-26 15:35] LABS: BILIRUBIN,TOTAL 1.7 mg/dL (0.2-1.0); CALCIUM, SERUM 7.5 mg/dL (8.5-10.1); CREATININE 2.8 mg/dL (0.6-1.3); MAGNESIUM 1.6 mg/dL (1.8-2.4); PHOSPHORUS 2.5 mg/dL (2.5-4.9); POTASSIUM 4.4 mmol/L (3.5-5.1); TOTAL PROTEIN, SERUM 5.7 g/dL (6.4-8.2)
[2021-02-26 15:38] LABS: ALBUMIN 1.2 g/dL (3.4-5.0)
[2021-02-26 16:00] VITALS: BP 134/44
--- NOTE | 2021-02-26 16:11 | NUR ---
RN NOTE RIGHT FEMORAL TRIPLE LUMEN REMOVED. TIP COLLECTED AND AWAITING LAB HEATING AND AIR CONDITIONING MECHANIC FOR CULTURE.
--- NOTE | 2021-02-26 17:17 | NUR ---
rn note patient refusing 1700 medication and accu check. explained to patient importance of medication adherence and potential side effects. patient still refused.
[2021-02-26] MEDS: HYDROCODONE/APAP 10/325MG TABLET PO PRN (17:43)
--- NOTE | 2021-02-26 18:00 | NUR ---
RN NOTE PATIENT COMPLAINING OF BILATERAL ARM PAIN. DR. LOCKE AWARE. ADMINISTERED NORCO.
--- NOTE | 2021-02-26 18:52 | NUR ---
rn note patient is in bed with hob at semi fowlers position. patient is aox3. on room air with no signs of labored breathing. liz #20 midline is patent and intact. bed is locked in the lowest position, 3 guard rails raised, call godfrey within reach, and all hospital safety precautions are being followed. patient refused a majority of scheduled medications. patient remained stable throughout shift. will endorse to folder hand rn.
[2021-02-26 20:00] VITALS: BP 119/66
--- NOTE | 2021-02-26 20:00 | NUR ---
MS RN NOTE PT IN BED AWAKE. A/O X 3, SERBIAN SPEAKING , NO SOB, NO DISTRESS OR DISCOMFORT NOTED. DENIES PAIN. ON TELE MONITOR ST 106. IVF D5 1/2 NS WITH 20 MEQ KCL INFUSING AT 100 ML/HR DANIEL MIDLINE. ELEVATED LT HEEL AND RT STUMP ON PILLOWS. CONTINUE TO MONITOR HIM.
[2021-02-26] MEDS: INSULIN GLARGINE, 100 UNIT/ML CARTRIDGE SQ SCH (22:00)
[2021-02-26] MEDS: LINAGLIPTIN 5 MG TABLET PO SCH (22:08)
--- NOTE | 2021-02-26 22:08 | NUR ---
PHARMACY BUYER NOTE PT BS 133, REFUSED REG AND LANTUS INSULIN AT HS. STATES "MY BS IS LOW AND IT WILL MAKE IT MORE LOWER". PT REFUSED TO EAT ALSO.
--- NOTE | 2021-02-27 01:40 | NUR ---
MS RN NOTE DR GREGORIO INFORMED PT K 4.4 AND SWELLING ON HIM ARMS. GAVE NEW ORDER TO DC IVF. ORDER NOTED AND CARRIED OUT.
[2021-02-27 04:00] VITALS: BP 143/54
[2021-02-27] MEDS: AMPICILLIN 1 GM in IV NS 0.9% 50 ML IV SCH ×3 (05:38→21:33)
[2021-02-27] MEDS: BLOOD SUGAR DIAGNOSTIC 1 EACH STRIP IN SCH ×4 (07:22→21:59)
--- NOTE | 2021-02-27 07:50 | NUR ---
RN NOTE PATIENT IS IN BED WITH HOB AT SEMI FOWLERS POSITION. PATIENT IS ON ROOM AIR WITH NO SIGNS OF LABORED BREATHING. PATIENT IS AOX3. DANIEL MIDLINE IS PATENT AND INTACT. BED IS LOCKED IN THE LOWEST POSITION, 3 GUARD RAILS RAISED, CALL ZAVALETA WITHIN REACH, AND ALL HOSPITAL SAFETY PRECAUTIONS ARE BEING FOLLOWED. WILL CONTINUE TO MONITOR THROUGHOUT SHIFT.
[2021-02-27 08:00] VITALS: BP 136/113
[2021-02-27] MEDS: MECLIZINE HCL 25 MG TABLET PO SCH (08:58)
[2021-02-27] MEDS: FOLIC ACID 1 MG TABLET PO SCH (08:58)
[2021-02-27] MEDS: SEVELAMER CARBONATE 800 MG TABLET PO SCH (08:58)
[2021-02-27] MEDS: CALCIUM CARB 600MG /VIT D 1 EACH TABLET PO SCH (08:58)
[2021-02-27] MEDS: ASPIRIN 81 MG TAB.CHEW PO SCH (08:58)
[2021-02-27] MEDS: ACIDOPHILUS/BULGARICUS 1 EACH TAB.CHEW PO SCH ×2 (08:58→16:27)
[2021-02-27] MEDS: LISINOPRIL (10MG) 10 MG TABLET PO SCH (08:59)
[2021-02-27] MEDS: PANTOPRAZOLE 40 MG TABLET.DR PO SCH (09:00)
[2021-02-27] MEDS: INSULIN LISPRO/ASPART 100 UNIT/ML CARTRIDGE SQ SCH ×2 (09:02→17:34)
[2021-02-27 09:03] LABS: CALCIUM, SERUM 7.7 mg/dL (8.5-10.1); CREATININE 3.1 mg/dL (0.6-1.3)
[2021-02-27 09:35] LABS: POTASSIUM 5.2 mmol/L (3.5-5.1)
[2021-02-27] MEDS: ACETAMINOPHEN ES 500 MG TABLET PO SCH ×2 (13:18→21:34)
[2021-02-27 16:00] VITALS: BP 144/86
--- NOTE | 2021-02-27 16:20 | NUR ---
rn note consent obtained for removal of hd perma cath.
--- NOTE | 2021-02-27 17:34 | NUR ---
rn note humalog held due to patient's blood sugar of 90 and poor appetite.
--- NOTE | 2021-02-27 18:58 | NUR ---
RN NOTE PATIENT IS IN BED WITH HOB AT SEMI FOWLERS POSITION. PATIENT IS ON ROOM AIR WITH NO SIGNS OF LABORED BREATHING. PATIENT IS AOX3. DANIEL MIDLINE IS PATENT AND INTACT. BED IS LOCKED IN THE LOWEST POSITION, 3 GUARD RAILS RAISED, CALL ZAVALETA WITHIN REACH, AND ALL HOSPITAL SAFETY PRECAUTIONS ARE BEING FOLLOWED. ALL DUE MEDS GIVEN AND PATIENT REMAINED STABLE THROUGHOUT SHIFT. WILL ENDORSE TO PROGRAMMING SPECIALIST RN.
--- NOTE | 2021-02-27 19:30 | NUR ---
RN OPENING NOTES: RECEIVED MOROCCAN SPEAKING PT A/OX4 IN BED RESTING COMFORTABLY. PATIENT IN NO S/SX OF ACUTE DISTRESS AT THIS TIME. NO SOB NOTED. PATIENT'S BREATHING IS EVEN AND UNLABORED. PATIENT IS ON ROOM AIR; TOLERATING WELL WITH O2 SAT OF 98% AT THE TIME OF RECEIVED. PATIENT ON TELE MONITORING READING SINUS TACHY HR IS @108 AT THE TIME OF RECEIVED.PATIENT ON RENAL DIET; TOLERATES WELL. NOTED IV SITE ON L UA MIDLINE #18; PATENT, INTACT AND FLUSHING WELL; NO S/S OF INFECTION OR INFILTRATION. SAFETY MEASURES HAVE BEEN PROVIDED AND IMPLEMENTED. PATIENT BED ALARM IS ON. HEAD OF BED ELEVATED. BED IS LOCKED, IN LOWEST POSITION AND SIDE RAILS UP. CALL LIGHT WITHIN REACH OF THE PATIENT. APPLICABLE ISOLATION PRECAUTIONS IN PLACE. WILL CONTINUE TO MONITOR AND REASSESS FOR ANY CHANGES AND WILL CARRY OUT ANY ONGOING AND ACTIVE MD ORDER.
[2021-02-27 20:00] VITALS: BP 121/62
[2021-02-27] MEDS: GABAPENTIN 100 MG CAPSULE PO SCH (21:34)
[2021-02-27] MEDS: LINAGLIPTIN 5 MG TABLET PO SCH (21:34)
[2021-02-27] MEDS: MIRTAZAPINE 15 MG TABLET PO SCH (21:34)
[2021-02-27] MEDS: INSULIN GLARGINE, 100 UNIT/ML CARTRIDGE SQ SCH (22:00)
[2021-02-27] MEDS: INSULIN REGULAR, HUMAN 100 UNIT/ML 3 ML VIAL SQ PRN (22:04)
--- NOTE | 2021-02-27 22:04 | NUR ---
RN NOTES ACCU CHECK DONE; 113MG/DL. NOCOVERAGE FOR THE REGULAR INSULIN. PT REFUSED LANTUS DUE AT THIS TIME. EXPLAINED RISK AND BENEFITS WITH CNAAS REHEAT FURNACE OPERATOR @BEDSIDE. BUT PT STILL REFUSED. EMBEDDED ENGINEER MADE AWARE. WILL CONTINUE TO ASSESS AND MONITOR THROUGHOUT THE SHIFT.
--- NOTE | 2021-02-27 23:00 | NUR ---
RN NOTES NO CHANGE IN PATIENT CONDITION AT THIS TIME PATIENT VITALS STABLE, NO SIGNS OF ACUTE RESPIRATORY DISTRESS. BUNDLE CLERK MADE AWARE. WILL CONTINUE TO MONITOR AND REASSESS FOR ANY CHANGES THROUGHOUT THE SHIFT.
[2021-02-28 04:00] VITALS: BP 131/34
[2021-02-28] MEDS: AMPICILLIN 1 GM in IV NS 0.9% 50 ML IV SCH ×3 (04:52→21:10)
[2021-02-28] MEDS: ACETAMINOPHEN ES 500 MG TABLET PO SCH ×3 (05:09→21:10)
--- NOTE | 2021-02-28 06:50 | NUR ---
RN CLOSING NOTE: PATIENT REMAINS IN ROOM IN NO SIGNS OF RESPIRATORY DISTRESS, PATIENT STILL ON ROOM AIR;TOLERATING WELL SATURATING @ >95% SP02. SAFETY MEASURES IMPLEMENTED, BED IN LOWEST POSITION, LOCKED, SIDE RAILS UP, CALL LIGHT WITHIN REACH. ALL NEEDS AND ORDERS ADDRESSED DURING THE SHIFT. IV ACCESS MAINTAINED INTACT, SECURED AND FLUSHING WELL. ALL DUE MEDS GIVEN ORDERED & SCHEDULED ; PATIENT TOLERATED WELL. PATIENT KEPT CLEAN AND COMFORTABLE WITHIN THE SHIFT. PATIENT ENDORSED TO INCOMING SHIFT RN WITH STABLE VITAL SIGN AND FOR CONTINUITY OF CARE.
[2021-02-28 07:10] LABS: CALCIUM, SERUM 7.7 mg/dL (8.5-10.1); CREATININE 3.4 mg/dL (0.6-1.3); POTASSIUM 4.9 mmol/L (3.5-5.1)
--- NOTE | 2021-02-28 07:15 | NUR ---
RN OPENING NOTES PATIENT RECEIVED RESTING IN SEMI-FOWLERS POSITION. PATIENT IS INDONESIAN SPEAKING A/OX4. PATIENT IN NO S/SX OF ACUTE DISTRESS AT THIS TIME. NO SOB NOTED. PATIENT'S BREATHING IS EVEN AND UNLABORED. PATIENT IS ON ROOM AIR TOLERATING WELL. IV SITE ON LEFT UPPER ARM MIDLINE #18 PATENT AND INTACT, FLUSHING WELL. NO S/S OF INFECTION OR INFILTRATION. SAFETY PRECAUTIONS IMPLEMENTED, BED ALARM ON, HEAD OF BED ELEVATED, BED IS LOCKED AND IN LOWEST POSITION, SIDE RAILS UP X2, CALL LIGHT WITHIN REACH. WILL CONTINUE TO MONITOR AND PROVIDE CARE THROUGHOUT SHIFT.
[2021-02-28] MEDS: BLOOD SUGAR DIAGNOSTIC 1 EACH STRIP IN SCH ×4 (07:30→21:11)
[2021-02-28 08:00] VITALS: BP 117/44
[2021-02-28] MEDS ORDERED: LIDOCAINE 1% INJ 50 ML MDV IJ ONE (08:30)
[2021-02-28] MEDS: FOLIC ACID 1 MG TABLET PO SCH (08:35)
[2021-02-28] MEDS: MECLIZINE HCL 25 MG TABLET PO SCH (08:35)
[2021-02-28] MEDS: PANTOPRAZOLE 40 MG TABLET.DR PO SCH (08:35)
[2021-02-28] MEDS: ACIDOPHILUS/BULGARICUS 1 EACH TAB.CHEW PO SCH ×2 (08:36→17:41)
[2021-02-28] MEDS: CALCIUM CARB 600MG /VIT D 1 EACH TABLET PO SCH (08:36)
[2021-02-28] MEDS: SEVELAMER CARBONATE 800 MG TABLET PO SCH (08:36)
[2021-02-28] MEDS: INSULIN LISPRO/ASPART 100 UNIT/ML CARTRIDGE SQ SCH ×2 (08:37→17:42)
[2021-02-28] MEDS: ASPIRIN 81 MG TAB.CHEW PO SCH (13:34)
[2021-02-28] MEDS: LISINOPRIL (10MG) 10 MG TABLET PO SCH (13:34)
[2021-02-28 16:00] VITALS: BP 117/41
--- NOTE | 2021-02-28 18:59 | NUR ---
RN CLOSING NOTES PATIENT RESTING IN RIGHT LATERAL POSITION. PATIENT IS PAKISTANI SPEAKING A/OX4. PATIENT IN NO S/SX OF ACUTE DISTRESS AT THIS TIME. NO SOB NOTED. PATIENT'S BREATHING IS EVEN AND UNLABORED. PATIENT IS ON ROOM AIR TOLERATING WELL. IV SITE ON LEFT UPPER ARM MIDLINE #18 PATENT AND INTACT, FLUSHING WELL. NO S/S OF INFECTION OR INFILTRATION. SAFETY PRECAUTIONS IMPLEMENTED, BED ALARM ON, HEAD OF BED ELEVATED, BED IS LOCKED AND IN LOWEST POSITION, SIDE RAILS UP X2, CALL LIGHT WITHIN REACH. WILL ENDORSE CARE TO UPCOMING SHIFT.
--- NOTE | 2021-02-28 19:45 | NUR ---
RN NOTE REC'D PT IN BED, A/O X3. MOHAWK SPEAKING. LITTLE SINHALA, ABLE TO MAKE NEEDS KNOWN. PT IS ON ROOM AIR NO RESP DISTRESS, NO SOB NOTED. PT ON MED SURG MONITORING. IV SITE DANIEL MIDLINE FLUSHED, GOOD BLOOD RETURN NOTED. INTACT PATENT. RIGHT BKA NOTED. PM CARE DONE. ALL NEEDS ATTENDED. ALL SAFETY MEASURES IN PLACE. HOB ELEVATED. SIDE RAILS UP X2 BED LOCKED IN LOWEST POSITION WITH BED ALARM ON. CALL LIGHT WITHIN REACH. WILL CONT TO MONITOR CLOSELY.
[2021-02-28 20:00] VITALS: BP 155/98
[2021-02-28] MEDS: MIRTAZAPINE 15 MG TABLET PO SCH (20:46)
[2021-02-28] MEDS: GABAPENTIN 100 MG CAPSULE PO SCH (21:11)
[2021-02-28] MEDS: LINAGLIPTIN 5 MG TABLET PO SCH (21:11)
[2021-02-28] MEDS: INSULIN REGULAR, HUMAN 100 UNIT/ML 3 ML VIAL SQ PRN (21:39)
[2021-02-28] MEDS: INSULIN GLARGINE, 100 UNIT/ML CARTRIDGE SQ SCH (21:40)
[2021-03-01 04:00] VITALS: BP_SYST 153; BP_DIAS 52; BP_DIAS 72
[2021-03-01] MEDS: AMPICILLIN 1 GM in IV NS 0.9% 50 ML IV SCH ×3 (04:31→21:42)
[2021-03-01] MEDS: ACETAMINOPHEN ES 500 MG TABLET PO SCH ×3 (04:31→21:43)
--- NOTE | 2021-03-01 06:45 | NUR ---
RN CLOSING NOTES AT THIS TIME, PT IS RESTING IN BED. NO SIGNIFICANT CHANGES IN PT CONDITION. PT NOT IN DISTRESS. NO SOB NOTED. PT DENIES PAIN AT THIS TIME, SCHEDULED TYLENOL HELP VERBALIZED BY PT. SAFETY MEASURES IN PLACE. HOB ELEVATED SIDE RAILS UP X2 BED LOCKED IN LOWEST POSITION WITH BED ALARM TRANSIT PLANNER LIGHT WITHIN REACH. WILL ENDORSE TO DAY SHIFT FOR CONTINUATION OF CARE.
[2021-03-01] MEDS: BLOOD SUGAR DIAGNOSTIC 1 EACH STRIP IN SCH ×4 (07:42→22:03)
--- NOTE | 2021-03-01 07:56 | NUR ---
RN OPENING NOTE PT IN BED ASLEEP. AROUSES TO NAME. A/O X 3 AND PRIMARILY YORUBA SPEAKING. UNDERSTANDS SOME MARTINIQUAIS. NO COMPLAINT OF PAIN OR NAUSEA PRESENT. ON RA WITH NO SOB OR RESPIRATORY DISTRESS PRESENT. NO CARDAIC MONITOR PRESENT. NO EDEMA PRESENT. ON BEDREST WITH URINAL AT BEDSIDE. R BKA PRESENT AND WOUNDS PRESENT ON L HEEL AND TOE. MIDLINE PRESENT ON DANIEL AND FLUSHES WELL. LABS REVIEWED. SAFETY MEASURES IN PLACE. SIDE RAILS RAISED. BED LOWERED. CALL LIGHT WITHIN REACH. WILL CONTINUE TO MONITOR.
[2021-03-01] MEDS: MECLIZINE HCL 25 MG TABLET PO SCH (08:05)
[2021-03-01] MEDS: PANTOPRAZOLE 40 MG TABLET.DR PO SCH (08:05)
[2021-03-01] MEDS: CALCIUM CARB 600MG /VIT D 1 EACH TABLET PO SCH (08:05)
[2021-03-01] MEDS: ACIDOPHILUS/BULGARICUS 1 EACH TAB.CHEW PO SCH ×2 (08:05→17:26)
[2021-03-01] MEDS: ASPIRIN 81 MG TAB.CHEW PO SCH (08:05)
[2021-03-01] MEDS: FOLIC ACID 1 MG TABLET PO SCH (08:05)
[2021-03-01] MEDS: LISINOPRIL (10MG) 10 MG TABLET PO SCH (08:06)
[2021-03-01] MEDS: SEVELAMER CARBONATE 800 MG TABLET PO SCH (08:06)
[2021-03-01] MEDS: INSULIN LISPRO/ASPART 100 UNIT/ML CARTRIDGE SQ SCH ×2 (09:00→17:43)
--- NOTE | 2021-03-01 09:10 | NUR ---
RN NOTE PT DID NOT EAT BREAKFAST. CURRENT BG OF 82. INSULIN NOT ADMINISTERED. WILL CONTINUE TO MONITOR.
[2021-03-01 12:00] VITALS: BP 119/35
[2021-03-01] MEDS: INSULIN REGULAR, HUMAN 100 UNIT/ML 3 ML VIAL SQ PRN (17:26)
[2021-03-01] MEDS: SODIUM BICARBONATE 650 MG TABLET PO SCH (17:26)
[2021-03-01 18:00] VITALS: BP 133/49
--- NOTE | 2021-03-01 18:49 | NUR ---
RN CLOSING NOTE PT IN BED ASLEEP. AROUSES TO NAME. A/O X 3 AND PRIMARILY SLOVENIAN SPEAKING. UNDERSTANDS SOME SAUDI ARABIAN. NO COMPLAINT OF PAIN OR NAUSEA PRESENT. ON RA WITH NO SOB OR RESPIRATORY DISTRESS PRESENT. NO CARDAIC MONITOR PRESENT. NO EDEMA PRESENT. ON BEDREST WITH URINAL AT BEDSIDE. R BKA PRESENT AND WOUNDS PRESENT ON L HEEL AND TOE. MIDLINE PRESENT ON DANIEL AND FLUSHES WELL. ROUTINE MEDS GIVEN. LABS REVIEWED. SAFETY MEASURES IN PLACE. SIDE RAILS RAISED. BED LOWERED. CALL LIGHT WITHIN REACH. REPORT TO BE GIVEN TO NIGHT NURSE FOR JUAN MANUEL.
--- NOTE | 2021-03-01 19:00 | NUR ---
RN NOTE RECEIVED PATIENT IN BED, AO X 4, TUNISIAN SPEAKING BUT UNDERSTANDS SIMPLE ARABIC, IN NO S/SX OF ACUTE DISTRESS AT THIS TIME. NO SOB NOTED, BREATHING IS EVEN AND UNLABORED, SATURATION 97% ON ROOM AIR, HR IS 91. DANIEL MIDLINE PATENT AND FLUSHING WELL, NO S/S OF INFECTION NOTED. NOTED R BKA WITH DRESSING DRY AND INTACT. SAFETY MEASURES IMPLEMENTED. PATIENT BED ALARM IS ON. HEAD OF BED ELEVATED. BED IS LOCKED, IN LOWEST POSITION AND SIDE RAILS UP. CALL LIGHT WITHIN REACH OF THE PATIENT. WILL CONTINUE TO MONITOR AND REASSESS FOR ANY CHANGES.
[2021-03-01] MEDS: MIRTAZAPINE 15 MG TABLET PO SCH (19:38)
[2021-03-01 20:00] VITALS: BP 114/54
[2021-03-01] MEDS: LINAGLIPTIN 5 MG TABLET PO SCH (21:43)
[2021-03-01] MEDS: GABAPENTIN 100 MG CAPSULE PO SCH (21:43)
[2021-03-01] MEDS: INSULIN GLARGINE, 100 UNIT/ML CARTRIDGE SQ SCH (22:00)
--- NOTE | 2021-03-01 22:00 | NUR ---
RN NOTE PATIENT REFUSES INSULIN, IN ADDITION ACCUCHECK RESULTED 103 MG/DL, PATIENT HAS POOR APPETITE AND DID NOT EAT DINNER. INSULIN NON ADMINISTERED. DIRECTOR OF DIRECT MARKETING MADE AWARE.
[2021-03-02 04:00] VITALS: BP 120/69
[2021-03-02] MEDS: ACETAMINOPHEN ES 500 MG TABLET PO SCH ×2 (04:23→12:12)
[2021-03-02] MEDS: AMPICILLIN 1 GM in IV NS 0.9% 50 ML IV SCH ×2 (04:23→12:12)
--- NOTE | 2021-03-02 07:25 | NUR ---
RN OPENING NOTE PATIENT RECEIVED IN BED RESTING IN HIGH FOWLERS POSITION EATING BREAKFAST. PATIENT ALERT AND ORIENTED CHINESE SPEAKING. NO APPARENT RESPIRATORY DISTRESS NOTED. NO SIGN AND SYMPTOM OF PAIN NOTED. LEFT UPPER ARM MIDLINE INTACT AND PATENT. SAFETY PRECAUTIONS IMPLEMENTED, SIDE RAILS UP X2, BED LOCKED IN LOWEST POSITION, CALL LIGHT WITHIN REACH. WILL CONTINUE TO MONITOR AND PROVIDE CARE THROUGHOUT SHIFT.
[2021-03-02] MEDS: SEVELAMER CARBONATE 800 MG TABLET PO SCH (08:11)
[2021-03-02] MEDS: ASPIRIN 81 MG TAB.CHEW PO SCH (08:11)
[2021-03-02 08:12] VITALS: BP 121/64
[2021-03-02] MEDS: FOLIC ACID 1 MG TABLET PO SCH (08:12)
[2021-03-02] MEDS: LISINOPRIL (10MG) 10 MG TABLET PO SCH (08:12)
[2021-03-02] MEDS: MECLIZINE HCL 25 MG TABLET PO SCH (08:12)
[2021-03-02] MEDS: BLOOD SUGAR DIAGNOSTIC 1 EACH STRIP IN SCH ×2 (08:12→12:09)
[2021-03-02] MEDS: PANTOPRAZOLE 40 MG TABLET.DR PO SCH (08:12)
[2021-03-02] MEDS: ACIDOPHILUS/BULGARICUS 1 EACH TAB.CHEW PO SCH (08:12)
[2021-03-02] MEDS: CALCIUM CARB 600MG /VIT D 1 EACH TABLET PO SCH (08:12)
[2021-03-02] MEDS: SODIUM BICARBONATE 650 MG TABLET PO SCH (08:15)
[2021-03-02] MEDS: INSULIN LISPRO/ASPART 100 UNIT/ML CARTRIDGE SQ SCH (08:15)
[2021-03-02 10:40] LABS: BASOPHILS # (AUTO) 0.1 /CMM (0.0-0.2); BASOPHILS % (AUTO) 0.8 % (0.0-2.0); EOSINOPHILS % (AUTO) 1.4 % (0.0-6.0); HEMATOCRIT 26 % (39-51); LYMPHOCYTES # (AUTO) 1.9 /CMM (0.8-4.8); LYMPHOCYTES % (AUTO) 23.5 % (20.0-44.0); MEAN CORPUSCULAR HGB CONC 31 g/dl (31.0-36.0); MEAN CORPUSCULAR VOLUME 89 fL (80-96); MONOCYTES # (AUTO) 0.9 /CMM (0.1-1.30); MONOCYTES % (AUTO) 10.6 % (2.0-12.0); NEUTROPHILS # (AUTO) 5.2 /CMM (1.8-8.9); NEUTROPHILS % (AUTO) 63.7 % (43.0-81.0); PLATELET COUNT (AUTO) 277 /CMM (150-450); RED BLOOD CELL COUNT(AUTO) 2.85 MIL/uL (4.5-6.0); WHITE BLOOD COUNT (AUTO) 8.1 K/uL (4.3-11.0)
[2021-03-02 11:09] LABS: CALCIUM, SERUM 7.4 mg/dL (8.5-10.1); CREATININE 3.5 mg/dL (0.6-1.3); POTASSIUM 4.9 mmol/L (3.5-5.1)
--- NOTE | 2021-03-02 15:09 | NUR ---
patient discharged from hospital in stable condition. patient discharge paperwork and instructions provided for client and snf prior to discharge. called and gave report to july at [facility]. patient care transferred over to [facility] for transportation. Addendum: 03/02/21 at 1511 by KEN GRULLON RN patient refused wound pics to be taken prior to discharge.
== END 2021-03-02 14:25 | DRG 239 ==
LOC: ER 09:45 → ICU 13:48 → TELE1 02-25 18:17 → MEDSG1 02-26 23:46
PROVIDERS: ADMIT Registered Nurse; ATTEND Nurse Practitioner Acute Care
PROC: 0Y6H0Z2 Detachment at Right Lower Leg, Mid, Open Approach (ICD-10-PCS; principal; 2021-02-24)
PROC: 30233N1 Transfusion of Nonautologous Red Blood Cells into Peripheral Vein, Percutaneous Approach (ICD-10-PCS; 2021-02-24)
PROC: 5A1D70Z Performance of Urinary Filtration, Intermittent, Less than 6 Hours Per Day (ICD-10-PCS; 2021-02-24)
PROC: 05H633Z Insertion of Infusion Device into Left Subclavian Vein, Percutaneous Approach (ICD-10-PCS; 2021-02-26)
PROC: B547ZZA Ultrasonography of Left Subclavian Vein, Guidance (ICD-10-PCS; 2021-02-26)
PROC: 0JPTXXZ Removal of Tunneled Vascular Access Device from Trunk Subcutaneous Tissue and Fascia, External Approach (ICD-10-PCS; 2021-02-28)
DX: T80.211A Bloodstream infection due to central venous catheter, initial encounter (principal); A41.9 Sepsis, unspecified organism; E43 Unspecified severe protein-calorie malnutrition; G92 Toxic encephalopathy; J96.00 Acute respiratory failure, unspecified whether with hypoxia or hypercapnia; M72.6 Necrotizing fasciitis; N18.6 End stage renal disease; R65.21 Severe sepsis with septic shock; A41.81 Sepsis due to Enterococcus; E87.1 Hypo-osmolality and hyponatremia; I13.2 Hypertensive heart and chronic kidney disease with heart failure and with stage 5 chronic kidney disease, or end stage renal disease; I50.32 Chronic diastolic (congestive) heart failure; D68.59 Other primary thrombophilia; E87.2 Acidosis; L03.115 Cellulitis of right lower limb; E11.52 Type 2 diabetes mellitus with diabetic peripheral angiopathy with gangrene; I96 Gangrene, not elsewhere classified; F33.2 Major depressive disorder, recurrent severe without psychotic features; F05 Delirium due to known physiological condition; D63.1 Anemia in chronic kidney disease; E11.22 Type 2 diabetes mellitus with diabetic chronic kidney disease; E11.42 Type 2 diabetes mellitus with diabetic polyneuropathy; E11.621 Type 2 diabetes mellitus with foot ulcer; E11.65 Type 2 diabetes mellitus with hyperglycemia; D69.6 Thrombocytopenia, unspecified; E78.5 Hyperlipidemia, unspecified; E87.5 Hyperkalemia; Z79.4 Long term (current) use of insulin; Z79.82 Long term (current) use of aspirin; G89.4 Chronic pain syndrome; E88.09 Other disorders of plasma-protein metabolism, not elsewhere classified; Z68.26 Body mass index [BMI] 26.0-26.9, adult; L97.514 Non-pressure chronic ulcer of other part of right foot with necrosis of bone; L89.896 Pressure-induced deep tissue damage of other site; Z20.822 Contact with and (suspected) exposure to COVID-19; G54.6 Phantom limb syndrome with pain; Z99.2 Dependence on renal dialysis; Y84.8 Other medical procedures as the cause of abnormal reaction of the patient, or of later complication, without mention of misadventure at the time of the procedure; Y92.009 Unspecified place in unspecified non-institutional (private) residence as the place of occurrence of the external cause
CPT/HCPCS: 36415; 70450-TC; 71045-TC; 73610-TC; 73630-TC; 80048-TC; 80053-TC; 80061-TC; 80076-TC; 80202-TC; 81001; 82962-TC; 83605-TC; 83735-TC; 84100-TC; 84443-TC; 84484-TC; 85025-TC; 85610-TC; 85730-TC; 86850-TC; 87040-TC; 87070-TC; 87081-TC; 87186-TC; 88307-TC; 88311-TC; 90935-TC; 93307-TC; 93970-TC; 94799-TC; 97110-TC; 97112-TC; 97116-TC; 97530-TC; A4216; A6253; A6403; C1751; C9113; C9803; G0378; G0463; J0290; J1170; J1815; J2185; J2370; J2405; J2543; J2704; J3010; J3370; J3480; J3490; J7030; J7040; J7050; J7060; J8597; P9016; P9045

== ENCOUNTER 2021-03-04 11:57 | Inpatient (IN) | payer MEDICARE, OTHER ==
[~2021-03-04] VITALS: Ht 157.5 cm; Wt 72.6 kg
[~2021-03-04 11:57] MED LIST changes: +ASPI-1169 PO; -ATOR10TA PO; -BIMA2.5D5 EACHEYE; -BRIM5DRO2 EACHEYE; +CALC1TAB2 PO; -CEFD300C3 PO; -CHOL100062 PO; -CLOP75TA15 PO; -CYAN-51 PO; -FENO145T21 PO; +FOLI0.8T3 PO; +GENTAMICIN OINT TP; +INSU100C10 SQ; +INSU100V7 SQ; +LACT1CAP25 PO; -MAGN500C16 PO; +MECL-159 PO; +METF-440 PO; -MINE454C11 TP; +MUPI22OI2 TP; -SEVE0.8P GT; +SEVE800T8 PO; -SIMV10TA98 PO; -TIMO5DRO18 EACHEYE
--- NOTE | 2021-03-04 12:20 | NUR ---
Patient MARTY PATRICK, from [facility], sent bny PMD for CVC placement. On room air, breathing evenly and unlabored.Connected to the monitor and pulse ox. Kept comfortable, will continue to monitor accordingly.
[2021-03-04] MEDS ORDERED: ONDA4TAB5 PO (12:34)
[2021-03-04] MEDS ORDERED: SODI650T PO (12:34)
[2021-03-04] MEDS ORDERED: PANT40TA2 PO (12:34)
[2021-03-04] MEDS ORDERED: MIRT-90 PO (12:34)
[2021-03-04] MEDS ORDERED: ACET-2605 PO (12:34)
[2021-03-04] MEDS ORDERED: GABA-532 PO (12:34)
[2021-03-04] MEDS ORDERED: NUT.237L85 PO (12:34)
[2021-03-04] MEDS ORDERED: BIMA2.5D5 LEFTEYE (12:34)
[2021-03-04] MEDS ORDERED: INSU100V3 SQ (12:34)
[2021-03-04] MEDS ORDERED: BRIM5DRO2 EACHEYE (12:34)
[2021-03-04] MEDS ORDERED: LINA5TAB PO (12:34)
[2021-03-04] MEDS ORDERED: HYDR-3980 PO (12:34)
[2021-03-04] MEDS ORDERED: AMPI1VIA6 IV (12:34)
[2021-03-04] MEDS ORDERED: MUPI22OI7 TD (12:39)
[2021-03-04] MEDS ORDERED: PETR113O TP (12:39)
[2021-03-04 12:40] LABS: BASOPHILS # (AUTO) 0.2 /CMM (0.0-0.2); BASOPHILS % (AUTO) 1.4 % (0.0-2.0); EOSINOPHILS % (AUTO) 0.7 % (0.0-6.0); HEMATOCRIT 30 % (39-51); HEMOGLOBIN 9.1 g/dL (13.5-17.5); LYMPHOCYTES # (AUTO) 1.8 /CMM (0.8-4.8); LYMPHOCYTES % (AUTO) 16.2 % (20.0-44.0); MEAN CORPUSCULAR HGB CONC 31 g/dl (31.0-36.0); MEAN CORPUSCULAR VOLUME 91 fL (80-96); MONOCYTES # (AUTO) 0.7 /CMM (0.1-1.30); MONOCYTES % (AUTO) 6.5 % (2.0-12.0); NEUTROPHILS # (AUTO) 8.4 /CMM (1.8-8.9); NEUTROPHILS % (AUTO) 75.2 % (43.0-81.0); PLATELET COUNT (AUTO) 403 /CMM (150-450); RED BLOOD CELL COUNT(AUTO) 3.26 MIL/uL (4.5-6.0); WHITE BLOOD COUNT (AUTO) 11.2 K/uL (4.3-11.0)
[2021-03-04 12:48] LABS: CALCIUM, SERUM 7.6 mg/dL (8.5-10.1); CREATININE 3.7 mg/dL (0.6-1.3); POTASSIUM 5.3 mmol/L (3.5-5.1)
[2021-03-04] MEDS ORDERED: DEXTROSE 50%-WATER 50 ML DISP.SYRIN ONE (12:51)
[2021-03-04] MEDS ORDERED: DEXTROSE 50%-WATER 50 ML DISP.SYRIN IVP ONE (13:00)
--- NOTE | 2021-03-04 13:03 | NUR ---
covid 19 swab collected and sent to lab
--- NOTE | 2021-03-04 13:46 | NUR ---
[facility] BED 118-1
--- NOTE | 2021-03-04 14:18 | NUR ---
report given to Julia LORENZ for korin
[2021-03-04] MEDS ORDERED: HYDROMORPHONE INJ 2 MG/ML DISP.SYRIN IV PRN (14:30)
[2021-03-04] MEDS ORDERED: ONDANSETRON HCL/PF 4 MG/2 ML VIAL IVP PRN (14:30)
[2021-03-04] MEDS ORDERED: HYDROCODONE/APAP 10/325MG TABLET PO PRN (14:30)
[2021-03-04] MEDS ORDERED: Z GUARD REMEDY 2 OZ OINT TP PRN (14:30)
[2021-03-04] MEDS ORDERED: ZOLPIDEM TARTRATE 5 MG TABLET PO PRN (14:30)
[2021-03-04] MEDS ORDERED: ACETAMINOPHEN 325 MG TABLET PO PRN (14:30)
[2021-03-04] MEDS ORDERED: Medication Not On Formulary EA (Ondansetron Hcl (Zofran) 4 MG) PO PRN (14:30)
--- NOTE | 2021-03-04 14:53 | NUR ---
wheeled patient via gurney accompanied by RN and emt in no distress. RN assigned to patient at bedside to assume care.
[2021-03-04 14:55] VITALS: BP 115/61
--- NOTE | 2021-03-04 14:55 | NUR ---
CORRESPONDENCE SPECIALIST NOTES ADMITTED FROM ER, FROM [facility], DX PERMACATH PLACEMENT BY ADITYA HERNANDEZ, AAO X 2-3, AMHARIC SPEAKING. ON 2L O2 NASAL CANULA, NO SOB, RESPIRATION UNLABORED, SR 96 ON MONITOR, DENIES CHEST PAIN OR DISCOMFORT AT THIS TIME. MIDLINE TO DANIEL, FLUSHES WELL, SITE CLEAR, CDI DRESSING, PHOSTOS OF SKIN ISSUES TAKEN AND PLACED INSIDE THE CHART. S/P BKA 02/24/21, CDI DRESSING. UNIT ORIENTATION DONE, AND USED OF CALL IGHT, BED LOW LOCKED, SR UP X 2, CALL LIGHT WITHIN REACH. WILL CONT TO MONITOR.
[2021-03-04] MEDS: INSULIN LISPRO/ASPART 100 UNIT/ML CARTRIDGE SQ SCH (16:30)
[2021-03-04] MEDS: NEPRO VAN 237 ML CAN PO SCH (17:00)
[2021-03-04] MEDS: BLOOD SUGAR DIAGNOSTIC 1 EACH STRIP IN SCH ×2 (17:12→22:00)
[2021-03-04] MEDS: IV NS 0.9% 250 ML IV PRN (17:24)
[2021-03-04] MEDS: AMPICILLIN SODIUM 2 GM in IV NS 0.9% 100 ML IV SCH (17:32)
[2021-03-04] MEDS: ACIDOPHILUS/BULGARICUS 1 EACH TAB.CHEW PO SCH (17:32)
[2021-03-04] MEDS: SODIUM BICARBONATE 650 MG TABLET PO SCH (17:33)
[2021-03-04] MEDS: TIMOLOL 0.5% SOLN OPHTH 5 ML BOTTLE OP SCH (17:33)
[2021-03-04] MEDS: BRIMONIDINE TARTRATE OPHT SOLN 5 ML BOTTLE OP SCH (17:33)
--- NOTE | 2021-03-04 19:12 | NUR ---
RN NOTES ALL NEEDS MET. VITAL STABLE. NO OTHER SIGNIFICANT CHANGE IN CONDITION. CALL LIGHT WITHIN REACH. ENDORSED TO ANGIE RN HOUSE SUPERVISOR.
[2021-03-04 20:00] VITALS: BP 94/36
[2021-03-04] MEDS ORDERED: VANCOMYCIN 1 GM in IV D5W 250 ML IV ONE (20:00)
[2021-03-04] MEDS ORDERED: AMPICILLIN 1 GM VIAL IV SCH (21:00)
[2021-03-05] VITALS: BP 103/32
[2021-03-05] MEDS: INSULIN GLARGINE, 100 UNIT/ML CARTRIDGE SQ SCH ×2 (00:22→22:00)
[2021-03-05] MEDS: MIRTAZAPINE 15 MG TABLET PO SCH ×2 (00:25→22:01)
[2021-03-05] MEDS: LATANOPROST EYE DROP 0.005% 2.5 ML BOTTLE OP SCH ×2 (00:25→22:01)
[2021-03-05] MEDS: GABAPENTIN 100 MG CAPSULE PO SCH ×2 (00:25→22:01)
[2021-03-05] MEDS: LINAGLIPTIN 5 MG TABLET PO SCH ×2 (00:29→22:01)
[2021-03-05 04:00] VITALS: BP 127/52
[2021-03-05] MEDS ORDERED: VANCOMYCIN 500 MG in IV D5W 100 ML IV PRN (06:00)
[2021-03-05] MEDS: AMPICILLIN SODIUM 2 GM in IV NS 0.9% 100 ML IV SCH ×2 (06:00→17:56)
[2021-03-05 06:29] LABS: BASOPHILS # (AUTO) 0.1 /CMM (0.0-0.2); BASOPHILS % (AUTO) 1.3 % (0.0-2.0); EOSINOPHILS % (AUTO) 0.7 % (0.0-6.0); HEMATOCRIT 25 % (39-51); HEMOGLOBIN 7.8 g/dL (13.5-17.5); LYMPHOCYTES # (AUTO) 1.8 /CMM (0.8-4.8); LYMPHOCYTES % (AUTO) 19.5 % (20.0-44.0); MEAN CORPUSCULAR HGB CONC 31 g/dl (31.0-36.0); MEAN CORPUSCULAR VOLUME 91 fL (80-96); MONOCYTES # (AUTO) 0.5 /CMM (0.1-1.30); MONOCYTES % (AUTO) 5.6 % (2.0-12.0); NEUTROPHILS # (AUTO) 6.7 /CMM (1.8-8.9); NEUTROPHILS % (AUTO) 72.9 % (43.0-81.0); PLATELET COUNT (AUTO) 376 /CMM (150-450); RED BLOOD CELL COUNT(AUTO) 2.78 MIL/uL (4.5-6.0); WHITE BLOOD COUNT (AUTO) 9.2 K/uL (4.3-11.0)
[2021-03-05 06:54] LABS: BILIRUBIN,TOTAL 0.4 mg/dL (0.2-1.0); CALCIUM, SERUM 7.3 mg/dL (8.5-10.1); CREATININE 4.1 mg/dL (0.6-1.3); MAGNESIUM 1.8 mg/dL (1.8-2.4); PHOSPHORUS 4.5 mg/dL (2.5-4.9); POTASSIUM 5.7 mmol/L (3.5-5.1); TOTAL PROTEIN, SERUM 5.4 g/dL (6.4-8.2)
[2021-03-05] MEDS: INSULIN LISPRO/ASPART 100 UNIT/ML CARTRIDGE SQ SCH ×2 (07:30→16:30)
--- NOTE | 2021-03-05 07:30 | NUR ---
RN MS NOTES PT IN BED, ASLEEP, EASILY AROUSABLE, ALERT AND VERBALLY RESPONSIVE, NO COMPLAINT OF PAIN, BREATHING PATTERN NORMAL AND NOT LABORED, CALL LIGHT WITHIN REACH, NEEDS ATTENDED.
[2021-03-05 07:34] LABS: ALBUMIN 1.1 g/dL (3.4-5.0)
[2021-03-05 08:00] VITALS: BP 121/84
[2021-03-05] MEDS ORDERED: MUPIROCIN OINT 2% 22 GM TUBE NS SCH (09:00)
[2021-03-05] MEDS: PANTOPRAZOLE 40 MG TABLET.DR PO SCH (09:01)
[2021-03-05] MEDS: SEVELAMER CARBONATE 800 MG TABLET PO SCH (09:01)
[2021-03-05] MEDS: MECLIZINE HCL 25 MG TABLET PO SCH (09:01)
[2021-03-05] MEDS: FOLIC ACID 1 MG TABLET PO SCH (09:01)
[2021-03-05] MEDS: ACIDOPHILUS/BULGARICUS 1 EACH TAB.CHEW PO SCH ×2 (09:01→17:47)
[2021-03-05] MEDS: CALCIUM CARB 600MG /VIT D 1 EACH TABLET PO SCH (09:01)
[2021-03-05] MEDS: SODIUM BICARBONATE 650 MG TABLET PO SCH ×2 (09:01→17:47)
[2021-03-05] MEDS: ASPIRIN 81 MG TAB.CHEW PO SCH (09:01)
[2021-03-05] MEDS: LISINOPRIL (10MG) 10 MG TABLET PO SCH (09:03)
[2021-03-05] MEDS: TIMOLOL 0.5% SOLN OPHTH 5 ML BOTTLE OP SCH ×2 (09:07→17:58)
[2021-03-05] MEDS: BLOOD SUGAR DIAGNOSTIC 1 EACH STRIP IN SCH ×4 (09:07→22:10)
[2021-03-05] MEDS: BRIMONIDINE TARTRATE OPHT SOLN 5 ML BOTTLE OP SCH ×2 (09:07→17:58)
[2021-03-05] MEDS: NEPRO VAN 237 ML CAN PO SCH ×2 (09:13→17:47)
[2021-03-05] MEDS ORDERED: SODIUM POLYSTYRENE SULFONATE 15 G/60 ML BOTTLE PO ONE (11:00)
--- NOTE | 2021-03-05 12:00 | NUR ---
RN MS NOTES DR. ALFARO INFORMED OF PT'S LATES H/H LEVEL, NO NEW ORDER GIVEN. PT SLEEPING COMFORTABLY.
--- NOTE | 2021-03-05 16:48 | NUR ---
RN MS NOTES INSULIN NOT GIVEN, BS 90
[2021-03-05] MEDS ORDERED: EPOETIN ALFA-EPBX 10,000 UNIT/ML VIAL IV ONE (18:30)
--- NOTE | 2021-03-05 18:59 | NUR ---
RN MS NOTES PT IN BED, ASLEEP, EASY TO AROUSE, ALERT AND ABLE TO MAKE NEEDS KNOWN, ASSISTED WITH MEALS, SEEN BY DR. ALFARO TODAY, NO COMPLAINT OF PAIN OR ANY DISCOMFORT, DUE MEDS GIVEN ORDERED, PM CARE PROVIDED, ALL NEEDS ATTENDED.
--- NOTE | 2021-03-05 19:30 | NUR ---
RN OPENING NOTE PATIENT IS IN BED, EYES CLOSED, PATIENT IS EASILY AWAKENED. PATIENT ABLE TO MAKE NEEDS KNOWN, IRISH SPEAKER. A/O X 3. PATIENT TOLERATING ROOM AIR WITH 95% O2 SATURATION. PATIENT IS NOT IN ANY APPARENT DISTRESS. DOES NOT COMPLAIN OF ANY PAIN OR DISCOMFORT. SAFETY MEASURES IN PLACE: BED IN LOCKED AND LOWEST POSITION, CALL LIGHT WITHIN REACH, SIDE RAILS UP. WILL MONITOR PATIENT CLOSELY.
[2021-03-05 20:00] VITALS: BP 99/74
--- NOTE | 2021-03-05 22:11 | NUR ---
BS 89 MG/DL. NO COVERAGE GIVEN, LANTUS NOT ADMINISTERED. PATIENT WAS PROVIDED ORANGE JUICE AND SNACKS.
[2021-03-06] MEDS: AMPICILLIN SODIUM 2 GM in IV NS 0.9% 100 ML IV SCH ×2 (04:05→16:40)
[2021-03-06] MEDS: IV NS 0.9% 250 ML IV PRN (04:06)
[2021-03-06 06:59] LABS: BASOPHILS # (AUTO) 0.1 /CMM (0.0-0.2); BASOPHILS % (AUTO) 1.6 % (0.0-2.0); EOSINOPHILS % (AUTO) 1.3 % (0.0-6.0); HEMATOCRIT 26 % (39-51); HEMOGLOBIN 8.2 g/dL (13.5-17.5); LYMPHOCYTES # (AUTO) 2.4 /CMM (0.8-4.8); LYMPHOCYTES % (AUTO) 33.7 % (20.0-44.0); MEAN CORPUSCULAR HGB CONC 31 g/dl (31.0-36.0); MEAN CORPUSCULAR VOLUME 91 fL (80-96); MONOCYTES # (AUTO) 0.7 /CMM (0.1-1.30); NEUTROPHILS # (AUTO) 3.7 /CMM (1.8-8.9); NEUTROPHILS % (AUTO) 53.4 % (43.0-81.0); PLATELET COUNT (AUTO) 434 /CMM (150-450)
--- NOTE | 2021-03-06 07:18 | NUR ---
RN CLOSING NOTE PATIENT IN BED, EYES CLOSED. EASILY AWAKENED. NO SIGNIFICANT CHANGES DURING THE SHIFT. PATIENT IS ABLE TO MAKE NEEDS KNOW. DOES NOT COMPLAIN OF PAIN AT THIS TIME. BREATHING EVEN AND UNLABORED. TOLERATING ROOM AIR. ALL NEEDS MET AND ATTENDED. WOUND TX DONE. ALL ORDERS CARRIED OUT. ENDORSED TO DAY SHIFT NURSE FOR JUAN MANUEL.
[2021-03-06] MEDS: INSULIN LISPRO/ASPART 100 UNIT/ML CARTRIDGE SQ SCH ×2 (07:30→16:53)
[2021-03-06] MEDS: BLOOD SUGAR DIAGNOSTIC 1 EACH STRIP IN SCH ×4 (07:30→22:00)
--- NOTE | 2021-03-06 07:30 | NUR ---
RN NOTE PATIENT REFUSED ACCU CHECK. ATTEMPTED TO EDUCATE PATIENT ON IMPORTANCE OF ADHERENCE AND POTENTIAL SIDE EFFECTS. PATIENT STILL REFUSED.
--- NOTE | 2021-03-06 07:35 | NUR ---
RN NOTE HUMALOG HELD DUE TO PATIENT REFUSING ACCU CHECK.
[2021-03-06 07:37] LABS: CALCIUM, SERUM 7.8 mg/dL (8.5-10.1); CREATININE 4.1 mg/dL (0.6-1.3); POTASSIUM 4.9 mmol/L (3.5-5.1)
--- NOTE | 2021-03-06 07:50 | NUR ---
RN NOTE PATIENT IS CURRENTLY IN BED WITH HOB AT SEMI FOWLERS POSITION. PATIENT IS ON ROOM AIR WITH NO SIGNS OF LABORED BREATHING. PATIENT IS AOX3. DANIEL MIDLINE IS PATENT AND INTACT. BED IS LOCKED IN THE LOWEST POSITION, 3 GUARD RAILS RAISED, CALL ZAVALETA WITHIN REACH, AND ALL HOSPITAL SAFETY PRECAUTIONS ARE BEING FOLLOWED. WILL CONTINUE TO MONITOR THROUGHOUT SHIFT.
[2021-03-06] MEDS: MECLIZINE HCL 25 MG TABLET PO SCH (08:22)
[2021-03-06] MEDS: CALCIUM CARB 600MG /VIT D 1 EACH TABLET PO SCH (08:22)
[2021-03-06] MEDS: LISINOPRIL (10MG) 10 MG TABLET PO SCH (08:22)
[2021-03-06] MEDS: ASPIRIN 81 MG TAB.CHEW PO SCH (08:22)
[2021-03-06] MEDS: FOLIC ACID 1 MG TABLET PO SCH (08:22)
[2021-03-06] MEDS: SEVELAMER CARBONATE 800 MG TABLET PO SCH (08:22)
[2021-03-06] MEDS: PANTOPRAZOLE 40 MG TABLET.DR PO SCH (08:22)
[2021-03-06] MEDS: TIMOLOL 0.5% SOLN OPHTH 5 ML BOTTLE OP SCH ×2 (08:23→16:40)
[2021-03-06] MEDS: ACIDOPHILUS/BULGARICUS 1 EACH TAB.CHEW PO SCH ×2 (08:23→16:39)
[2021-03-06] MEDS: BRIMONIDINE TARTRATE OPHT SOLN 5 ML BOTTLE OP SCH ×2 (08:24→16:40)
[2021-03-06] MEDS: SODIUM BICARBONATE 650 MG TABLET PO SCH ×2 (08:26→16:42)
[2021-03-06] MEDS: NEPRO VAN 237 ML CAN PO SCH ×2 (08:26→16:53)
--- NOTE | 2021-03-06 18:20 | NUR ---
RN NOTE ATTEMPTED TO CONTACT TWO DIFFERENT FAMILY MEMBERS FOR CONSENT FOR TUNNEL CATHETER PLACEMENT. NO RESPONSE. WILL ENDORSE TO PHARMACIST CRITICAL CARE RN.
--- NOTE | 2021-03-06 18:46 | NUR ---
RN NOTE PATIENT IS CURRENTLY IN BED WITH HOB AT SEMI FOWLERS POSITION. PATIENT IS ON ROOM AIR WITH NO SIGNS OF LABORED BREATHING. PATIENT IS AOX3. DANIEL MIDLINE IS PATENT AND INTACT. BED IS LOCKED IN THE LOWEST POSITION, 3 GUARD RAILS RAISED, CALL ZAVALETA WITHIN REACH, AND ALL HOSPITAL SAFETY PRECAUTIONS ARE BEING FOLLOWED. ALL DUE MEDS GIVEN AND PATIENT REMAINED STABLE THROUGHOUT SHIFT. WILL ENDORSE TO ENGINEERING TECHNICAL WRITER RN.
[2021-03-06 20:03] VITALS: BP 129/63
[2021-03-06] MEDS: INSULIN GLARGINE, 100 UNIT/ML CARTRIDGE SQ SCH (22:00)
--- NOTE | 2021-03-06 22:00 | NUR ---
blood sugar 213 covered with 4 units reg insulin s.q Addendum: 03/07/21 at 0421 by [facility] INPATIENT RN3 RN patients blood sugar was 83 no coverage given blood sugar on above note error was another patient in 114.
[2021-03-06] MEDS: LATANOPROST EYE DROP 0.005% 2.5 ML BOTTLE OP SCH (23:28)
[2021-03-06] MEDS: MIRTAZAPINE 15 MG TABLET PO SCH (23:29)
[2021-03-06] MEDS: LINAGLIPTIN 5 MG TABLET PO SCH (23:29)
[2021-03-06] MEDS: GABAPENTIN 100 MG CAPSULE PO SCH (23:29)
[2021-03-07 04:00] VITALS: BP 138/67
[2021-03-07] MEDS: AMPICILLIN SODIUM 2 GM in IV NS 0.9% 100 ML IV SCH (04:58)
--- NOTE | 2021-03-07 07:06 | NUR ---
patients blood sugar 83 lantus not given last nite.
[2021-03-07 07:46] LABS: BILIRUBIN,TOTAL 0.4 mg/dL (0.2-1.0); CALCIUM, SERUM 7.5 mg/dL (8.5-10.1); CREATININE 3.8 mg/dL (0.6-1.3); POTASSIUM 5.1 mmol/L (3.5-5.1); TOTAL PROTEIN, SERUM 5.8 g/dL (6.4-8.2)
[2021-03-07 07:51] LABS: BASOPHILS # (AUTO) 0.1 /CMM (0.0-0.2); EOSINOPHILS % (AUTO) 1.9 % (0.0-6.0); HEMATOCRIT 26 % (39-51); HEMOGLOBIN 8.2 g/dL (13.5-17.5); LYMPHOCYTES # (AUTO) 2.2 /CMM (0.8-4.8); LYMPHOCYTES % (AUTO) 32.3 % (20.0-44.0); MEAN CORPUSCULAR HGB CONC 32 g/dl (31.0-36.0); MEAN CORPUSCULAR VOLUME 91 fL (80-96); MONOCYTES # (AUTO) 0.7 /CMM (0.1-1.30); MONOCYTES % (AUTO) 9.8 % (2.0-12.0); NEUTROPHILS # (AUTO) 3.7 /CMM (1.8-8.9); PLATELET COUNT (AUTO) 486 /CMM (150-450); WHITE BLOOD COUNT (AUTO) 6.8 K/uL (4.3-11.0)
[2021-03-07] MEDS: PANTOPRAZOLE 40 MG TABLET.DR PO SCH (08:04)
[2021-03-07] MEDS: TIMOLOL 0.5% SOLN OPHTH 5 ML BOTTLE OP SCH ×2 (08:13→16:59)
[2021-03-07] MEDS: BRIMONIDINE TARTRATE OPHT SOLN 5 ML BOTTLE OP SCH ×2 (08:13→16:59)
[2021-03-07 08:14] LABS: ALBUMIN 1.1 g/dL (3.4-5.0)
[2021-03-07] MEDS: BLOOD SUGAR DIAGNOSTIC 1 EACH STRIP IN SCH ×4 (08:22→21:51)
[2021-03-07] MEDS: INSULIN LISPRO/ASPART 100 UNIT/ML CARTRIDGE SQ SCH ×2 (08:27→16:30)
[2021-03-07] MEDS: NEPRO VAN 237 ML CAN PO SCH ×2 (09:00→18:16)
[2021-03-07] MEDS ORDERED: IOHEXOL 240MG/ML 50 ML IV ONE (11:23)
[2021-03-07] MEDS ORDERED: LIDOCAINE HCL/MPF 1% 30 ML VIAL IJ ONE (11:23)
[2021-03-07] MEDS ORDERED: HEPARIN SODIUM, PORCINE 1,000 UNIT/ML VIAL ONE (11:23)
[2021-03-07] MEDS: SODIUM BICARBONATE 650 MG TABLET PO SCH ×2 (11:28→18:06)
[2021-03-07] MEDS: SEVELAMER CARBONATE 800 MG TABLET PO SCH (11:28)
[2021-03-07] MEDS: CALCIUM CARB 600MG /VIT D 1 EACH TABLET PO SCH (11:28)
[2021-03-07] MEDS: MECLIZINE HCL 25 MG TABLET PO SCH (11:28)
[2021-03-07] MEDS: ACIDOPHILUS/BULGARICUS 1 EACH TAB.CHEW PO SCH ×2 (11:28→18:06)
[2021-03-07] MEDS: ASPIRIN 81 MG TAB.CHEW PO SCH (11:28)
[2021-03-07] MEDS: FOLIC ACID 1 MG TABLET PO SCH (11:29)
[2021-03-07] MEDS: LISINOPRIL (10MG) 10 MG TABLET PO SCH (11:30)
[2021-03-07] MEDS: INSULIN REGULAR, HUMAN 100 UNIT/ML 3 ML VIAL SQ PRN ×2 (16:51→21:58)
[2021-03-07] MEDS: VANCOMYCIN POST DIALYSIS 500MG IV PRN (16:59)
--- NOTE | 2021-03-07 19:30 | NUR ---
RN Opening Notes Patient was last seen sleeping in bed. Patient's alert and oriented x3. Patient is on room air with no respiratory distress noted. Patient has a left upper arm midline which is intact and pateint. Patient has no signs/symptoms of acute distress at this time. Safety measures in place: Bed locked, bed alarm on, side rails up x3, and call light within easy reach of the patient. Will continue to monitor the patient.
[2021-03-07 20:00] VITALS: BP 161/65
[2021-03-07] MEDS: LATANOPROST EYE DROP 0.005% 2.5 ML BOTTLE OP SCH (21:25)
[2021-03-07] MEDS: MIRTAZAPINE 15 MG TABLET PO SCH (21:26)
[2021-03-07] MEDS: LINAGLIPTIN 5 MG TABLET PO SCH (21:26)
[2021-03-07] MEDS: GABAPENTIN 100 MG CAPSULE PO SCH (21:26)
--- NOTE | 2021-03-07 21:53 | NUR ---
RN Notes Patient's blood sugar at 2144 was 211 mg/dL. Will give 4 units of regular insulin.
[2021-03-07] MEDS: INSULIN GLARGINE, 100 UNIT/ML CARTRIDGE SQ SCH (21:56)
--- NOTE | 2021-03-08 06:57 | NUR ---
RN Closing Notes Patient was last seen sleeping in bed. Patient's alert and oriented x3. Patient is on room air with no respiratory distress noted. Patient has a left upper arm midline which is running normal saline to keep the vein open. Patient has no signs/symptoms of acute distress at this time. Safety measures in place: Bed locked, bed alarm on, side rails up x3, and call light within easy reach of the patient. Will endorse care to the day shift nurse.
[2021-03-08] MEDS: BLOOD SUGAR DIAGNOSTIC 1 EACH STRIP IN SCH ×4 (07:30→21:54)
[2021-03-08] MEDS: INSULIN LISPRO/ASPART 100 UNIT/ML CARTRIDGE SQ SCH ×2 (07:30→16:30)
[2021-03-08 07:47] LABS: CALCIUM, SERUM 7.5 mg/dL (8.5-10.1); CREATININE 3.6 mg/dL (0.6-1.3); POTASSIUM 4.9 mmol/L (3.5-5.1)
--- NOTE | 2021-03-08 07:51 | NUR ---
RN OPENING NOTES WOW is not working properly IT contacted will be here in 30 min or less to fix WOW computer, i am unable to scan medications and get the meds to each patient on time at this time as i am awaiting for IT to come and HELP FIX. Received Patient sleeping in bed, No c/o pain, No SOB noted, A&O x 3, room air with no labored breathing noted, Patient has a left upper arm midline which is running normal saline KVO, no S/S of acute distress noted at this time, All Safety measures in place: Bed locked, bed alarm on, side rails up x3, call light in reach of the patient.
[2021-03-08] MEDS: SEVELAMER CARBONATE 800 MG TABLET PO SCH (08:26)
[2021-03-08] MEDS: FOLIC ACID 1 MG TABLET PO SCH (08:26)
[2021-03-08] MEDS: ACIDOPHILUS/BULGARICUS 1 EACH TAB.CHEW PO SCH ×2 (08:27→17:38)
[2021-03-08] MEDS: MECLIZINE HCL 25 MG TABLET PO SCH (08:27)
[2021-03-08] MEDS: SODIUM BICARBONATE 650 MG TABLET PO SCH ×2 (08:27→17:38)
[2021-03-08] MEDS: PANTOPRAZOLE 40 MG TABLET.DR PO SCH (08:27)
[2021-03-08] MEDS: CALCIUM CARB 600MG /VIT D 1 EACH TABLET PO SCH (08:27)
[2021-03-08] MEDS: ASPIRIN 81 MG TAB.CHEW PO SCH (08:27)
[2021-03-08] MEDS: LISINOPRIL (10MG) 10 MG TABLET PO SCH (08:29)
--- NOTE | 2021-03-08 08:49 | NUR ---
RN NOTES BS = 73 ADVISED DO NOT PROVIDE THE INSULIN AT THIS TIME, PT IS EATING BREAK FAST WILL RECHECK INSULIN LEVELS TO BE SAFE. MD AWARE, WILL MONITOR, FACILITIES OPERATIONS TECHNICIAN AWARE WILL MONITOR BS LEVELS CLOSELY
[2021-03-08] MEDS: NEPRO VAN 237 ML CAN PO SCH ×2 (10:39→17:45)
[2021-03-08 13:19] VITALS: BP 159/69
--- NOTE | 2021-03-08 14:42 | NUR ---
RN NOTES MD ORDER TO TRANSFER PT OUT TO [facility], REPORT GIVEN TO TIM's NURSE WOUND CARE SHE WAS IN A MEETING AT THE TIME PHONE # [phone] ALL DETAILED INFORMATION AND MEDICATIONS RELAYED AND PACKET FILLED OUT TO DELIVER TO RN ELECTRIC MULE DRIVER AT TIME OF ARRIVAL, FAMILY NOTIFIED, MD AWARE AND MADE ORDER, THE ABT WILL BE CONTINUED FOR THE NEXT 7 DAYS, ALL MD ORDERS ADMIN AND CARRIED OUT , NO S/S OF ANY ADVERSE EFFECTS AT THIS TIME NOTED, WILL CONTINUE TO MONITOR .
--- NOTE | 2021-03-08 14:46 | NUR ---
RN NOTES BRIMONIDINE TARTRATE 0.2% AND TIMOPTIC SOLN TIMOLOL OPHTH 0.5% ARE NOT LOCATED IN [facility] OR ROOM PHARMACY NOTIFIED AND WILL DELIVER UP MEDICATIONS, FAMILY DOES NOT HAVE THE MEDICATIONS BOTH EYE DROPS ARE NOT FOUND AT THIS TIME AND A SEARCH HAS BEEN ONGOING SO AT THIS TIME PHARM WILL BRING UP TWO NEW BOTTLES OF EACH ORDER AND WILL BE ADMIN PER MD ORDERS.
[2021-03-08] MEDS: TIMOLOL 0.5% SOLN OPHTH 5 ML BOTTLE OP SCH ×2 (16:38→17:39)
[2021-03-08] MEDS: BRIMONIDINE TARTRATE OPHT SOLN 5 ML BOTTLE OP SCH ×2 (16:39→17:39)
[2021-03-08] MEDS: VANCOMYCIN POST DIALYSIS 500MG IV PRN (16:39)
--- NOTE | 2021-03-08 17:56 | NUR ---
RN NOTES ALL MD ORDERS CARRIED OUT SOON POSSIBLE, BS READING MACHINE WAS MALFUNCTIONING GOT IT TO PROPERLY WORK, BS WAS AT 59, MD NOTIFIED, GAVE PT OJ AND DINNER TRAY ATE 50% DRANK 2 OJ AND BS READING IS NOW SET AT 132 , HELD 8 UNIT ORDER DUE TO LOW BS READING, BED IN LOW POSITION, SAFETY MEASURES IN PLACE, DAUGHTER AT BED SIDE, MADE COMFORTABLE , NO ASPIRATIONS NOTED, NO SOB, VS IN STABLE BASELINE RANGE, WILL CONTINUE TO MONITOR , CALL LIGHT IN REACH.
--- NOTE | 2021-03-08 19:08 | NUR ---
RN Closing Notes Patient's A&O x 3, Patient on room air, no respiratory distress noted, DANIEL Midline intact patent, no s/s of distress no SOB noted, Safety measures in place: Bed locked, bed alarm on, side rails up x3, and call light within easy reach of the patient. Will continue to monitor the patient. Dialysis performed no complications noted, will continue to monitor B/P no significant changes noted at this time, BS maintaining baseline normal levels at this time.
--- NOTE | 2021-03-08 19:50 | NUR ---
RN NOTE PATIENT IN BED RESTING. ALERT AND ORIENTED X3. ON ROOM AIR, NO SIGNS OF SHORTNESS OF BREATH. BREATHING EVEN AND UNLABORED. DENIES ANY PAIN AT THIS TIME. NOTED WITH LEFT UPPER ARM MIDLINE PATENT AND INTACT. BED LOCKED AND IN LOWEST POSITION. CALL LIGHT WITHIN REACH. ALL NEEDS ANTICIPATED.
[2021-03-08 20:00] VITALS: BP 122/75
[2021-03-08] MEDS: MIRTAZAPINE 15 MG TABLET PO SCH (21:55)
[2021-03-08] MEDS: GABAPENTIN 100 MG CAPSULE PO SCH (21:55)
[2021-03-08] MEDS: LINAGLIPTIN 5 MG TABLET PO SCH (21:55)
[2021-03-08] MEDS: LATANOPROST EYE DROP 0.005% 2.5 ML BOTTLE OP SCH (21:55)
[2021-03-08] MEDS: INSULIN REGULAR, HUMAN 100 UNIT/ML 3 ML VIAL SQ PRN (21:57)
[2021-03-08] MEDS ORDERED: INSULIN GLARGINE, 100 UNIT/ML CARTRIDGE SQ SCH (22:00)
--- NOTE | 2021-03-08 22:10 | NUR ---
BLOOD SUGAR 104, NO INSULIN COVERAGE GIVEN. SHANNON HELD. CALL LIGHT WITHIN REACH.
[2021-03-09 05:11] VITALS: BP 123/81
[2021-03-09 07:30] LABS: CALCIUM, SERUM 7.6 mg/dL (8.5-10.1); POTASSIUM 4.8 mmol/L (3.5-5.1)
[2021-03-09] MEDS: BLOOD SUGAR DIAGNOSTIC 1 EACH STRIP IN SCH ×3 (07:30→17:19)
[2021-03-09 08:23] LABS: IRON, SERUM 39 ug/dl (50-175)
[2021-03-09 08:49] LABS: TOTAL IRON BINDING CAPACITY 107 ug/dl (250-450)
[2021-03-09] MEDS: TIMOLOL 0.5% SOLN OPHTH 5 ML BOTTLE OP SCH ×2 (09:24→16:55)
[2021-03-09] MEDS: SEVELAMER CARBONATE 800 MG TABLET PO SCH (09:24)
[2021-03-09] MEDS: LISINOPRIL (10MG) 10 MG TABLET PO SCH (09:25)
[2021-03-09] MEDS: CALCIUM CARB 600MG /VIT D 1 EACH TABLET PO SCH (09:25)
[2021-03-09] MEDS: ASPIRIN 81 MG TAB.CHEW PO SCH (09:25)
[2021-03-09] MEDS: ACIDOPHILUS/BULGARICUS 1 EACH TAB.CHEW PO SCH ×2 (09:25→16:54)
[2021-03-09] MEDS: PANTOPRAZOLE 40 MG TABLET.DR PO SCH (09:26)
[2021-03-09] MEDS: FOLIC ACID 1 MG TABLET PO SCH (09:26)
[2021-03-09] MEDS: MECLIZINE HCL 25 MG TABLET PO SCH (09:26)
[2021-03-09] MEDS: INSULIN LISPRO/ASPART 100 UNIT/ML CARTRIDGE SQ SCH ×2 (09:28→16:30)
[2021-03-09] MEDS: BRIMONIDINE TARTRATE OPHT SOLN 5 ML BOTTLE OP SCH ×2 (09:30→16:54)
[2021-03-09] MEDS: SODIUM BICARBONATE 650 MG TABLET PO SCH ×2 (09:30→16:54)
[2021-03-09] MEDS: NEPRO VAN 237 ML CAN PO SCH (09:30)
[2021-03-09 10:34] VITALS: BP 152/55
--- NOTE | 2021-03-09 10:36 | NUR ---
pale looking gentelman, in bed, and eating his breakfast, about 50% consumption. Using his urinal , output about 75cc. no complaint of pain at this time, " just about 2weeks earlier, had R eboni in this hospital, " denied pain nor discomfort on the site.
[2021-03-09] MEDS: DEXTROSE 50%-WATER 50 ML DISP.SYRIN IV PRN ×2 (11:29→17:19)
--- NOTE | 2021-03-09 11:41 | NUR ---
blood sugar just now checked, 57. One amp of d50 pushed via L upper arm midline. juice given, and nurse care manager feeding lunch will check again bs at 12noon
[2021-03-09] MEDS ORDERED: TIMO5DRO18 OP (14:48)
[2021-03-09] MEDS ORDERED: VANC500V IV (14:48)
[2021-03-09] MEDS ORDERED: Blood Sugar Diagnostic IN (14:48)
--- NOTE | 2021-03-09 14:56 | NUR ---
after d50 pushed, daughter fed him lunch, bs up to 108 12noon, HD started 2pm completed HD, uneventfully seen by LEAFLET DISTRIBUTOR, discharge to home written, attempted to contact case resource manager, ext [phone] , just to make sure patient is safe to go home with HH arrangement.
[2021-03-09 16:45] VITALS: BP 146/57
[2021-03-09] MEDS: VANCOMYCIN POST DIALYSIS 500MG IV PRN (16:51)
--- NOTE | 2021-03-09 18:36 | NUR ---
1700 bs this time 57, d50 pushed one amp 1759 bs checked again 108, after apple juice x1 given, and 2 honey crackers did not eat dinner. 1820 picked by ambulance, alert, oriented, in distress noted. Left the floor with Midline on DANIEL , and R upper chest ashley intact
== END 2021-03-09 18:23 | disposition home health service (06) | DRG 314 ==
LOC: ER 12:02 → TELE1 14:07 → MEDSG1 03-05 08:11
PROVIDERS: ADMIT Nurse Practitioner Acute Care; ATTEND Nurse Practitioner Acute Care
PROC: 0JHD3XZ Insertion of Tunneled Vascular Access Device into Right Upper Arm Subcutaneous Tissue and Fascia, Percutaneous Approach (ICD-10-PCS; principal; 2021-03-07)
PROC: 5A1D70Z Performance of Urinary Filtration, Intermittent, Less than 6 Hours Per Day (ICD-10-PCS; 2021-03-07)
PROC: 05HM33Z Insertion of Infusion Device into Right Internal Jugular Vein, Percutaneous Approach (ICD-10-PCS; 2021-03-07)
PROC: B543ZZA Ultrasonography of Right Jugular Veins, Guidance (ICD-10-PCS; 2021-03-07)
DX: T80.211A Bloodstream infection due to central venous catheter, initial encounter (principal); N18.6 End stage renal disease; E43 Unspecified severe protein-calorie malnutrition; A41.81 Sepsis due to Enterococcus; T82.41XA Breakdown (mechanical) of vascular dialysis catheter, initial encounter; I12.0 Hypertensive chronic kidney disease with stage 5 chronic kidney disease or end stage renal disease; E87.2 Acidosis; J98.11 Atelectasis; R64 Cachexia; Z89.511 Acquired absence of right leg below knee; Z79.4 Long term (current) use of insulin; Z99.2 Dependence on renal dialysis; E87.5 Hyperkalemia; D63.1 Anemia in chronic kidney disease; E11.51 Type 2 diabetes mellitus with diabetic peripheral angiopathy without gangrene; E11.22 Type 2 diabetes mellitus with diabetic chronic kidney disease; Z20.822 Contact with and (suspected) exposure to COVID-19; Y84.1 Kidney dialysis as the cause of abnormal reaction of the patient, or of later complication, without mention of misadventure at the time of the procedure; E11.649 Type 2 diabetes mellitus with hypoglycemia without coma; Y92.9 Unspecified place or not applicable; E11.65 Type 2 diabetes mellitus with hyperglycemia; Z79.899 Other long term (current) drug therapy; Z79.82 Long term (current) use of aspirin; E78.5 Hyperlipidemia, unspecified; H40.9 Unspecified glaucoma; J45.909 Unspecified asthma, uncomplicated; D63.8 Anemia in other chronic diseases classified elsewhere; Z87.2 Personal history of diseases of the skin and subcutaneous tissue
CPT/HCPCS: 36415; 71045-TC; 80048-TC; 80053-TC; 80202-TC; 82962-TC; 83540-TC; 83735-TC; 84100-TC; 85025-TC; 85730-TC; 87040-TC; 87081-TC; 90935-TC; C1750; C1769; G0378; J0290; J0690; J0885; J1170; J1644; J1815; J2704; J3370; J3490; J7030; J7050; J7060; J8597; Q9966; U0003

== ENCOUNTER 2021-04-05 09:31 | Emergency (ER) | payer MEDICARE, OTHER ==
[~2021-04-05] VITALS: Ht 157.5 cm; Wt 54.4 kg
[~2021-04-05 09:31] MED LIST changes: +ACET-2605 PO; +BIMA2.5D5 LEFTEYE; +BRIM5DRO2 EACHEYE; +Blood Sugar Diagnostic IN; +GABA-532 PO; -GENTAMICIN OINT TP; +HYDR-3980 PO; +INSU100V3 SQ; -INSU100V7 SQ; +LINA5TAB PO; -METF-440 PO; +MIRT-90 PO; -MUPI22OI2 TP; +MUPI22OI7 TD; +NUT.237L85 PO; +ONDA4TAB5 PO; +PANT40TA2 PO; +PETR113O TP; -SITA1TAB6 PO; +SODI650T PO; +TIMO5DRO18 OP; +VANC500V IV
--- NOTE | 2021-04-05 09:53 | NUR ---
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 Denies pain. Skin intact. Will continue to monitor the patient.
--- NOTE | 2021-04-05 10:27 | NUR ---
Patient discharged to home in stable condition. Written and verbal after care instructions given. Patient verbalizes understanding of instruction.
[2021-04-05 10:28] VITALS: BP 127/85
== END 2021-04-05 10:28 | disposition home or self-care (01) ==
LOC: ER 09:33
DX: Z48.01 Encounter for change or removal of surgical wound dressing (principal); Z89.511 Acquired absence of right leg below knee; I10 Essential (primary) hypertension; E11.9 Type 2 diabetes mellitus without complications; Z79.899 Other long term (current) drug therapy; Z79.4 Long term (current) use of insulin; Z79.82 Long term (current) use of aspirin

== ENCOUNTER 2021-04-19 08:30 | Outpatient (CLI) | payer MEDICARE ==
[2021-04-19] MEDS ORDERED: GENTAMICIN 0.1% CREAM 15 GM TUBE ONE (09:13)
[2021-04-19] MEDS ORDERED: MUPIROCIN 2% CREAM 15 GM TUBE TP ONE (09:13)
[2021-04-19 10:35] LABS: BASOPHILS % (AUTO) 0.8 % (0.0-2.0); EOSINOPHILS % (AUTO) 1.7 % (0.0-6.0); HEMATOCRIT 43 % (39-51); LYMPHOCYTES # (AUTO) 2.2 K/uL (0.8-4.8); LYMPHOCYTES % (AUTO) 47.8 % (20.0-44.0); MEAN CORPUSCULAR HGB CONC 32 g/dl (31.0-36.0); MEAN CORPUSCULAR VOLUME 94 fL (80-96); MONOCYTES # (AUTO) 0.7 K/uL (0.1-1.30); MONOCYTES % (AUTO) 14.7 % (2.0-12.0); NEUTROPHILS # (AUTO) 1.6 K/uL (1.8-8.9); PLATELET COUNT (AUTO) 221 K/uL (150-450); RED BLOOD CELL COUNT(AUTO) 4.63 MIL/uL (4.5-6.0); WHITE BLOOD COUNT (AUTO) 4.6 K/uL (4.3-11.0)
== END 2021-04-19 23:59 | disposition home health service (06) ==
LOC: WOU 08:30
PROVIDERS: ATTEND Podiatrist Foot & Ankle Surgery
DX: E11.622 Type 2 diabetes mellitus with other skin ulcer (principal); L97.812 Non-pressure chronic ulcer of other part of right lower leg with fat layer exposed; E11.621 Type 2 diabetes mellitus with foot ulcer; L97.525 Non-pressure chronic ulcer of other part of left foot with muscle involvement without evidence of necrosis; L97.528 Non-pressure chronic ulcer of other part of left foot with other specified severity; S81.011A Laceration without foreign body, right knee, initial encounter; X58.XXXA Exposure to other specified factors, initial encounter; Y92.89 Other specified places as the place of occurrence of the external cause; E11.42 Type 2 diabetes mellitus with diabetic polyneuropathy; L03.115 Cellulitis of right lower limb; Z89.511 Acquired absence of right leg below knee; Z79.4 Long term (current) use of insulin; Z79.82 Long term (current) use of aspirin
CPT/HCPCS: 11042; 36415; 85025-TC; 85652-TC; 86140-TC; 87070-TC; 87075-TC; 87186-TC

== ENCOUNTER 2021-04-24 14:30 | Outpatient (CLI) | payer MEDICARE, OTHER ==
[2021-04-24] MEDS ORDERED: GENTAMICIN 0.1% CREAM 15 GM TUBE ONE (15:22)
== END 2021-04-24 23:59 | disposition home health service (06) ==
LOC: WOU 14:30
PROVIDERS: ATTEND Podiatrist Foot & Ankle Surgery
DX: E11.621 Type 2 diabetes mellitus with foot ulcer (principal); L97.428 Non-pressure chronic ulcer of left heel and midfoot with other specified severity; L97.522 Non-pressure chronic ulcer of other part of left foot with fat layer exposed; L97.528 Non-pressure chronic ulcer of other part of left foot with other specified severity; E11.622 Type 2 diabetes mellitus with other skin ulcer; L97.812 Non-pressure chronic ulcer of other part of right lower leg with fat layer exposed; S81.011A Laceration without foreign body, right knee, initial encounter; X58.XXXA Exposure to other specified factors, initial encounter; Y92.89 Other specified places as the place of occurrence of the external cause; E11.52 Type 2 diabetes mellitus with diabetic peripheral angiopathy with gangrene; L03.115 Cellulitis of right lower limb; Z89.511 Acquired absence of right leg below knee; Z99.3 Dependence on wheelchair; Z79.4 Long term (current) use of insulin
CPT/HCPCS: 11042; 87070-TC; 87075-TC; 87186-TC

== ENCOUNTER 2021-05-10 09:15 | Outpatient (CLI) | payer MEDICARE, OTHER ==
[2021-05-10] MEDS ORDERED: GENTAMICIN 0.1% CREAM 15 GM TUBE ONE (09:38)
== END 2021-05-10 23:59 | disposition home health service (06) ==
LOC: WOU 09:15
PROVIDERS: ATTEND Podiatrist Foot & Ankle Surgery
DX: E11.622 Type 2 diabetes mellitus with other skin ulcer (principal); T87.89 Other complications of amputation stump; E11.621 Type 2 diabetes mellitus with foot ulcer; S81.011D Laceration without foreign body, right knee, subsequent encounter; W45.8XXD Other foreign body or object entering through skin, subsequent encounter; L97.422 Non-pressure chronic ulcer of left heel and midfoot with fat layer exposed; L97.522 Non-pressure chronic ulcer of other part of left foot with fat layer exposed; L97.812 Non-pressure chronic ulcer of other part of right lower leg with fat layer exposed; H40.9 Unspecified glaucoma; E11.40 Type 2 diabetes mellitus with diabetic neuropathy, unspecified; Z89.511 Acquired absence of right leg below knee; L03.115 Cellulitis of right lower limb; Z79.4 Long term (current) use of insulin; Z79.899 Other long term (current) drug therapy
CPT/HCPCS: 11042